=== PATIENT | female | born 1940 | race Caucasian/White ===

== ENCOUNTER 2018-07-31 09:31 | Inpatient (IN) | payer MEDICARE, SELFPAY ==
[2018-07-31] VITALS (20 sets, daily range): BP systolic 74–119; BP diastolic 30–64; PULSE 73–87; RESP 16–23; TEMP 36.4–38.5; O2SAT 94–100; BMI 32.3; BMI 30.4
--- NOTE | 2018-07-31 09:48 | RAD_ITS ---
STUDY: X-RAY CHEST REASON FOR EXAM: Female, 78 years old. Shortness of breath TECHNIQUE: A single frontal view of the chest was obtained. COMPARISON: December 29, 2016 FINDINGS: Lines and tubes: None. Lungs: Under aerated. Minimal increased markings in both lung bases. Pleura: No demonstrated abnormality. Mediastinum/brandon: Unremarkable. Cardiovascular: Moderately enlarged cardiac silhouette. A pacing device is again seen in the left chest. Indistinct central vessels. Atherosclerotic calcifications in the thoracic aorta. Soft tissues: Surgical clips are again seen in the right axilla. Bones: Degenerative changes in spine and shoulders. Upper abdomen: No demonstrated abnormality. RAD/Chest 1 View (Portable) IMPRESSION: Moderate enlargement of the cardiac silhouette with vascular congestion. There is no obvious pleural effusion. Minimal bibasilar atelectasis. Electronically Signed: Whitney Merino MD at 10:55 EST Tel Direct: [phone], Service support ,
--- NOTE | 2018-07-31 09:48 | EKG12_ITS ---
Test Reason : Blood Pressure : / mmHG Vent. Rate : 081 BPM Atrial Rate : 081 BPM P-R Int : 122 ms QRS Dur : 174 ms QT Int : 460 ms P-R-T Axes : -12 255 105 degrees QTc Int : 534 ms Atrial-sensed ventricular-paced rhythm Biventricular pacemaker detected Abnormal ECG Confirmed by AMNA GOODEN, BRAULIO ([id number]), manager editorial RADHA ELLIOTT ([id number] on 08/02/2018 5:06:46 PM Referred By: TAY Confirmed By:BRAULIO WOO MD
--- NOTE | 2018-07-31 09:57 | ED.DCSUM_ITS ---
- ER Visit Summary Date of Service: 07/31/18 Chief Complaint: Cold symptoms and diarrhea History of Present Illness: The patient is a 78 F who is currently undergoing chemotherapy for metastatic breast cancer. Her last treatment was on July 28 in [place]. That evening she developed congestion, cough, diarrhea. Her left leg has been erythematous for some time. She noted increased drainage from that leg over the past 3 or 4 days. Patient does not believe she has had fever, but states she does not have a thermometer. Patient has been on the same chemotherapy regimen for some time and is never had this reaction with her chemo in the past. Physical Examination: Vital signs in triage are unremarkable. Patient sitting upright in bed no acute distress. Head neck examination unremarkable. Heart is regular rate and rhythm. Lung sounds are clear. Abdomen is soft and nontender. Hypoactive bowel sounds are noted. Left lower extremity examination is significant for erythema, warmth, and tenderness of the distal aspect of the lower leg and foot. Findings are consistent with cellulitis. There is an abrasion along the medial lower leg with serosanguineous drainage. Test Results: EKG is paced at [address] change. CBC was a white count of 14.3 with 93% neutrophils. Chemistry studies reveal a sodium of 131, chloride 94. Glucose is 164. BUN is 30 and creatinine is 1.36. LFTs significant for total bili of 1.4 and a direct bili 0.36. Lactate is mildly elevated at 2.3. Portable chest x-ray shows moderate enlargement of the cardiac silhouette with vascular congestion. No obvious pleural effusion. Because we could not get good waveform to monitor the patient's O2 sat and she was complaining of shortness of breath and ABG was performed. On 3 L nasal cannula PO2 is 114 and saturation is 99%. Emergency Department Course and Treatment: Patient is given IV fluids along with IV clindamycin. Blood cultures have been sent. She will require admission for further treatment. Treatment Plan: [] Disposition: Admit Impression: Cellulitis left lower extremity This note was generated with [employer] dictation software. It may contain incorrect words, spelling, and punctuation that were not noted in review of the chart prior to signing ED Disposition - Plan for ED Patient: Chief Complaint: General Illness Referrals: NOT,DEFINED [NON-STAFF] -
[2018-07-31] MEDS: 0.9% Normal Saline 1,000 ML 150 ML IV (09:59)
[2018-07-31 10:20] LABS: Absolute Lymphocyte Count 0.43 X10^3/ul (0.83-4.51); Absolute Neutrophil Count 13.4 X10^3/uL (2.0-7.7); Basophil# 0.01 X10^3/uL; Basophil% 0.1 % (0-1); Hematocrit 39.6 % (37-47); Hemoglobin 13.4 g/dl (12.0-15.0); Lymphocyte # 0.43 X10^3/ul (4.0); Mean Corp Hgb Conc 33.8 g/gl (32-36); Mean Corpuscular Hgb 31.2 pg (27.0-32.0); Mean Corpuscular Volume 92.3 fL (81-99); Mean Platelet Vol. 9.2 fl (6.2-12.0); Monocyte# 0.46 X10^3/uL; Monocyte% 3.2 % (0-10); Neutrophil # 13.38 X10^3/uL (2.7-7.7); Neutrophil % 93.4 % (47-70); Platelet Count 163 K/mm3 (150-450); RBC Distribution Width CV 13.7 % (11.6-14.6); RBC Distribution Width SD 45.9 fl (35.1-43.9); Red Blood Count 4.29 M/mm3 (4.2-5.4); White Blood Count 14.3 K/mm3 (4.4-11.0)
[2018-07-31 10:21] LABS: Differential Indicated SCAN CRITERIA MET; POSITIVE COUNT NO; POSITIVE DIFFERENTIAL YES; POSITIVE MORPHOLOGY YES
[2018-07-31 10:30] LABS: AST(SGOT) 31 U/L (15-37); Alanine Aminotransfer ALT/SGPT 33 U/L (13-56); Albumin, Serum 3.4 g/dL (3.2-5.0); Alkaline Phosphatase 61 U/L (45-117); Anion Gap 10 (5-15); BUN 30 mg/dL (7-18); BUN/Creat Ratio 22.1 RATIO (10-20); Bilirubin, Direct 0.36 mg/dL (0.00-0.30); Chloride 94 mmol/L (98-107); Creatinine, Serum 1.36 mg/dL (0.55-1.02); EST Glomerular Filtration Rate 40 mL/min (>60); Est Glom Filt Rate - Afr Amer 48 mL/min (>60); Globulin 3.8 g/dL (2.2-4.2); Glucose 164 mg/dL (74-106); Potassium 3.9 mmol/L (3.5-5.1); Protein, Total 7.2 g/dL (6.4-8.2); Sodium Level 131 mmol/L (136-145)
[2018-07-31 10:37] LABS: Differential Comment SCANNED
[2018-07-31 10:41] LABS: Allen Test POS; Base Excess 2 mmol/L (-2 to +2); Bicarbonate 25.4 mmol/L (22-26); Blood Gas Specimen Type ART; O2 Delivery Device Nasal Can; PO2 114 mmHG (75-100); SITE L Radial; SO2 99 % (95-99); Time Given 1025; Total Carbon Dioxide 26 mmol/L; pCO2 34.5 mmHg (35-45); pH 7.47 (7.35-7.45)
[2018-07-31 11:04] LABS: Lactic Acid 2.3 mmol/L (0.4-2.0)
--- NOTE | 2018-07-31 11:04 | ED.RN ---
ELEVATED LACTIC RESULT RECEIVED, DR CROSS NOTIFIED.
--- NOTE | 2018-07-31 11:54 | HP.PCM_ITS ---
History of Present Illness Date of Admission: 07/31/18 Chief Complaint: painful leg swelling, lethargy The patient is a 78 year old F with a past medical history which includes metastatic breast cancer undergoing chemotherapy, heart failure with unknown EF and hypertension. She was admitted through the ED with a complaint of left lower leg swelling and redness which had worsened over the last few days with associated lethargy. Patient states that lower extremities have been swollen for some time now though she cannot see exactly how long. She had her last chemotherapy session up in [place] at [facility] last . She subsequently noted that she was feeling weaker and more tired and noted that her left lower extremity was getting more swollen, red and painful. She had associated discharge from her leg. Symptoms did not improve and so she decided to come into the ED today. She denied any associated fever but admitted to chills. She denies any chest pain, palpitations, dizziness, abdominal pain, diarrhea or vomiting. She did admit to rhinorrhea which she states is chronic. The ED, vitals were significant for temperature of 101.3 Fahrenheit with respiratory rate of 20 and blood pressure of 109/42. She was saturating at 100% on 2 L of oxygen. CBC showed white cell count of 14.3. Lactic acid was 2.3 and chemistry showed creatinine of 1.36 and sodium of 131. Chest x-ray showed moderate enlargement of the cardiac silhouette with vascular congestion and no obvious pleural effusion. She has been admitted to be managed for severe sepsis due to cellulitis of the left lower extremity. [] Past Medical History Past Medical History (Chronic Problems): Chronic Problems Chronic CHF (Chronic) Acute pancreatitis (Chronic) Allergies Sulfa (Sulfonamide Antibiotics) Allergy (Verified 07/31/18 09:36) FEVER AND PUT ME IN THE BED Home Medications: Ambulatory Orders Medication Instructions Recorded Albuterol IH (ProAir) [Proair Hfa 1 - 2 puff INHALATION Q4H PRN PRN 10/19/14 (SP)Vent Pts] Ascorbic Acid [Vitamin C] 500 mg PO DAILY@0800 10/19/14 Atorvastatin Calcium [Lipitor] 10 mg PO DAILY 10/19/14 Calcitriol [Rocaltrol] 0.25 mcg PO DAILY 10/19/14 Calcium Citrate/Vitamin D3 [Hm 1 each PO DAILY 10/19/14 Calcium Citrate +Vit D3 Tab] Carvedilol [Coreg] 3.125 mg PO BID 10/19/14 Ergocalciferol [Vitamin D] 50,000 unit PO QWEEK 10/19/14 Furosemide [Lasix] 1.5 tab PO DAILY 10/19/14 Gabapentin [Neurontin] 300 mg PO BID PRN PRN 10/19/14 Levothyroxine [Synthroid] 25 mcg PO DAILY 10/19/14 [place]-3S/Dha/Epa/Fish Oil/D3 [Fish 1 each PO DAILY 10/19/14 Bbh-Ohlyp-4-Vit D Softgel] Potassium Chloride [Klor-Con 10] 10 meq PO DAILY 10/19/14 Spironolactone [Aldactone] 25 mg PO BID 10/19/14 Oxycodone HCl/Acetaminophen 1 tablet PO Q4H PRN PRN #12 tablet 06/14/15 [Percocet 5/325] Alendronate Sodium [Fosamax] 70 mg PO Q7D@0700 04/29/17 Aspirin [Aspirin, Baby] 81 mg PO DAILY@0800 04/29/17 Ciclopirox 1 applicatio TOPICAL QHS 04/29/17 Hydrocodone Bitart/Apap 5-325 1 tablet PO Q6H PRN PRN 04/29/17 [[place] 5MG-325MG] Multivitamins,Therapeutic 1 tablet PO DAILY 04/29/17 [Multivitamin] Ubidecarenone [Coenzyme Q-10] 200 mg PO DAILY 04/29/17 Lisinopril 2.5 mg PO DAILY 07/31/18 Surgical History: hysterectomy, mastectomy Lives: With Family Smoking Status: Former smoker Alcohol: None - *Family History Maternal History Items: Heart Disease, Hypertension Review of Systems Constitutional: Reports: Anorexia, Chills, Malaise, Weakness, Fatigue. Denies: Fever Eyes: Denies: Blurred vision HEENT: Reports: - - Rhinorrhea. Denies: Head Aches, Sinus Congestion, Sinus Drainage Cardiovascular: Reports: Edema. Denies: Chest Pain, Palpitations Respiratory: Denies: Cough, Shortness of Breath, Shortness of breath at rest, Shortness of breath upon exertion, Sputum production, Wheezing Gastrointestinal: Denies: Abdominal Pain, Nausea, Vomiting Genitourinary: Denies: Dysuria Musculoskeletal: Reports: Back Pain, Leg Pain - and swelling, Neck Pain. Denies: Joint Pain, Joint Tenderness Skin: Denies: Rash, Wounds Neurological: Denies: Numbness, Tingling, Focal weakness Psychiatric: Denies: Anxiety, Depression, Homicidal Ideations, Suicidal Ideations Hematologic/ Lymphatic: Denies: Easy Bruising, Easy Bleeding VTE Information - Inpt Only VTE Present on Admission: No - Duplex pending VTE Pharm Prophylaxis ordered?: Yes VTE Suspected: Suspected DVT - Duplex of LLE pending - Physical Exam General: Alert, Oriented x3, Cooperative, Lethargic HEENT: Atraumatic, PERRLA, EOMI, Normocephalic Oral: Dry Mucosa Neck: Supple, No JVD, Negative Carotid Bruits Lungs: - - mildly decreased breath sounds bibasally. No wheezing or crackles. Cardiovascular: Regular rate, Regular Rhythm, Normal S1, Normal S2, No murmurs Abdomen: Bowel Sounds Present, Soft, Non Tender, Non-Distended, No Hepato- splenomegaly Extremities: - - bilateral LE 2+ pitting pedal edema. LLE is erythematous, with differential warmth, tender to touch, superficial ulceration on posterior lower LLE, oozing serous fluid. LLE is very tender to touch Skin: - - as under extremities Musculoskeletal: Tenderness - as under extremities examination Lymphatic: No Cervical, Supraclavicular, or Inguinal Adenopathy Neurological: Cranial nerves II-XII grossly intact, Neuro grossly intact Psych/Mental Status: Normal Affect, Appropriate, Alert and oriented to time, place, person, mood and affect Vital Signs Temp Pulse Resp BP Pulse Ox 97.6 F L 87 17 112/61 96 07/31/18 09:32 07/31/18 11:38 07/31/18 11:38 07/31/18 11:38 07/31/18 11:38 Oxygen Flow Rate (L/min) 2 Oxygen Delivery Method Nasal Cannula Weight: 200 lb Body Mass Index (BMI) 32.3 Laboratory Tests Past 24 Hrs 07/31/18 07/31/18 07/31/18 10:05 10:05 10:05 WBC 14.3 H RBC 4.29 Hgb 13.4 Hct 39.6 MCV 92.3 MCH 31.2 MCHC 33.8 RDW 13.7 RDW Differential 45.9 H Plt Count 163 MPV 9.2 Immature Gran % (Auto) 0.300 Neut % (Auto) 93.4 H Lymph % (Auto) 3.0 L [place] % (Auto) 3.2 Eos % (Auto) 0.0 Baso % (Auto) 0.1 Absolute Neuts (auto) 13.4 H Absolute Lymphs (auto) 0.43 L Total Counted Not Reportable Differential Comment SCANNED Specimen Type Sample Site pH Bicarbonate Actual POC Total CO2 Base Excess O2 Saturation ABG pCO2 ABG pO2 Adeel Test O2 Delivery Device Liter Flow Blood Gas Notified Whom Blood Gas Notified Time Sodium 131 L Potassium 3.9 Chloride 94 L Carbon Dioxide 27.0 Anion Gap 10 BUN 30 H Creatinine 1.36 H Estim Creat Clear Calc 31.40 Est GFR (MDRD) Af Amer 48 L Est GFR (MDRD) Non-Af 40 L BUN/Creatinine Ratio 22.1 H Glucose 164 H Lactic Acid 2.3 H Calcium 9.0 Total Bilirubin 1.40 H Direct Bilirubin 0.36 H AST 31 ALT 33 Alkaline Phosphatase 61 Total Protein 7.2 Albumin 3.4 Globulin 3.8 07/31/18 10:35 WBC RBC Hgb Hct MCV MCH MCHC RDW RDW Differential Plt Count MPV Immature Gran % (Auto) Neut % (Auto) Lymph % (Auto) [place] % (Auto) Eos % (Auto) Baso % (Auto) Absolute Neuts (auto) Absolute Lymphs (auto) Total Counted Differential Comment Specimen Type ART Sample Site L Radial pH 7.47 H Bicarbonate Actual 25.4 POC Total CO2 26 Base Excess 2 O2 Saturation 99 ABG pCO2 34.5 L ABG pO2 114 H Adeel Test POS O2 Delivery Device Nasal Can Liter Flow 3.0 Blood Gas Notified Whom ED Blood Gas Notified Time 1025 Sodium Potassium Chloride Carbon Dioxide Anion Gap BUN Creatinine Estim Creat Clear Calc Est GFR (MDRD) Af Amer Est GFR (MDRD) Non-Af BUN/Creatinine Ratio Glucose Lactic Acid Calcium Total Bilirubin Direct Bilirubin AST ALT Alkaline Phosphatase Total Protein Albumin Globulin Diagnostic Data Chest X-Ray 07/31/18 09:48 IMPRESSION: Moderate enlargement of the cardiac silhouette with vascular congestion. There is no obvious pleural effusion. Minimal bibasilar atelectasis. Electronically Signed: Whitney Merino MD at 10:55 EST Tel Direct: [phone], Service support , Assessment/Plan 78-year-old female presenting with a complaint of left lower extremity pain and swelling as well as generalized malaise and lethargy. 1. severe sepsis due to LLE cellulitis * Spiked a fever to 108.3 Fahrenheit on admission. Has white cell count of 14.3. Lactic acid was 2.3. * SIRS criteria 2/4 with focus of infection and elevated lactic acid fits criteria for severe sepsis * admit to MEd Surg with telemetry * keep LLE elevated * started on IV clindamycin in ED; will continue * [place] for pain * will get duplex of LEs to rule out DVT * will trend lactic acid * BNP is mildly elevated at 301.8; will therefore hydrate very gently until lactic acid resolves, then dc iVF * 2. Acute on chronic heart failure, EF is unknown * patient has a history of heart failure, no 2D echo in records * on PO lasix; will hold and diurese with IV lasix 40mg bid. * CXR showed: Moderate enlargement of the cardiac silhouette with vascular congestion and minimal bibasilar atelectasis. * BNP mildly elevated at 301 * per son, has ICD in place, so she likely has reduced EF * also on spironolactone and lisinopril * input output chart * on carvedilol, lisinopril and spironolactone * 3. Metastatic breast ca * Mastectomy about 7 years ago but cancer has spread to the bones. She complains of neck pain and back pain. * Undergoing chemotherapy at [facility]. Last chemotherapy session was last . * Follow up with oncologist upon discharge. * Give pain medication- on [place] and gabapentin * 4. Hyponatremia: * Sodium is 131. May be hypovolemic hypotonic hyponatremia due to dehydration. Fluid overload is also a consideration in light of mildly elevated BNP of 301 * Will check serum osmolality. 5. Hypothyroidism: On Synthroid 6. CKD 3: Cr is 1.36, baseline ~ 1.5 from 2016. will monitor DVT prophylaxis: Heparin Code Status: Full code * Patient counseled extensively about different types of CODE STATUS including full code, DNR CCA and DNR CCA. Patient elects to be full code. Total ugzy-sd-dery time 17 minutes. Code Visit Inpatient E&M: 56050 Init Hosp L3 Procedures: 48743 Advncd Care Plan 30 Min
--- NOTE | 2018-07-31 12:50 | ED.RN ---
attempted several times to obtain med list. [facility] did not have updated list. ask family member to bring med list in or pill bottles in, he refused. family member states he tried to get into my chart to get list, unable. asked pt to call in med list when he got home, and he agreed. upon attempting to take pt to room, family was on phone obtaining list. family left list in er and went to the floor. list was incomplete. attempted to but in list, but unable to confirm all meds. family upset that we were not able to obtain list from [facility].
[2018-07-31 13:51] LABS: BNP,B-Type NATRIURETIC PEPTIDE 301.8 pg/mL (0-100)
[2018-07-31] MEDS: HYDROcodone Bitartrate/Apap 5/325 Tablet PO (13:55)
[2018-07-31 14:10] LABS: Reflex Lactate? Y
[2018-07-31 15:26] LABS: Lactic Acid 2.4 mmol/L (0.4-2.0)
[2018-07-31] MEDS: 0.9% Normal Saline 1,000 ML 100 ML IV ×2 (15:45→23:40)
[2018-07-31 16:19] LABS: Mucous, Urine 0 SEEN /hpf (<or=2+); Red Blood Cells-Urine 0 SEEN /hpf (0-5); Squamous Epithelial Cells - UA 0 SEEN /hpf (5-10)
[2018-07-31 16:20] LABS: Color, Urine Yellow (Yellow); Glucose, Dipstick Normal (Normal); Ketone-Dipstick Negative (Negative); Leukocyte Esterase-Dipstick 100 /ul (Negative); Nitrite-Dipstick Negative (Negative); Occult Blood-Urine 10 /ul (Negative); Protein-Dipstick Negative (Negative); Specific Gravity, Urine 1.015 (1.002-1.030); Urine Bilirubin Dipstick Negative (Negative); Urine Clarity Clear (Clear); Urine Urobilinogen Normal (Normal)
[2018-07-31 16:26] LABS: Hyaline Cast 0-5 SEEN /lpf (0-5)
[2018-07-31 16:27] LABS: Bacteria 1+ /hpf (None Seen); White Blood Cells 0-5 SEEN /hpf (0-5)
[2018-07-31] MEDS: 0.9% Normal Saline 1,000 ML 999 ML IV (16:33)
--- NOTE | 2018-07-31 17:01 | ECHOD_ITS ---
Reason For Study: ARRHYTHMIA Procedure This was a 2D Doppler, Color Flow transthoracic echocardiogram. Exam performed portable in ICU/CCU. Left Ventricle Normal LV size. The estimated ejection fraction is 40 %. There is mild to moderate global hypokinesis of the left ventricle. Right Ventricle Normal RV size. ICD or pacer leads identified within the right ventricle. Normal systolic function. Atria The left atrium is moderately enlarged. The right atrium is mildly enlarged. Mitral Valve Normal mitral valve. Mild (1+) eccentric mitral valve insufficiency. Tricuspid Valve Normal tricuspid valve. Mild (1+) tricuspid valve insufficiency. Pulmonary artery systolic pressure is 35 mmHg. Aortic Valve Normal aortic valve. Trisinus/trileaflet aortic valve. Pulmonic Valve Normal pulmonic valve. Great Vessels Normal aortic root. The pulmonary artery is normal size. The inferior vena cava is dilated. Pericardium/Pleural No pericardial effusion. MMode/2D Measurements & Calculations LVIDd: 6.0 cm IVSd: 0.66 cm Ao root diam: 3.3 cm LVIDs: 5.3 cm LVPWd: 0.80 cm RVDd: 4.1 cm FS: 13.0 % LAV(MOD-bp): 95.5 ml LA A4 area: 28.2 cm2 LA dimension(2D): 3.8 cm LAV(MOD-bp) Indexed: 45.8 ml/m2 LAV(MOD-sp2): 93.5 ml LAV(MOD-sp4): 95.1 ml RA A4 area: 24.4 cm2 Time Measurements MV dec time: 0.23 sec Doppler Measurements & Calculations MV E max emiliano: 131.4 cm/sec Lat Peak E' Emiliano: 6.0 cm/sec Med Peak E' Emiliano: 3.7 cm/sec MV A max emiliano: 108.0 cm/sec E/E' lat: 21.9 E/E' med: 35.1 MV E/A: 1.2 MV V2 max: 116.4 cm/sec Ao V2 max: 201.7 cm/sec LV V1 max: 146.9 cm/sec MV max P.4 mmHg Ao max P.3 mmHg LV V1 max P.6 mmHg MV V2 mean: 80.3 cm/sec Ao V2 mean: 137.9 cm/sec LV V1 mean P.7 mmHg MV mean P.8 mmHg Ao mean P.6 mmHg LV V1 mean: 101.7 cm/sec MV V2 VTI: 35.6 cm Ao V2 VTI: 39.9 cm LV V1 VTI: 28.4 cm PA V2 max: 125.7 cm/sec TR max emiliano: 267.4 cm/sec MV P1/2t-pr_phl: 97.0 msec TR max P.9 mmHg Interpretation Summary Normal LV size. The estimated ejection fraction is 40 %. There is mild to moderate global hypokinesis of the left ventricle. The left atrium is moderately enlarged. The right atrium is mildly enlarged. The global longitudinal strain = -11.8% (abnormal). Ordering Physician: Kortney Bella Referring Physician: ALEJO DURAN Performed By: Marixa Amador, JAMES, RVT
--- NOTE | 2018-07-31 18:50 | NURSING ---
NOTIFIED THAT WHEN PT'S SON ESTEFANI WAS NOTIFIED OF ORDERS FOR TRANSFER HE IS CONCERNED THAT IF PT NEEDS ICU THEN HE WANTS HER SENT TO [facility]. TEXT SENT TO HER ABOUT THIS AND INCLUDED PHONE NUMBER. RESPONSE I'M OUT OF THE HOSPITAL. IF HE WANTS HER TRANSFERRED THE NIGHT HOSPITALIST WILL HAVE TO TAKE CARE OF THAT. LET ME CONFIRM WHO WILL BE COMING. IT'S DR. RADNALL. I WILL TALK TO HIM AND GET BACK TO YOU PRIMARY RN INFORMED.
--- NOTE | 2018-07-31 18:50 | PCM.RX.CS ---
Consult Pharmacy has been consulted to manage selected antiobiotic: Vancomycin Type of Consult: New start Suspected Infection: Sepsis, Skin/Soft tissue Labs: Sodium 131 mmol/L (136-145) L 07/31/18 10:05 Potassium 3.9 mmol/L (3.5-5.1) 07/31/18 10:05 Chloride 94 mmol/L (98-107) L 07/31/18 10:05 Carbon Dioxide 27.0 mmol/L (21.0-32.0) 07/31/18 10:05 Anion Gap 10 (5-15) 07/31/18 10:05 BUN 30 mg/dL (7-18) H 07/31/18 10:05 Creatinine 1.36 mg/dL (0.55-1.02) H 07/31/18 10:05 Est GFR (MDRD) Af Amer 48 mL/min (>60) L 07/31/18 10:05 Est GFR (MDRD) Non-Af 40 mL/min (>60) L 07/31/18 10:05 BUN/Creatinine Ratio 22.1 RATIO (10-20) H 07/31/18 10:05 Glucose 164 mg/dL (74-106) H 07/31/18 10:05 Microbiology: Microbiology 07/31/18 10:05 Blood Culture (Wb) - Anticubital Left Blood Culture - Preliminary Weight used for dosin.3 kg Estimated Creatinine Clearance: 31 ML/MIN Goal Trough: 10-15 mcg/mL Pharmacy Plan for Drug Dosing: Give initial loading dose of 2000mg IV x1, then continue with 1000mg IV q24h. Obtain a vancomycin trough before the 3rd dose. Pharmacy Service will continue to monitor and adjust dosing as required. Follow-Up Labs: Trough Vancomycin Labs to be done on [date and time ordered]: 08/02/18 at 18:30
--- NOTE | 2018-07-31 18:58 | NURSING ---
Report Scott SUAZO, including that wound culture. Spoke with Jonah the son that mom is transferred to ICU, she will be observed more closely in ICU.
--- NOTE | 2018-07-31 19:05 | NURSING ---
PT TRANSFERRED TO ICU ON CARDIAC MONITORING AND C.SPO2. TO BEDSIDE FOR EVAL.
[2018-07-31] MEDS: Ipratropium/Albuterol Sulfate 3 ML AMPUL.NEB INHALATION (19:26)
--- NOTE | 2018-07-31 19:28 | PCM.PN.BLA ---
Progress Note Severe Sepsis Follow up Note: Patient was transferred to the ICU because of Severe Sepsis secondary left leg cellulitis. Nurse reported that Patient had received 3000ml IVF within the last 10 hours. Importantly patient has a hx of heart failure, unknown EF at this time. She is on home Lasix. Lasix is being held. LCTA s1,S2 present; pulse 2/4 Left leg erythematous and very tender with small excoriation Patient is on IV Zosyn and Vancomycin. She initially received Vancomycin. Blood Cultures are pending Lactic acid is 2.3 and it is being trended. Continue NSS at 100ml/hr for 1 Liter. If SBP < 90 will start pressors. Family want patient to be transferred to [facility] [place]. Talked to Son, Mr. Rhonda Khan. Patient has deferred medical decision to Son. Son wants patient to be transferred to [facility] [place]
[2018-07-31 19:29] LABS: Lactic Acid 1.5 mmol/L (0.4-2.0)
--- NOTE | 2018-07-31 19:40 | PCM.DC.SUM ---
Discharge Date and Diagnosis - Problem List Patient Problems: Active and Suspected Problems Severe sepsis (Acute) Date of Admission: 07/31/18 Date of Discharge: 08/01/18 - Secondary Discharge Diagnosis Chronic Problems Chronic CHF (Chronic) Acute pancreatitis (Chronic) Hospital Course and Treatment Imaging Results: 07/31/18 17:01 Echo Complete [ECHO] Routine Summary of Care Provided: Per hpi: The patient is a 78 year old F with a past medical history which includes metastatic breast cancer undergoing chemotherapy, heart failure with unknown EF and hypertension. She was admitted through the ED with a complaint of left lower leg swelling and redness which had worsened over the last few days with associated lethargy. Patient states that lower extremities have been swollen for some time now though she cannot see exactly how long. She had her last chemotherapy session up in [place] at [facility] last . She subsequently noted that she was feeling weaker and more tired and noted that her left lower extremity was getting more swollen, red and painful. She had associated discharge from her leg. Symptoms did not improve and so she decided to come into the ED today. She denied any associated fever but admitted to chills. She denies any chest pain, palpitations, dizziness, abdominal pain, diarrhea or vomiting. She did admit to rhinorrhea which she states is chronic. The ED, vitals were significant for temperature of 101.3 Fahrenheit with respiratory rate of 20 and blood pressure of 109/42. She was saturating at 100% on 2 L of oxygen. CBC showed white cell count of 14.3. Lactic acid was 2.3 and chemistry showed creatinine of 1.36 and sodium of 131. Chest x-ray showed moderate enlargement of the cardiac silhouette with vascular congestion and no obvious pleural effusion. She has been admitted to be managed for severe sepsis due to cellulitis of the left lower extremity. Discharge Summary: Nurse reported that Patient had received 3000ml IVF within the last 10 hours. Her SBP after IVF administration as above was <80. She was at the Medical Surgical unit but she had to be transferred to the ICU because of hemodynamic instability. Patient agreed to ICU her blood pressure was 117/62 (MAP 80) Importantly patient has a hx of heart failure, unknown EF at this time. She is on home Lasix. Lasix is being held. Patient was on 3 L nasal cannula and is oxygen saturation was 100%. LCTA s1,S2 present; pulse 2/4 Left leg erythematous and very tender with small excoriation Patient is on IV Zosyn and Vancomycin. She initially received Vancomycin. Blood Cultures are pending Lactic acid is 2.3 and it is being trended. Continue NSS at 100ml/hr for 1 Liter. Family want patient to be transferred to [facility]. Talked to Son, Mr. Rhonda Khan. Patient has deferred medical decision to Son. Son wants patient to be transferred to [facility]. called [facility]. 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 If SBP < 90 will start pressors. Patient Problems: Active and Suspected Problems Severe sepsis (Acute) - Physical Exam General: Alert, Oriented x3, Cooperative HEENT: Atraumatic, PERRLA, EOMI, Normocephalic Neck: Supple, No JVD, Negative Carotid Bruits Lungs: Clear to auscultation, Normal air movement Cardiovascular: Regular rate, No murmurs Abdomen: Bowel Sounds Present, Soft, Non Tender Extremities: Capillary Refill Less than 3 Seconds, Tenderness - left leg Skin: - - Left leg with redness and swelling; and with small excoriation. Musculoskeletal: No Tenderness to Palpation of Joints or Extremities Neurological: Neuro grossly intact Psych/Mental Status: Normal Affect, Appropriate Vital Signs Temp Pulse Resp BP Pulse Ox 98.5 F 75 18 78/37 L 97 07/31/18 18:25 07/31/18 18:25 07/31/18 18:25 07/31/18 18:25 07/31/18 18:25 Oxygen Flow Rate (L/min) 3 Oxygen Delivery Method Nasal Cannula Weight: 93.3 kg Body Mass Index (BMI) 30.4 Intake and Output for Last 24 Hours 07/29/18 07/30/18 07/31/18 23:59 23:59 23:59 Intake Total 1690 / 1690 Output Total 250 / 250 Balance 1440 / 1440 Microbiology Past 72 Hours 07/31/18 10:05 Blood Culture - Preliminary Blood Culture (Wb) - Anticubital Left Laboratory Tests Past 24 Hrs 07/31/18 07/31/18 07/31/18 10:05 10:05 10:05 WBC 14.3 H RBC 4.29 Hgb 13.4 Hct 39.6 MCV 92.3 MCH 31.2 MCHC 33.8 RDW 13.7 RDW Differential 45.9 H Plt Count 163 MPV 9.2 Immature Gran % (Auto) 0.300 Neut % (Auto) 93.4 H Lymph % (Auto) 3.0 L [place] % (Auto) 3.2 Eos % (Auto) 0.0 Baso % (Auto) 0.1 Absolute Neuts (auto) 13.4 H Absolute Lymphs (auto) 0.43 L Total Counted Not Reportable Differential Comment SCANNED Specimen Type Sample Site pH Bicarbonate Actual POC Total CO2 Base Excess O2 Saturation ABG pCO2 ABG pO2 Adeel Test O2 Delivery Device Liter Flow Blood Gas Notified Whom Blood Gas Notified Time Sodium 131 L Potassium 3.9 Chloride 94 L Carbon Dioxide 27.0 Anion Gap 10 BUN 30 H Creatinine 1.36 H Estim Creat Clear Calc 31.40 Est GFR (MDRD) Af Amer 48 L Est GFR (MDRD) Non-Af 40 L BUN/Creatinine Ratio 22.1 H Glucose 164 H Serum Osmolality Lactic Acid 2.3 H Calcium 9.0 Total Bilirubin 1.40 H Direct Bilirubin 0.36 H AST 31 ALT 33 Alkaline Phosphatase 61 B-Natriuretic Peptide Total Protein 7.2 Albumin 3.4 Globulin 3.8 Urine Color Urine Clarity Urine pH Ur Specific [place] Urine Protein Urine Glucose (UA) Urine Ketones Urine Occult Blood Urine Nitrite Urine Bilirubin Urine Urobilinogen Ur Leukocyte Esterase Urine RBC Urine WBC Ur Squamous Epith Cells Urine Bacteria Hyaline Casts Urine Mucus 07/31/18 07/31/18 07/31/18 10:05 10:35 14:30 WBC RBC Hgb Hct MCV MCH MCHC RDW RDW Differential Plt Count MPV Immature Gran % (Auto) Neut % (Auto) Lymph % (Auto) [place] % (Auto) Eos % (Auto) Baso % (Auto) Absolute Neuts (auto) Absolute Lymphs (auto) Total Counted Differential Comment Specimen Type ART Sample Site L Radial pH 7.47 H Bicarbonate Actual 25.4 POC Total CO2 26 Base Excess 2 O2 Saturation 99 ABG pCO2 34.5 L ABG pO2 114 H Adeel Test POS O2 Delivery Device Nasal Can Liter Flow 3.0 Blood Gas Notified Whom ED Blood Gas Notified Time 1025 Sodium Potassium Chloride Carbon Dioxide Anion Gap BUN Creatinine Estim Creat Clear Calc Est GFR (MDRD) Af Amer Est GFR (MDRD) Non-Af BUN/Creatinine Ratio Glucose Serum Osmolality Lactic Acid 2.4 H Calcium Total Bilirubin Direct Bilirubin AST ALT Alkaline Phosphatase B-Natriuretic Peptide 301.8 H Total Protein Albumin Globulin Urine Color Urine Clarity Urine pH Ur Specific [place] Urine Protein Urine Glucose (UA) Urine Ketones Urine Occult Blood Urine Nitrite Urine Bilirubin Urine Urobilinogen Ur Leukocyte Esterase Urine RBC Urine WBC Ur Squamous Epith Cells Urine Bacteria Hyaline Casts Urine Mucus 07/31/18 07/31/18 07/31/18 16:15 18:45 18:50 WBC RBC Hgb Hct MCV MCH MCHC RDW RDW Differential Plt Count MPV Immature Gran % (Auto) Neut % (Auto) Lymph % (Auto) [place] % (Auto) Eos % (Auto) Baso % (Auto) Absolute Neuts (auto) Absolute Lymphs (auto) Total Counted Differential Comment Specimen Type Sample Site pH Bicarbonate Actual POC Total CO2 Base Excess O2 Saturation ABG pCO2 ABG pO2 Adeel Test O2 Delivery Device Liter Flow Blood Gas Notified Whom Blood Gas Notified Time Sodium Potassium Chloride Carbon Dioxide Anion Gap BUN Creatinine Estim Creat Clear Calc Est GFR (MDRD) Af Amer Est GFR (MDRD) Non-Af BUN/Creatinine Ratio Glucose Serum Osmolality Pending Lactic Acid 1.5 Calcium Total Bilirubin Direct Bilirubin AST ALT Alkaline Phosphatase B-Natriuretic Peptide Total Protein Albumin Globulin Urine Color Yellow Urine Clarity Clear Urine pH 5.0 Ur Specific [place] 1.015 Urine Protein Negative Urine Glucose (UA) Normal Urine Ketones Negative Urine Occult Blood 10 H Urine Nitrite Negative Urine Bilirubin Negative Urine Urobilinogen Normal Ur Leukocyte Esterase 100 H Urine RBC 0 SEEN Urine WBC 0-5 SEEN Ur Squamous Epith Cells 0 SEEN Urine Bacteria 1+ Hyaline Casts 0-5 SEEN Urine Mucus 0 SEEN Discharge Diet: No Restrictions Home Medications: Medications to take at Discharge Albuterol IH (ProAir) [Proair Hfa (SP)Vent Pts] 1 - 2 puff INHALATION Q4H PRN PRN 10/19/14 Ascorbic Acid [Vitamin C] 500 mg PO DAILY@0800 10/19/14 Atorvastatin Calcium [Lipitor] 10 mg PO DAILY 10/19/14 Calcitriol [Rocaltrol] 0.25 mcg PO DAILY 10/19/14 Calcium Citrate/Vitamin D3 [Hm Calcium Citrate +Vit D3 Tab] 1 each PO DAILY 10/19/14 Carvedilol [Coreg] 3.125 mg PO BID 10/19/14 Ergocalciferol [Vitamin D] 50,000 unit PO QWEEK 10/19/14 Furosemide [Lasix] 1.5 tab PO DAILY 10/19/14 Gabapentin [Neurontin] 300 mg PO BID PRN PRN 10/19/14 Levothyroxine [Synthroid] 25 mcg PO DAILY 10/19/14 [place]-3S/Dha/Epa/Fish Oil/D3 [Fish Okq-[place]un[place]-7-Vit D Softgel] 1 each PO DAILY 10/19/14 Potassium Chloride [Klor-Con 10] 10 meq PO DAILY 10/19/14 Spironolactone [Aldactone] 25 mg PO BID 10/19/14 Oxycodone HCl/Acetaminophen [Percocet 5/325] 1 tablet PO Q4H PRN PRN #12 tablet 06/14/15 Alendronate Sodium [Fosamax] 70 mg PO Q7D@0700 04/29/17 Aspirin [Aspirin, Baby] 81 mg PO DAILY@0800 04/29/17 Ciclopirox 1 applicatio TOPICAL QHS 04/29/17 Hydrocodone Bitart/Apap 5-325 [[place] 5MG-325MG] 1 tablet PO Q6H PRN PRN 04/29/17 Multivitamins,Therapeutic [Multivitamin] 1 tablet PO DAILY 04/29/17 Ubidecarenone [Coenzyme Q-10] 200 mg PO DAILY 04/29/17 Lisinopril 2.5 mg PO DAILY 07/31/18 Primary Care Physician: NOT,DEFINED [NON-STAFF] - Medical Necessity - Tobacco Use Smoking Status: Former smoker Meaningful Use Info Meaningful Use Diagnoses (Choose all that apply): None applicable Code Visit Inpatient E&M: 84713 Disch Hosp
[2018-07-31 19:59] LABS: Osmolality, Serum 282 mOsm/KG (280-301)
[2018-07-31] MEDS: Piperacil/Tazobactam 3.375 GM/50 ML ML IV (22:45)
[2018-07-31] MEDS: Atorvastatin Calcium 10 MG Tablet PO (22:51)
[2018-07-31] MEDS: Acetaminophen 325 MG Tablet 650 MG PO (22:51)
[2018-08-01] VITALS (19 sets, daily range): BP systolic 92–122; BP diastolic 43–65; PULSE 62–79; RESP 16–21; TEMP 36.4–37; O2SAT 94–100
[2018-08-01] MEDS: Ipratropium/Albuterol Sulfate 3 ML AMPUL.NEB INHALATION (00:08)
[2018-08-01] MEDS: Levothyroxine 25 MCG TABLET PO (05:25)
[2018-08-01] MEDS: Piperacil/Tazobactam 3.375 GM/50 ML ML IV (05:28)
--- NOTE | 2018-08-01 06:35 | PCM.PN.BLA ---
Progress Note Severe Sepsis Follow up: Patient is being followed up for severe sepsis secondary to left leg cellulitis. Vitals: BP 98/54; RR 16-18; O2 Sat 98% on 2L; Temperature 97.9 Alert x 3 LCTA S1, S2 present. Bowels sound present. Abdomen no tender EXT: Bilateral varicose veins of feet. DP pulse 2/4 on right leg; 1/4 left leg. Lower left leg erythema and tenderness. Tenderness improved from previous. Erythema improved from previous. Blood cultures are pending. Continue Broad spectrum antibiotics: Vancomycin and Zosyn. Continue [place] for pain. Awaiting BLE DVT rule out with doppler. Abnormal Urinalysis: Noted to have occult blood and elevated leukocyte esterase. Urine bacteria 1+; no nitrite. No squamous present. No urinary symptoms. Urine cultures are pending. In any case Zosyn is broad spectrum for cystitis. Discussed with patient that [facility] has been called for transfer but she is welcomed to let us know if she decides to stay.
[2018-08-01 06:36] LABS: Anion Gap 10 (5-15); BUN 33 mg/dL (7-18); BUN/Creat Ratio 31.1 RATIO (10-20); Calcium,Total 7.4 mg/dL (8.5-10.1); Chloride 103 mmol/L (98-107); Creatinine, Serum 1.06 mg/dL (0.55-1.02); EST Glomerular Filtration Rate 53 mL/min (>60); Est Glom Filt Rate - Afr Amer 64 mL/min (>60); Estimated Creatinine Clearance 44.97 ml/min; Glucose 106 mg/dL (74-106); Potassium 3.6 mmol/L (3.5-5.1); Sodium Level 137 mmol/L (136-145)
--- NOTE | 2018-08-01 06:58 | CON.PCM_ITS ---
Reason for Consult Date of Consultation: 08/01/18 Reason for Consultation: Possible septic shock History of Present Illness: The patient is a 78-year-old female, with a history as outlined below, who initially presented to the emergency department on July 31 with complaints of nasal congestion, cough and left lower extremity pain and redness. The patient reportedly has a history of metastatic breast cancer and is undergoing treatment with chemotherapy. The patient receives all of her primary medical care through the [facility]. The patient currently denies the presence of abdominal pain, nausea or vomiting. She does report a mild degree of shortness of breath but denies the presence of a current cough. She states that she utilizes oxygen occasionally in her home environment as needed. The patient denies the presence of hematuria, dysuria or urinary frequency. On presentation to the emergency department, the patient was initially noted to be afebrile, hemodynamically stable and maintaining appropriate oxygen saturations on room air. Laboratory evaluation revealed elevated white blood cell count of 14,000. Chemistry profile revealed evidence of acute kidney injury with a creatinine of 1.36. Lactate was elevated to 2.3. BNP was mildly elevated to 301. The patient was given supplemental IV fluids and antibiotics. She was initially admitted to the medical surgical floor for ongoing management. On the evening of July 31, the patient did require transfer to the medical intensive care unit due to hypotension. The patient received additional supplemental IV fluid hydration and stabilized from a hemodynamic perspective. She never required vasopressor support. It does appear that the patient's family has requested transfer to the [facility] for further management, given that she receives all of her routine medical care there. At the current time, there is no bed available, but she is still awaiting transfer. Past Medical History Past Medical History (Chronic Problems): Chronic Problems Chronic CHF (Chronic) Acute pancreatitis (Chronic) Allergies Sulfa (Sulfonamide Antibiotics) Allergy (Verified 07/31/18 09:36) FEVER AND PUT ME IN THE BED Home Medications: Ambulatory Orders Medication Instructions Recorded Albuterol IH (ProAir) [Proair Hfa 1 - 2 puff INHALATION Q4H PRN PRN 10/19/14 (SP)Vent Pts] Ascorbic Acid [Vitamin C] 500 mg PO DAILY@0800 10/19/14 Atorvastatin Calcium [Lipitor] 10 mg PO DAILY 10/19/14 Calcitriol [Rocaltrol] 0.25 mcg PO DAILY 10/19/14 Calcium Citrate/Vitamin D3 [Hm 1 each PO DAILY 10/19/14 Calcium Citrate +Vit D3 Tab] Carvedilol [Coreg] 3.125 mg PO BID 10/19/14 Ergocalciferol [Vitamin D] 50,000 unit PO QWEEK 10/19/14 Furosemide [Lasix] 1.5 tab PO DAILY 10/19/14 Gabapentin [Neurontin] 300 mg PO BID PRN PRN 10/19/14 Levothyroxine [Synthroid] 25 mcg PO DAILY 10/19/14 [place]-3S/Dha/Epa/Fish Oil/D3 [Fish 1 each PO DAILY 10/19/14 [place]-7-Vit D Softgel] Potassium Chloride [Klor-Con 10] 10 meq PO DAILY 10/19/14 Spironolactone [Aldactone] 25 mg PO BID 10/19/14 Oxycodone HCl/Acetaminophen 1 tablet PO Q4H PRN PRN #12 tablet 06/14/15 [Percocet 5/325] Alendronate Sodium [Fosamax] 70 mg PO Q7D@0700 04/29/17 Aspirin [Aspirin, Baby] 81 mg PO DAILY@0800 04/29/17 Ciclopirox 1 applicatio TOPICAL QHS 04/29/17 Hydrocodone Bitart/Apap 5-325 1 tablet PO Q6H PRN PRN 04/29/17 [[place] 5MG-325MG] Multivitamins,Therapeutic 1 tablet PO DAILY 04/29/17 [Multivitamin] Ubidecarenone [Coenzyme Q-10] 200 mg PO DAILY 04/29/17 Lisinopril 2.5 mg PO DAILY 07/31/18 Surgical History: hysterectomy, mastectomy Lives: With Family Smoking Status: Former smoker Alcohol: None - *Family History Maternal History Items: Heart Disease, Hypertension Review of Systems Constitutional: Reports: Weakness, Fatigue Eyes: Denies: Blurred vision, Double vision HEENT: Denies: Head Aches, Sinus Congestion, Sinus Drainage Cardiovascular: Denies: Chest Pain, Palpitations Respiratory: Reports: Cough, Shortness of Breath. Denies: Sputum production Gastrointestinal: Denies: Abdominal Pain, Nausea, Vomiting Genitourinary: Denies: Dysuria, Frequency Musculoskeletal: Denies: Joint Pain, Joint Tenderness Skin: Reports: Rash Neurological: Denies: Numbness, Tingling, Focal weakness Psychiatric: Denies: Anxiety, Depression, Homicidal Ideations, Suicidal Ideations Hematologic/ Lymphatic: Denies: Easy Bruising, Easy Bleeding Patient Problems: Active and Suspected Problems Severe sepsis (Acute) Objective: The patient's most recent lab work, culture data and imaging studies have all been personally reviewed. Blood cultures dated July 31 were positive for gram-positive cocci in chains. - Physical Exam General: Alert, Cooperative, No apparent distress, - - Sitting upright in bed with nasal cannula in place. HEENT: Atraumatic, PERRLA, Normocephalic Oral: No Gingival or Mucosal Lesions/ Ulcerations Neck: Supple, No Nodes, Trachea Midline Lungs: - - Diminished air movement in the posterior lung bases. Otherwise clear anteriorly. Cardiovascular: Regular rate, Regular Rhythm, Normal S1, Normal S2, No murmurs Abdomen: Bowel Sounds Present, Soft, Non Tender Extremities: No clubbing, No cyanosis, - - Bilateral lower externally pitting edema. Skin: - - Distal left lower extremity cellulitis. No open wound or drainage noted. Musculoskeletal: No Muscle Wasting Lymphatic: No Cervical, Supraclavicular, or Inguinal Adenopathy Neurological: Cranial nerves II-XII grossly intact, Neuro grossly intact Psych/Mental Status: Normal Affect, Appropriate Vital Signs Temp Pulse Resp BP Pulse Ox 36.6 C 68 19 H 104/61 100 08/01/18 04:00 08/01/18 06:00 08/01/18 06:00 08/01/18 06:00 08/01/18 06:00 Oxygen Flow Rate (L/min) 2 Oxygen Delivery Method Nasal Cannula Weight: 211 lb 6.773 oz Body Mass Index (BMI) 30.4 Intake and Output for Last 24 Hours 07/30/18 07/31/18 08/01/18 23:59 23:59 23:59 Intake Total 1690 / 1690 3931 / 3931 Output Total 250 / 250 600 / 600 Balance 1440 / 1440 3331 / 3331 Microbiology Past 72 Hours 07/31/18 18:50 Blood Culture - Preliminary Blood Culture (Wb) #2 - Left Wrist 07/31/18 18:45 Blood Culture - Preliminary Blood Culture (Wb) #2 - Arm Left 07/31/18 10:07 Blood Culture - Preliminary Blood Culture (Wb) - Left Hand 07/31/18 10:05 Blood Culture - Preliminary Blood Culture (Wb) - Anticubital Left Laboratory Tests Past 24 Hrs 07/31/18 07/31/18 07/31/18 10:05 10:05 10:05 WBC 14.3 H RBC 4.29 Hgb 13.4 Hct 39.6 MCV 92.3 MCH 31.2 MCHC 33.8 RDW 13.7 RDW Differential 45.9 H Plt Count 163 MPV 9.2 Immature Gran % (Auto) 0.300 Neut % (Auto) 93.4 H Lymph % (Auto) 3.0 L [place] % (Auto) 3.2 Eos % (Auto) 0.0 Baso % (Auto) 0.1 Absolute Neuts (auto) 13.4 H Absolute Lymphs (auto) 0.43 L Total Counted Not Reportable Differential Comment SCANNED Specimen Type Sample Site pH Bicarbonate Actual POC Total CO2 Base Excess O2 Saturation ABG pCO2 ABG pO2 Adeel Test O2 Delivery Device Liter Flow Blood Gas Notified Whom Blood Gas Notified Time Sodium 131 L Potassium 3.9 Chloride 94 L Carbon Dioxide 27.0 Anion Gap 10 BUN 30 H Creatinine 1.36 H Estim Creat Clear Calc 31.40 Est GFR (MDRD) Af Amer 48 L Est GFR (MDRD) Non-Af 40 L BUN/Creatinine Ratio 22.1 H Glucose 164 H Serum Osmolality Lactic Acid 2.3 H Calcium 9.0 Total Bilirubin 1.40 H Direct Bilirubin 0.36 H AST 31 ALT 33 Alkaline Phosphatase 61 B-Natriuretic Peptide Total Protein 7.2 Albumin 3.4 Globulin 3.8 Urine Color Urine Clarity Urine pH Ur Specific [place] Urine Protein Urine Glucose (UA) Urine Ketones Urine Occult Blood Urine Nitrite Urine Bilirubin Urine Urobilinogen Ur Leukocyte Esterase Urine RBC Urine WBC Ur Squamous Epith Cells Urine Bacteria Hyaline Casts Urine Mucus 07/31/18 07/31/18 07/31/18 10:05 10:35 14:30 WBC RBC Hgb Hct MCV MCH MCHC RDW RDW Differential Plt Count MPV Immature Gran % (Auto) Neut % (Auto) Lymph % (Auto) [place] % (Auto) Eos % (Auto) Baso % (Auto) Absolute Neuts (auto) Absolute Lymphs (auto) Total Counted Differential Comment Specimen Type ART Sample Site L Radial pH 7.47 H Bicarbonate Actual 25.4 POC Total CO2 26 Base Excess 2 O2 Saturation 99 ABG pCO2 34.5 L ABG pO2 114 H Adeel Test POS O2 Delivery Device Nasal Can Liter Flow 3.0 Blood Gas Notified Whom ED MD Blood Gas Notified Time 1025 Sodium Potassium Chloride Carbon Dioxide Anion Gap BUN Creatinine Estim Creat Clear Calc Est GFR (MDRD) Af Amer Est GFR (MDRD) Non-Af BUN/Creatinine Ratio Glucose Serum Osmolality Lactic Acid 2.4 H Calcium Total Bilirubin Direct Bilirubin AST ALT Alkaline Phosphatase B-Natriuretic Peptide 301.8 H Total Protein Albumin Globulin Urine Color Urine Clarity Urine pH Ur Specific [place] Urine Protein Urine Glucose (UA) Urine Ketones Urine Occult Blood Urine Nitrite Urine Bilirubin Urine Urobilinogen Ur Leukocyte Esterase Urine RBC Urine WBC Ur Squamous Epith Cells Urine Bacteria Hyaline Casts Urine Mucus 07/31/18 07/31/18 07/31/18 16:15 18:45 18:50 WBC RBC Hgb Hct MCV MCH MCHC RDW RDW Differential Plt Count MPV Immature Gran % (Auto) Neut % (Auto) Lymph % (Auto) [place] % (Auto) Eos % (Auto) Baso % (Auto) Absolute Neuts (auto) Absolute Lymphs (auto) Total Counted Differential Comment Specimen Type Sample Site pH Bicarbonate Actual POC Total CO2 Base Excess O2 Saturation ABG pCO2 ABG pO2 Adeel Test O2 Delivery Device Liter Flow Blood Gas Notified Whom Blood Gas Notified Time Sodium Potassium Chloride Carbon Dioxide Anion Gap BUN Creatinine Estim Creat Clear Calc Est GFR (MDRD) Af Amer Est GFR (MDRD) Non-Af BUN/Creatinine Ratio Glucose Serum Osmolality 282 Lactic Acid 1.5 Calcium Total Bilirubin Direct Bilirubin AST ALT Alkaline Phosphatase B-Natriuretic Peptide Total Protein Albumin Globulin Urine Color Yellow Urine Clarity Clear Urine pH 5.0 Ur Specific [place] 1.015 Urine Protein Negative Urine Glucose (UA) Normal Urine Ketones Negative Urine Occult Blood 10 H Urine Nitrite Negative Urine Bilirubin Negative Urine Urobilinogen Normal Ur Leukocyte Esterase 100 H Urine RBC 0 SEEN Urine WBC 0-5 SEEN Ur Squamous Epith Cells 0 SEEN Urine Bacteria 1+ Hyaline Casts 0-5 SEEN Urine Mucus 0 SEEN 08/01/18 08/01/18 04:25 04:25 WBC Pending RBC Pending Hgb Pending Hct Pending MCV Pending MCH Pending MCHC Pending RDW Pending RDW Differential Pending Plt Count Pending MPV Immature Gran % (Auto) Neut % (Auto) Pending Lymph % (Auto) [place] % (Auto) Eos % (Auto) Baso % (Auto) Absolute Neuts (auto) Pending Absolute Lymphs (auto) Total Counted Pending Differential Comment Specimen Type Sample Site pH Bicarbonate Actual POC Total CO2 Base Excess O2 Saturation ABG pCO2 ABG pO2 Adeel Test O2 Delivery Device Liter Flow Blood Gas Notified Whom Blood Gas Notified Time Sodium 137 Potassium 3.6 Chloride 103 Carbon Dioxide 24.0 Anion Gap 10 BUN 33 H Creatinine 1.06 H Estim Creat Clear Calc 44.97 Est GFR (MDRD) Af Amer 64 Est GFR (MDRD) Non-Af 53 L BUN/Creatinine Ratio 31.1 H Glucose 106 Serum Osmolality Lactic Acid Calcium 7.4 L Total Bilirubin Direct Bilirubin AST ALT Alkaline Phosphatase B-Natriuretic Peptide Total Protein Albumin Globulin Urine Color Urine Clarity Urine pH Ur Specific [place] Urine Protein Urine Glucose (UA) Urine Ketones Urine Occult Blood Urine Nitrite Urine Bilirubin Urine Urobilinogen Ur Leukocyte Esterase Urine RBC Urine WBC Ur Squamous Epith Cells Urine Bacteria Hyaline Casts Urine Mucus Clinical Impression(s) from Imaging Studies Chest X-Ray 07/31/18 09:48 IMPRESSION: Moderate enlargement of the cardiac silhouette with vascular congestion. There is no obvious pleural effusion. Minimal bibasilar atelectasis. Electronically Signed: Whitney Merino MD at 10:55 EST Tel Direct: [phone], Service support , Assessment/Plan Active and Suspected Problems Severe sepsis (Acute) RECOMMENDATIONS: 1. Continue broad-spectrum antibiotics, pending finalized culture results. 2. Hold antihypertensives for now. 3. Okay from my perspective to discontinue vancomycin. 4. Continue Lovenox 5. Okay for transfer out of the intensive care unit IMPRESSIONS: 1. Severe sepsis secondary to lower extremity cellulitis and Streptococcus bacteremia The patient has responded appropriately to IV volume resuscitation. She is now afebrile and hemodynamically stable. The patient never required initiation of vasopressor support. Continue current supportive measures. 2. Acute kidney injury Likely prerenal in etiology and related to #1. Anticipate improvement with volume expansion. Continue to monitor urine output. No indication for renal replacement therapy at this time. 3. Questionable CHF Echocardiogram is currently pending. Recommend holding diuretics and antihypertensives at this time. These medications can be restarted once hemodynamic stability has been ensured. 4. History of metastatic breast cancer/hypothyroidism/hyperlipidemia/advanced age Complicates care, management, recovery and prognosis. Okay to continue baseline home medications from my perspective. Physical therapy to evaluate patient. This note was generated with [employer] software. It may contain incorrect words, spelling, and punctuation that were not noted in checking the note before signing. Code Visit Inpatient E&M: 48211 Init Hosp L3
[2018-08-01 07:41] LABS: Absolute Lymphocyte Count 0.51 X10^3/ul (0.83-4.51); Absolute Neutrophil Count 6.7 X10^3/uL (2.0-7.7); Eosinophil# 0.02 X10^3/uL; Eosinophils% 0.3 % (0-5); Hematocrit 31.2 % (37-47); Hemoglobin 10.3 g/dl (12.0-15.0); Lymphocyte # 0.51 X10^3/ul (4.0); Lymphocyte % 6.5 % (19-41); Mean Corpuscular Hgb 30.7 pg (27.0-32.0); Mean Corpuscular Volume 93.1 fL (81-99); Mean Platelet Vol. 9.4 fl (6.2-12.0); Monocyte# 0.52 X10^3/uL; Monocyte% 6.7 % (0-10); Neutrophil # 6.74 X10^3/uL (2.7-7.7); Neutrophil % 86.4 % (47-70); Platelet Count 114 K/mm3 (150-450); RBC Distribution Width CV 13.9 % (11.6-14.6); RBC Distribution Width SD 47.3 fl (35.1-43.9); Red Blood Count 3.35 M/mm3 (4.2-5.4); White Blood Count 7.8 K/mm3 (4.4-11.0)
[2018-08-01 07:50] LABS: Differential Indicated SCAN CRITERIA MET; POSITIVE COUNT NO; POSITIVE DIFFERENTIAL YES; POSITIVE MORPHOLOGY NO
--- NOTE | 2018-08-01 08:59 | NURSING ---
report called transferred to room 316 per bed with belongings son present
--- NOTE | 2018-08-01 09:22 | CASEMGMT ---
GABRIELE CM Note: Pt has transferred to MS3/tele. Call to [facility] transfer line to notify that per Dr. Martell, pt can go to MS tele instead of ICU. Per [facility] transfer rep, Bell, pt would need to be on MS unit @ [facility] 24 hours prior [facility] assigning a MS tele bed. Per Bell, if bed becomes available today, they will transfer her to [facility] to an ICU bed. They requested we call back tomorrow if transfer has not occurred and let them know pt has been on MS tele x 24 hours and can now transfer to MS bed instead of ICU bed. GABRIELE Oneill CM updated. Flavio ALCANTARN RN ACM
[2018-08-01] MEDS: Calcitriol 0.25 MCG Capsule PO (09:51)
[2018-08-01] MEDS: Enoxaparin 40 MG/0.4 ML Syringe SC (09:51)
[2018-08-01] MEDS: Aspirin 81 MG TAB.CHEW PO (09:51)
[2018-08-01] MEDS: HYDROcodone Bitartrate/Apap 5/325 Tablet PO ×2 (09:52→16:32)
--- NOTE | 2018-08-01 10:44 | PCM.PN.HOSP ---
Patient Problems: Active and Suspected Problems Severe sepsis (Acute) Subjective: Seen and examined. Talk to the son near the bedside and clinical course and management plan was discussed. Patient is immunocompromised with history of metastatic breast cancer status post bilateral mastectomy. Patient has left lower extremity cellulitis and was admitted in ICU for severe sepsis. Vitals/I&O's: Vital Signs Temp Pulse Resp BP Pulse Ox 97.6 F L 76 18 111/52 L 94 08/01/18 09:45 08/01/18 09:45 08/01/18 09:45 08/01/18 09:45 08/01/18 09:45 Oxygen Flow Rate (L/min) 2 Oxygen Delivery Method Room Air Weight: 211 lb 6.773 oz Body Mass Index (BMI) 30.4 Intake and Output for Last 24 Hours 07/30/18 07/31/18 08/01/18 23:59 23:59 23:59 Intake Total 1690 / 1690 3931 / 3931 Output Total 250 / 250 600 / 600 Balance 1440 / 1440 3331 / 3331 General: Alert, Oriented x3, Cooperative HEENT: Atraumatic, PERRLA, EOMI, Normocephalic Neck: Supple, No JVD, Negative Carotid Bruits Lungs: No wheeze, No rales, Diminished - In bilateral lung bases, Rhonchi Cardiovascular: Regular rate, Regular Rhythm, Normal S1, Normal S2, No murmurs Abdomen: Bowel Sounds Present, Soft, Non Tender, Non-Distended Extremities: No edema, Capillary Refill Less than 3 Seconds Skin: Rash Present - Cellulitis in left lower extremity from ankle up to the groin level. Tenderness with muscle induration Musculoskeletal: No Tenderness to Palpation of Joints or Extremities, Arthritic Changes, Muscle Wasting Neurological: Cranial nerves II-XII grossly intact Psych/Mental Status: Normal Affect, Appropriate Microbiology Past 72 Hours 07/31/18 10:07 Blood Culture (Wb) - Left Hand Bacteria Detection (PCR) - Final 07/31/18 10:07 Blood Culture (Wb) - Left Hand Blood Culture - Preliminary 07/31/18 18:50 Blood Culture (Wb) #2 - Left Wrist Blood Culture - Preliminary 07/31/18 18:45 Blood Culture (Wb) #2 - Arm Left Blood Culture - Preliminary 07/31/18 10:05 Blood Culture (Wb) - Anticubital Left Blood Culture - Preliminary Laboratory Results 07/31/18 10:05: Lactic Acid 2.3 H 07/31/18 10:05: B-Natriuretic Peptide 301.8 H 07/31/18 14:30: Lactic Acid 2.4 H 07/31/18 16:15: Urine Color Yellow, Urine Clarity Clear, Urine pH 5.0, Ur Specific [place] 1.015, Urine Protein Negative, Urine Glucose (UA) Normal, Urine Ketones Negative, Urine Occult Blood 10 H, Urine Nitrite Negative, Urine Bilirubin Negative, Urine Urobilinogen Normal, Ur Leukocyte Esterase 100 H, Urine RBC 0 SEEN, Urine WBC 0-5 SEEN, Ur Squamous Epith Cells 0 SEEN, Urine Bacteria 1+, Hyaline Casts 0-5 SEEN, Urine Mucus 0 SEEN 07/31/18 18:45: Serum Osmolality 282 07/31/18 18:50: Lactic Acid 1.5 08/01/18 04:25: Sodium 137, Potassium 3.6, Chloride 103, Carbon Dioxide 24.0, Anion Gap 10, BUN 33 H, Creatinine 1.06 H, Estim Creat Clear Calc 44.97, Est GFR (MDRD) Af Amer 64, Est GFR (MDRD) Non-Af 53 L, BUN/Creatinine Ratio 31.1 H, Glucose 106, Calcium 7.4 L 08/01/18 04:25: WBC 7.8, RBC 3.35 L, Hgb 10.3 L, Hct 31.2 L, MCV 93.1, MCH 30.7, MCHC 33.0, RDW 13.9, RDW Differential 47.3 H, Plt Count 114 L, MPV 9.4, Immature Gran % (Auto) 0.100, Neut % (Auto) 86.4 H, Lymph % (Auto) 6.5 L, Crane % (Auto) 6.7, Eos % (Auto) 0.3, Baso % (Auto) 0.0, Absolute Neuts (auto) 6.7, Absolute Lymphs (auto) 0.51 L, Total Counted Not Reportable, Differential Comment COMMENT Current Medications Acetaminophen (Tylenol) 650 mg PO Q6H PRN PRN PRN Reason: PAIN Last Admin: 07/31/18 22:51 Dose: 650 mg Hydrocodone Bitart/Acetaminophen (Welcome 5mg-325mg) 1 tablet PO Q6H PRN PRN PRN Reason: PAIN Last Admin: 08/01/18 09:52 Dose: 1 tablet Albuterol Sulfate (Ventolin Aerosols) 2.5 mg INHALATION Q4H PRN PRN PRN Reason: DYSPNEA Aspirin (Aspirin, Baby) 81 mg PO DAILY@0800 [facility] Last Admin: 08/01/18 09:51 Dose: 81 mg Atorvastatin Calcium (Lipitor) 10 mg PO DAILY@2200 [facility] Last Admin: 07/31/18 22:51 Dose: 10 mg Calcitriol (Rocaltrol) 0.25 mcg PO DAILY [facility] Last Admin: 08/01/18 09:51 Dose: 0.25 mcg Clotrimazole (Lotrimin) 1 applicatio TOPICAL QHS [facility] Last Admin: 08/01/18 02:46 Dose: 1 applicatio Enoxaparin Sodium (Lovenox) 40 mg SC DAILY@1000 [facility] Last Admin: 08/01/18 09:51 Dose: 40 mg Ergocalciferol (Vitamin D) 50,000 unit PO QWEEK [facility] Sodium Chloride () 250 mls @ 15 mls/hr IV .[id number] PRN PRN Reason: SALINE FLUSH Ceftriaxone Sodium 2 gm/ (Sodium Chloride) 50 mls @ 100 mls/hr IV Q24 [facility] Levothyroxine Sodium (Synthroid) 25 mcg PO DAILY@0600 [facility] Last Admin: 08/01/18 05:25 Dose: 25 mcg Magnesium Hydroxide (Milk Of Magnesia) 30 ml PO DAILY PRN PRN PRN Reason: Constipation Nystatin (Mycostatin Powder) 1 applic TOPICAL BID [facility]; Protocol Last Admin: 07/31/18 22:52 Dose: Not Given Potassium Chloride (K-Dur) 10 meq PO DAILYCM [facility] Last Admin: 08/01/18 09:51 Dose: 10 meq Sodium Chloride () 5 - 15 ml IV UD PRN PRN Reason: SALINE FLUSH Medical Necessity - Tobacco Use Smoking Status: Former smoker Assessment/Plan All Active Problems Severe sepsis (Acute) This is a 78-year-old female who was admitted in ICU initially for left lower extremity pain and redness consistent with cellulitis along with cough and nasal congestion consistent with severe sepsis secondary to left lower extremity cellulitis injected per request bacteremia. Patient has history of metastatic breast cancer status post bilateral mastectomy and is immunocompromised. Lactic acid was 2.4 1. Severe sepsis secondary to left lower extremity cellulitis and Streptococcus bacteremia; not strep pneumoniae and UTI: Patient deemed hemodynamically stable and seen by our senior animator. Patient is transferred to regular floor on telemetry. Patient initially started on IV Zosyn which is narrowed down to ceftriaxone based on urine culture report of gram-negative rods more than 100,000. Is been consulted for further opinion regarding strep group G bacteremia. I guess it is coming from cellulitis from his skin. Discussed with the pharmacist and ceftriaxone most likely cover strep group G. Not enough clinical evidence/literature whether it is colonization or pathologic or evidence of clinical benefit of antibiotic. 2. Acute kidney injury, most likely from dehydration: Creatinine improved to 1.06. Lactic acid elevated 2.3, 2.4 3. 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 Mild to moderate global hypokinesis. Mild TR, RVSP 35 Hg. Mild MR. Antihypertensive medications are on hold because of low blood pressure, currently recovering. 4. Metastatic breast cancer status post bilateral mastectomy: Last chemotherapy was past . She gets her cancer care in [facility]. 5. Hyponatremia, Hypotonic hypovolemic: Hyponatremia is corrected Current. Sodium is 137 from 131. Serum osmolality 282. Other comorbidities include hypothyroidism on Synthroid: DVT prophylaxis: On enoxaparin Discussed with the son near the bedside and updated about the diagnosis and management. Patient gets all cancer management including therefore son wanted transferred to [facility] and nighttime hospitalist Dr. Wei Loza transfer line and patient is accepted waiting for bed but in the meantime patient's son agree with management and care here. Active Medications Acetaminophen (Tylenol) 650 mg PO Q6H PRN PRN PRN Reason: PAIN Last Admin: 07/31/18 22:51 Dose: 650 mg Hydrocodone Bitart/Acetaminophen (Welcome 5mg-325mg) 1 tablet PO Q6H PRN PRN PRN Reason: PAIN Last Admin: 08/01/18 09:52 Dose: 1 tablet Albuterol Sulfate (Ventolin Aerosols) 2.5 mg INHALATION Q4H PRN PRN PRN Reason: DYSPNEA Aspirin (Aspirin, Baby) 81 mg PO DAILY@0800 [facility] Last Admin: 08/01/18 09:51 Dose: 81 mg Atorvastatin Calcium (Lipitor) 10 mg PO DAILY@2200 [facility] Last Admin: 07/31/18 22:51 Dose: 10 mg Calcitriol (Rocaltrol) 0.25 mcg PO DAILY [facility] Last Admin: 08/01/18 09:51 Dose: 0.25 mcg Clotrimazole (Lotrimin) 1 applicatio TOPICAL QHS [facility] Last Admin: 08/01/18 02:46 Dose: 1 applicatio Enoxaparin Sodium (Lovenox) 40 mg SC DAILY@1000 [facility] Last Admin: 08/01/18 09:51 Dose: 40 mg Ergocalciferol (Vitamin D) 50,000 unit PO QWEEK [facility] Sodium Chloride () 250 mls @ 15 mls/hr IV .[id number] PRN PRN Reason: SALINE FLUSH Ceftriaxone Sodium 2 gm/ (Sodium Chloride) 50 mls @ 100 mls/hr IV Q24 [facility] Last Admin: 08/01/18 10:48 Dose: 100 mls/hr Levothyroxine Sodium (Synthroid) 25 mcg PO DAILY@0600 [facility] Last Admin: 08/01/18 05:25 Dose: 25 mcg Magnesium Hydroxide (Milk Of Magnesia) 30 ml PO DAILY PRN PRN PRN Reason: Constipation Nystatin (Mycostatin Powder) 1 applic TOPICAL BID [facility]; Protocol Last Admin: 08/01/18 11:29 Dose: 1 applicatio Potassium Chloride (K-Dur) 10 meq PO DAILYCM [facility] Last Admin: 08/01/18 09:51 Dose: 10 meq Sodium Chloride () 5 - 15 ml IV UD PRN PRN Reason: SALINE FLUSH Code Visit Inpatient E&M: 86214 [facility] Hosp L3
[2018-08-01] MEDS: Nystatin Powder 15gm Bottle 1 APPLIC TOPICAL ×2 (11:29→21:38)
[2018-08-01 13:19] LABS: M R Staph aureus DNA By PCR Negative (Negative); Probe Check PASS; Specimen Processing Control PASS
--- NOTE | 2018-08-01 18:00 | NURSING ---
pt refused venous US today because pt did not want to get back into bed. Staff attempted to educate pt on importance of study. Will attempt US again in the morning.
--- NOTE | 2018-08-01 20:37 | NURSING ---
Son called n for update on patient. Son very hard to understand on phone, slurring words.
[2018-08-01] MEDS: Atorvastatin Calcium 10 MG Tablet PO (21:35)
[2018-08-02] VITALS (10 sets, daily range): BP systolic 105–125; BP diastolic 50–77; PULSE 70–79; RESP 16–18; TEMP 36.6–37.3; O2SAT 95–99
[2018-08-02] MEDS: Levothyroxine 25 MCG TABLET PO (06:27)
[2018-08-02 06:53] LABS: Anion Gap 9 (5-15); BUN 22 mg/dL (7-18); BUN/Creat Ratio 30.9 RATIO (10-20); Calcium,Total 8.1 mg/dL (8.5-10.1); Chloride 106 mmol/L (98-107); Creatinine, Serum 0.71 mg/dL (0.55-1.02); EST Glomerular Filtration Rate 84 mL/min (>60); Est Glom Filt Rate - Afr Amer 102 mL/min (>60); Estimated Creatinine Clearance 47.67 ml/min; Glucose 101 mg/dL (74-106); Potassium 4.2 mmol/L (3.5-5.1); Sodium Level 138 mmol/L (136-145)
--- NOTE | 2018-08-02 06:56 | PN_ITS ---
Patient Problems: Active and Suspected Problems Severe sepsis (Acute) Subjective: The patient was seen and examined at the bedside this morning. Events from the last 24 hours have been reviewed. The patient is currently afebrile, hemodynamically stable and maintaining appropriate oxygen saturations on room air. No overnight issues were identified. Objective: The patient's most recent lab work, culture data and imaging studies have all been personally reviewed. Blood culture dated July 31 was positive for Streptococcus group G. Urine Gram stain revealed the presence of a gram- negative abdi. Surface echocardiogram dated August 01 revealed mild to moderate global hypokinesis of the LV with an ejection fraction of 40%. Pulmonary artery systolic pressure was estimated to be 35 mmHg. - Physical Exam General: Alert, Cooperative, No apparent distress HEENT: Atraumatic, PERRLA, Normocephalic Oral: No Gingival or Mucosal Lesions/ Ulcerations Neck: Supple, No Nodes, Trachea Midline Lungs: Normal air movement, No rhonchi, No wheeze, No rales, Diminished Cardiovascular: Regular rate, Regular Rhythm, Normal S1, Normal S2, No murmurs Abdomen: Bowel Sounds Present, Soft, Non Tender Extremities: No clubbing, No cyanosis, Edema Skin: - - Improving lower extremity cellulitis. Musculoskeletal: No Muscle Wasting Lymphatic: No Cervical, Supraclavicular, or Inguinal Adenopathy Neurological: Neuro grossly intact Psych/Mental Status: Normal Affect, Appropriate Vital Signs Temp Pulse Resp BP Pulse Ox 37.3 C H 74 18 112/50 L 95 08/02/18 03:43 08/02/18 03:43 08/02/18 03:43 08/02/18 03:43 08/02/18 03:43 Oxygen Flow Rate (L/min) 2 Oxygen Delivery Method Room Air Weight: 211 lb 6.773 oz Body Mass Index (BMI) 30.4 Intake and Output for Last 24 Hours 07/31/18 08/01/18 08/02/18 23:59 23:59 23:59 Intake Total 1690 / 1690 5448 / 5448 Output Total 250 / 250 1900 / 1900 600 / 600 Balance 1440 / 1440 3548 / 3548 -600 / -600 Microbiology Past 72 Hours 07/31/18 16:15 Streptococcus pneumoniae Antigen (M - Final Urine Catheter - Catheter 07/31/18 10:07 Bacteria Detection (PCR) - Final Blood Culture (Wb) - Left Hand Blood Culture - Preliminary Streptococcus group G 07/31/18 16:15 Urine Culture - Preliminary Urine, Catheterized Gram negative abdi 07/31/18 18:50 Blood Culture - Preliminary Blood Culture (Wb) #2 - Left Wrist 07/31/18 18:45 Blood Culture - Preliminary Blood Culture (Wb) #2 - Arm Left 07/31/18 10:05 Blood Culture - Preliminary Blood Culture (Wb) - Anticubital Left Laboratory Tests Past 24 Hrs 08/01/18 08/01/18 08/02/18 04:25 10:55 05:46 WBC 7.8 Pending RBC 3.35 L Pending Hgb 10.3 L Pending Hct 31.2 L Pending MCV 93.1 Pending MCH 30.7 Pending MCHC 33.0 Pending RDW 13.9 Pending RDW Differential 47.3 H Pending Plt Count 114 L Pending MPV 9.4 Immature Gran % (Auto) 0.100 Neut % (Auto) 86.4 H Pending Lymph % (Auto) 6.5 L [place] % (Auto) 6.7 Eos % (Auto) 0.3 Baso % (Auto) 0.0 Absolute Neuts (auto) 6.7 Pending Absolute Lymphs (auto) 0.51 L Total Counted Not Reportable Pending Differential Comment COMMENT Sodium Potassium Chloride Carbon Dioxide Anion Gap BUN Creatinine Estim Creat Clear Calc Est GFR (MDRD) Af Amer Est GFR (MDRD) Non-Af BUN/Creatinine Ratio Glucose Calcium MRSA (PCR) Negative 08/02/18 05:46 WBC RBC Hgb Hct MCV MCH MCHC RDW RDW Differential Plt Count MPV Immature Gran % (Auto) Neut % (Auto) Lymph % (Auto) [place] % (Auto) Eos % (Auto) Baso % (Auto) Absolute Neuts (auto) Absolute Lymphs (auto) Total Counted Differential Comment Sodium 138 Potassium 4.2 Chloride 106 Carbon Dioxide 23.0 Anion Gap 9 BUN 22 H Creatinine 0.71 Estim Creat Clear Calc 47.67 Est GFR (MDRD) Af Amer 102 Est GFR (MDRD) Non-Af 84 BUN/Creatinine Ratio 30.9 H Glucose 101 Calcium 8.1 L MRSA (PCR) Clinical Impression(s) from Imaging Studies Chest X-Ray 07/31/18 09:48 IMPRESSION: Moderate enlargement of the cardiac silhouette with vascular congestion. There is no obvious pleural effusion. Minimal bibasilar atelectasis. Electronically Signed: Whitney Merino MD at 10:55 EST Tel Direct: [phone], Service support , Medical Necessity - Tobacco Use Smoking Status: Former smoker Assessment/Plan All Active Problems Severe sepsis (Acute) RECOMMENDATIONS: 1. Continue antibiotics as ordered. 2. Encourage incentive spirometer use and mobilize patient as tolerated. 3. Physical therapy to evaluate patient IMPRESSIONS: 1. Severe sepsis secondary to lower extremity cellulitis, Streptococcus bacteremia and Klebsiella bacteriuria The patient has responded appropriately to IV volume resuscitation. She remains afebrile and hemodynamically stable. The patient never required initiation of vasopressor support. Continue current supportive measures with antibiotics as noted above. 2. Acute kidney injury Improved. Likely prerenal in etiology and related to #1. Creatinine has improved accordingly. No indication for renal replacement therapy at this time. 3. Chronic systolic CHF Okay from my perspective to resume outpatient cardiac medication regimen. 4. History of metastatic breast cancer/hypothyroidism/hyperlipidemia/advanced age Complicates care, management, recovery and prognosis. Okay to continue baseline home medications from my perspective. Physical therapy evaluation pending. This note was generated with [employer] dictation software. It may contain incorrect words, spelling, and punctuation that were not noted in checking the note before signing. DISPOSITION: Given the lack of ongoing ICU/pulmonary needs, will sign off. Please call with any additional questions. Code Visit Inpatient E&M: 74398 Subs Hosp L2
[2018-08-02 07:05] LABS: Absolute Lymphocyte Count 0.59 X10^3/ul (0.83-4.51); Absolute Neutrophil Count 5.6 X10^3/uL (2.0-7.7); Basophil# 0.01 X10^3/uL; Basophil% 0.1 % (0-1); Differential Indicated SCAN CRITERIA MET; Eosinophil# 0.11 X10^3/uL; Eosinophils% 1.6 % (0-5); Hematocrit 32.1 % (37-47); Hemoglobin 10.6 g/dl (12.0-15.0); Lymphocyte # 0.59 X10^3/ul (4.0); Lymphocyte % 8.7 % (19-41); Mean Corpuscular Volume 93.9 fL (81-99); Mean Platelet Vol. 9.9 fl (6.2-12.0); Monocyte# 0.49 X10^3/uL; Monocyte% 7.2 % (0-10); Neutrophil # 5.57 X10^3/uL (2.7-7.7); Neutrophil % 82.1 % (47-70); POSITIVE COUNT NO; POSITIVE DIFFERENTIAL YES; POSITIVE MORPHOLOGY NO; Platelet Count 138 K/mm3 (150-450); RBC Distribution Width CV 13.5 % (11.6-14.6); RBC Distribution Width SD 44.8 fl (35.1-43.9); Red Blood Count 3.42 M/mm3 (4.2-5.4); White Blood Count 6.8 K/mm3 (4.4-11.0)
--- NOTE | 2018-08-02 07:34 | PN_ITS ---
Patient Problems: Active and Suspected Problems Severe sepsis (Acute) Subjective: Patient improvement in pain and swelling of the left leg. Verbal report of venous Doppler shows posterior left tibial vein DVT. Discussed with ID. Agree with current IV antibiotics and clinically observation Vitals/I&O's: Vital Signs Temp Pulse Resp BP Pulse Ox 99.2 F H 74 18 112/50 L 95 08/02/18 03:43 08/02/18 03:43 08/02/18 03:43 08/02/18 03:43 08/02/18 03:43 Oxygen Flow Rate (L/min) 2 Oxygen Delivery Method Room Air Weight: 211 lb 6.773 oz Body Mass Index (BMI) 30.4 Intake and Output for Last 24 Hours 07/31/18 08/01/18 08/02/18 23:59 23:59 23:59 Intake Total 1690 / 1690 5448 / 5448 Output Total 250 / 250 1900 / 1900 600 / 600 Balance 1440 / 1440 3548 / 3548 -600 / -600 General: Alert, Oriented x3, Cooperative HEENT: Atraumatic, PERRLA, EOMI, Normocephalic Neck: Supple, No JVD, Negative Carotid Bruits Lungs: Clear to auscultation, Normal air movement, No rhonchi, No wheeze, No rales, Diminished Cardiovascular: Regular rate, Normal S1, Normal S2, No murmurs, - - AICD present 12 beats of PVCs, NSVT Abdomen: Bowel Sounds Present, Soft, Non Tender, Non-Distended Extremities: No edema, Capillary Refill Less than 3 Seconds Skin: Rash Present - Erythematous rash present over left lower extremity with swelling and induration, gradually improving Musculoskeletal: No Tenderness to Palpation of Joints or Extremities, Arthritic Changes Neurological: Cranial nerves II-XII grossly intact Psych/Mental Status: Normal Affect, Appropriate Microbiology Past 72 Hours 07/31/18 18:50 Blood Culture (Wb) #2 - Left Wrist Blood Culture - Preliminary 07/31/18 18:45 Blood Culture (Wb) #2 - Arm Left Blood Culture - Preliminary 07/31/18 10:05 Blood Culture (Wb) - Anticubital Left Blood Culture - Final Gram positive organism 07/31/18 10:07 Blood Culture (Wb) - Left Hand Bacteria Detection (PCR) - Final 07/31/18 10:07 Blood Culture (Wb) - Left Hand Blood Culture - Preliminary Streptococcus group G 07/31/18 16:15 Urine Catheter - Catheter Streptococcus pneumoniae Antigen (M - Final 07/31/18 16:15 Urine, Catheterized Urine Culture - Preliminary Gram negative abdi Laboratory Results 08/01/18 04:25: WBC 7.8, RBC 3.35 L, Hgb 10.3 L, Hct 31.2 L, MCV 93.1, MCH 30.7, MCHC 33.0, RDW 13.9, RDW Differential 47.3 H, Plt Count 114 L, MPV 9.4, Immature Gran % (Auto) 0.100, Neut % (Auto) 86.4 H, Lymph % (Auto) 6.5 L, Kay % (Auto) 6.7, Eos % (Auto) 0.3, Baso % (Auto) 0.0, Absolute Neuts (auto) 6.7, Absolute Lymphs (auto) 0.51 L, Total Counted Not Reportable, Differential Comment COMMENT 08/01/18 10:55: MRSA (PCR) Negative 08/02/18 05:46: WBC 6.8, RBC 3.42 L, Hgb 10.6 L, Hct 32.1 L, MCV 93.9, MCH 31.0, MCHC 33.0, RDW 13.5, RDW Differential 44.8 H, Plt Count 138 L, MPV 9.9, Immature Gran % (Auto) 0.300, Neut % (Auto) 82.1 H, Lymph % (Auto) 8.7 L, Kay % (Auto) 7.2, Eos % (Auto) 1.6, Baso % (Auto) 0.1, Absolute Neuts (auto) 5.6, Absolute Lymphs (auto) 0.59 L, Total Counted Not Reportable 08/02/18 05:46: Sodium 138, Potassium 4.2, Chloride 106, Carbon Dioxide 23.0, Anion Gap 9, BUN 22 H, Creatinine 0.71, Estim Creat Clear Calc 47.67, Est GFR (MDRD) Af Amer 102, Est GFR (MDRD) Non-Af 84, BUN/Creatinine Ratio 30.9 H, Glucose 101, Calcium 8.1 L Current Medications Acetaminophen (Tylenol) 650 mg PO Q6H PRN PRN PRN Reason: PAIN Last Admin: 07/31/18 22:51 Dose: 650 mg Hydrocodone Bitart/Acetaminophen (Lewellen 5mg-325mg) 1 tablet PO Q6H PRN PRN PRN Reason: PAIN Last Admin: 08/01/18 16:32 Dose: 1 tablet Albuterol Sulfate (Ventolin Aerosols) 2.5 mg INHALATION Q4H PRN PRN PRN Reason: DYSPNEA Aspirin (Aspirin, Baby) 81 mg PO DAILY@0800 [facility] Last Admin: 08/01/18 09:51 Dose: 81 mg Atorvastatin Calcium (Lipitor) 10 mg PO DAILY@2200 [facility] Last Admin: 08/01/18 21:35 Dose: 10 mg Calcitriol (Rocaltrol) 0.25 mcg PO DAILY [facility] Last Admin: 08/01/18 09:51 Dose: 0.25 mcg Clotrimazole (Lotrimin) 1 applicatio TOPICAL QHS [facility] Last Admin: 08/01/18 21:38 Dose: 1 applicatio Enoxaparin Sodium (Lovenox) 40 mg SC DAILY@1000 [facility] Last Admin: 08/01/18 09:51 Dose: 40 mg Ergocalciferol (Vitamin D) 50,000 unit PO QWEEK [facility] Sodium Chloride () 250 mls @ 15 mls/hr IV .[id number] PRN PRN Reason: SALINE FLUSH Ceftriaxone Sodium 2 gm/ (Sodium Chloride) 50 mls @ 100 mls/hr IV Q24 [facility] Last Admin: 08/01/18 10:48 Dose: 100 mls/hr Levothyroxine Sodium (Synthroid) 25 mcg PO DAILY@0600 [facility] Last Admin: 08/02/18 06:27 Dose: 25 mcg Magnesium Hydroxide (Milk Of Magnesia) 30 ml PO DAILY PRN PRN PRN Reason: Constipation Nystatin (Mycostatin Powder) 1 applic TOPICAL BID [facility]; Protocol Last Admin: 08/01/18 21:38 Dose: 1 applicatio Potassium Chloride (K-Dur) 10 meq PO DAILYCM [facility] Last Admin: 08/01/18 09:51 Dose: 10 meq Sodium Chloride () 5 - 15 ml IV UD PRN PRN Reason: SALINE FLUSH Medical Necessity - Tobacco Use Smoking Status: Former smoker Assessment/Plan All Active Problems Severe sepsis (Acute) This is a 78-year-old female who was admitted in ICU initially for left lower extremity pain and redness consistent with cellulitis along with cough and nasal congestion consistent with severe sepsis secondary to left lower extremity cellulitis injected per request bacteremia. Patient has history of metastatic breast cancer status post bilateral mastectomy and is immunocompromised, last chemo was last week. Lactic acid was 2.4 1. Severe sepsis secondary to left lower extremity cellulitis and Streptococcus bacteremia; not strep pneumoniae and UTI: Patient is hemodynamically stable and seen by our auto hauler. Patient was transferred to regular floor on telemetry. Patient initially started on IV Zosyn which is narrowed down to ceftriaxone based on urine culture report of Klebsiella pneumoniae more than 100,000, sensitive to ceftriaxone. Discussed with ID Dr. Donnelly and agree with ceftriaxone and Bactrim. Clinically observe and consider CT imaging if cellulitis or symptoms worsens. There is concern for ICD lead infection but there is no redness or tenderness around the ICD pocket but will defer the need of KEIRA on ID recommendation. 2. Acute kidney injury, most likely from dehydration: Creatinine improved to 1.06. Lactic acid elevated 2.3, 2.4 3. 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 Mild to moderate global hypokinesis. Mild TR, RVSP 35 Hg. Mild MR. Antihypertensive medications are on hold because of low blood pressure, currently recovering. 4. Metastatic breast cancer status post bilateral mastectomy: Last chemotherapy was past . She gets her cancer care in [facility]. 5. Hyponatremia, Hypotonic hypovolemic: Hyponatremia is corrected Current. Sodium is 137 from 131. Serum osmolality 282. NSVT of 12 beats: Patient calcium was 7.4 and 8.1 today. Corrected calcium is 8.5. 1 dose of calcium controlled. K4.2. Sodium 138. BMP, magnesium and phosphate ordered. Other comorbidities include hypothyroidism on Synthroid: DVT prophylaxis: On enoxaparin Discussed with the son near the bedside and updated about the diagnosis and management. Patient gets all cancer management including therefore son wanted transferred to [facility] and nighttime hospitalist Dr. Wei Loza transfer line and patient is accepted waiting for bed but in the meantime patient's son agree with management and care here. Microbiology Past 72 Hours 07/31/18 16:15 Urine, Catheterized Urine Culture - Final Klebsiella pneumoniae sp pneum 07/31/18 18:50 Blood Culture (Wb) #2 - Left Wrist Blood Culture - Preliminary 07/31/18 18:45 Blood Culture (Wb) #2 - Arm Left Blood Culture - Preliminary 07/31/18 10:05 Blood Culture (Wb) - Anticubital Left Blood Culture - Final Gram positive organism 07/31/18 10:07 Blood Culture (Wb) - Left Hand Bacteria Detection (PCR) - Final 07/31/18 10:07 Blood Culture (Wb) - Left Hand Blood Culture - Preliminary Streptococcus group G 07/31/18 16:15 Urine Catheter - Catheter Streptococcus pneumoniae Antigen (M - Final Laboratory Results 08/01/18 10:55: MRSA (PCR) Negative 08/02/18 05:46: WBC 6.8, RBC 3.42 L, Hgb 10.6 L, Hct 32.1 L, MCV 93.9, MCH 31.0, MCHC 33.0, RDW 13.5, RDW Differential 44.8 H, Plt Count 138 L, MPV 9.9, Immature Gran % (Auto) 0.300, Neut % (Auto) 82.1 H, Lymph % (Auto) 8.7 L, Kay % (Auto) 7.2, Eos % (Auto) 1.6, Baso % (Auto) 0.1, Absolute Neuts (auto) 5.6, Absolute Lymphs (auto) 0.59 L, Total Counted Not Reportable 08/02/18 05:46: Sodium 138, Potassium 4.2, Chloride 106, Carbon Dioxide 23.0, Anion Gap 9, BUN 22 H, Creatinine 0.71, Estim Creat Clear Calc 47.67, Est GFR (MDRD) Af Amer 102, Est GFR (MDRD) Non-Af 84, BUN/Creatinine Ratio 30.9 H, Glucose 101, Calcium 8.1 L Active Medications Acetaminophen (Tylenol) 650 mg PO Q6H PRN PRN PRN Reason: PAIN Last Admin: 07/31/18 22:51 Dose: 650 mg Hydrocodone Bitart/Acetaminophen (Lewellen 5mg-325mg) 1 tablet PO Q6H PRN PRN PRN Reason: PAIN Last Admin: 08/02/18 10:07 Dose: 1 tablet Albuterol Sulfate (Ventolin Aerosols) 2.5 mg INHALATION Q4H PRN PRN PRN Reason: DYSPNEA Aspirin (Aspirin, Baby) 81 mg PO DAILY@0800 [facility] Last Admin: 08/02/18 10:08 Dose: 81 mg Atorvastatin Calcium (Lipitor) 10 mg PO DAILY@2200 [facility] Last Admin: 08/01/18 21:35 Dose: 10 mg Calcitriol (Rocaltrol) 0.25 mcg PO DAILY [facility] Last Admin: 08/02/18 10:09 Dose: 0.25 mcg Clotrimazole (Lotrimin) 1 applicatio TOPICAL QHS [facility] Last Admin: 08/01/18 21:38 Dose: 1 applicatio Enoxaparin Sodium (Lovenox) 40 mg SC DAILY@1000 [facility] Last Admin: 08/02/18 11:03 Dose: 40 mg Ergocalciferol (Vitamin D) 50,000 unit PO QWEEK [facility] Sodium Chloride () 250 mls @ 15 mls/hr IV .[id number] PRN PRN Reason: SALINE FLUSH Ceftriaxone Sodium 2 gm/ (Sodium Chloride) 50 mls @ 100 mls/hr IV Q24 [facility] Last Admin: 08/02/18 10:17 Dose: 100 mls/hr Calcium Gluconate 1 gm/ (Dextrose) 60 mls @ 60 mls/hr IV X1 ONE Stop: 08/02/18 13:36 Levothyroxine Sodium (Synthroid) 25 mcg PO DAILY@0600 [facility] Last Admin: 08/02/18 06:27 Dose: 25 mcg Magnesium Hydroxide (Milk Of Magnesia) 30 ml PO DAILY PRN PRN PRN Reason: Constipation Nystatin (Mycostatin Powder) 1 applic TOPICAL BID [facility]; Protocol Last Admin: 08/01/18 21:38 Dose: 1 applicatio Potassium Chloride (K-Dur) 10 meq PO DAILYCM [facility] Last Admin: 08/02/18 10:08 Dose: 10 meq Sodium Chloride () 5 - 15 ml IV UD PRN PRN Reason: SALINE FLUSH Last Admin: 08/02/18 10:09 Dose: 10 ml Code Visit Inpatient E&M: [id number] [facility] Hosp L3
[2018-08-02] MEDS: HYDROcodone Bitartrate/Apap 5/325 Tablet PO (10:07)
[2018-08-02] MEDS: Aspirin 81 MG TAB.CHEW PO (10:08)
[2018-08-02] MEDS: Calcitriol 0.25 MCG Capsule PO (10:09)
[2018-08-02] MEDS: 0.9% NaCl Peripheral Flush Adult/Peds IV ×2 (10:09→14:16)
--- NOTE | 2018-08-02 10:16 | CASEMGMT ---
RN CM Assessment. Presentation: LLL redness and swelling, IRCKY, sepsis. Intro role of CM to patient and her son. Pt is irritable, agreed to participate in president & ceo, but short with answers. PT/OT evaluations ordered, but were deferred due to transfer to Tertiary Care. This has now been cancelled. RN CM called to PT-they will see pt this am and complete evaluations. PCP: Dr. Mcfadden Pharmacy: [facility] LNOK: SonRhonda Living arrangements: one story. pt states she is independent, I don't need or want any help. States she does self care, makes own meals. Denies requiring any assist with these prior to admission. Will need to review PT/OT evaluations to confirm current activity level Transportation: son drives DME: [facility] [place] Plan: anticipate home on discharge pending PT/OT evaluations. Pt is not agreeable to Home Health. Per nurse, left leg is wrapped. Pt/son will need teaching on any dressing changes and script for supplies. Flavio ALCANTARN RN ACM
--- NOTE | 2018-08-02 10:28 | CT_ITS ---
STUDY: CT LEFT LOWER LEG WITHOUT CONTRAST REASON FOR EXAM: Female, 78 years old. Left lower leg redness and swelling x 1 month. History of breast cancer. RADIATION DOSAGE (If Supplied By Facility): CTDIvol = ( ) mGy, DLP = ( ) mGycm TECHNIQUE: Transaxial CT imaging of the knee was performed. Coronal and sagittal images were reformatted. Individualized dose optimization techniques were used for this CT. COMPARISON: None. FINDINGS: Mild periarticular degenerative spurring as well as mild subarticular sclerosis of the medial femoral condyle. Mild anterior periarticular spurring of the medial tibial plateau. There is moderate to moderately severe narrowing of the articular joint space of the medial knee compartment. Mild anterior and posterior periarticular spurring of the lateral femoral condyle. Normal lateral tibial plateau. There is preservation of the articular joint space of the lateral knee compartment. Normal proximal tibiofibular articulation. There is periarticular spurring at the base and apex of the patella as well as cortical spurring at the patellar insertion of the quadriceps tendon. Moderate narrowing of the patellofemoral joint space, most prominent laterally. Normal tibiotalar articulation and talar dome. There is an enthesophyte involving the posterior superior calcaneus at the site of insertion of the Achilles tendon. There is a plantar calcaneal spur. Normal talus, navicular and cuboid tarsal bones. Normal subtalar, talonavicular and calcaneocuboid articulations. Normal navicular-cuneiform, cuneiform tarsal bones and intercuneiform articulations. Normal tarsometatarsal articulations and visualized metatarsi. There is no joint effusion. No periosteal, cortical or cancellous marrow abnormality. There is no demonstrated fracture. The quadriceps tendon is grossly normal. The patellar tendon is grossly normal. Normal Hoffa's fat pad. There is mild superficial soft tissue swelling in the lateral aspect of the calf, as well as superficial soft tissue swelling and cutaneous thickening in the mid to distal third of the lower leg as well as the ankle. Normal anterior, lateral, and posterior calf compartments, with normal muscles, crural fascia and intermuscular septa. CT/Extremity Lower without Contra IMPRESSION: 1. Degenerative changes at the knee as well as Achilles and plantar spurring of the calcaneus. No acute osseous abnormality. 2. Superficial soft tissue swelling in the lower leg and ankle, as noted, which may reflect edema or mild cellulitis. Electronically Signed: Brian Francisco MD at 15:41 EST , Service support ,
--- NOTE | 2018-08-02 10:32 | PCM.PN.HOSP ---
Patient Problems: Active and Suspected Problems Severe sepsis (Acute) Subjective: Patient improvement in pain and swelling of the left leg. Verbal report of venous Doppler shows posterior left tibial vein DVT. Discussed with ID. Agree with current IV antibiotics and clinically observation Vitals/I&O's: Vital Signs Temp Pulse Resp BP Pulse Ox 99.2 F H 74 18 112/50 L 95 08/02/18 03:43 08/02/18 03:43 08/02/18 03:43 08/02/18 03:43 08/02/18 03:43 Oxygen Flow Rate (L/min) 2 Oxygen Delivery Method Room Air Weight: 211 lb 6.773 oz Body Mass Index (BMI) 30.4 Intake and Output for Last 24 Hours 07/31/18 08/01/18 08/02/18 23:59 23:59 23:59 Intake Total 1690 / 1690 5448 / 5448 Output Total 250 / 250 1900 / 1900 600 / 600 Balance 1440 / 1440 3548 / 3548 -600 / -600 General: Alert, Oriented x3, Cooperative HEENT: Atraumatic, PERRLA, EOMI, Normocephalic Neck: Supple, No JVD, Negative Carotid Bruits Lungs: Clear to auscultation, Normal air movement, No rhonchi, No wheeze, No rales, Diminished Cardiovascular: Regular rate, Normal S1, Normal S2, No murmurs, - - AICD present 12 beats of PVCs, NSVT Abdomen: Bowel Sounds Present, Soft, Non Tender, Non-Distended Extremities: No edema, Capillary Refill Less than 3 Seconds Skin: Rash Present - Erythematous rash present over left lower extremity with swelling and induration, gradually improving Musculoskeletal: No Tenderness to Palpation of Joints or Extremities, Arthritic Changes Neurological: Cranial nerves II-XII grossly intact Psych/Mental Status: Normal Affect, Appropriate Microbiology Past 72 Hours 07/31/18 18:50 Blood Culture (Wb) #2 - Left Wrist Blood Culture - Preliminary 07/31/18 18:45 Blood Culture (Wb) #2 - Arm Left Blood Culture - Preliminary 07/31/18 10:05 Blood Culture (Wb) - Anticubital Left Blood Culture - Final Gram positive organism 07/31/18 10:07 Blood Culture (Wb) - Left Hand Bacteria Detection (PCR) - Final 07/31/18 10:07 Blood Culture (Wb) - Left Hand Blood Culture - Preliminary Streptococcus group G 07/31/18 16:15 Urine Catheter - Catheter Streptococcus pneumoniae Antigen (M - Final 07/31/18 16:15 Urine, Catheterized Urine Culture - Preliminary Gram negative abdi Laboratory Results 08/01/18 04:25: WBC 7.8, RBC 3.35 L, Hgb 10.3 L, Hct 31.2 L, MCV 93.1, MCH 30.7, MCHC 33.0, RDW 13.9, RDW Differential 47.3 H, Plt Count 114 L, MPV 9.4, Immature Gran % (Auto) 0.100, Neut % (Auto) 86.4 H, Lymph % (Auto) 6.5 L, [place] % (Auto) 6.7, Eos % (Auto) 0.3, Baso % (Auto) 0.0, Absolute Neuts (auto) 6.7, Absolute Lymphs (auto) 0.51 L, Total Counted Not Reportable, Differential Comment COMMENT 08/01/18 10:55: MRSA (PCR) Negative 08/02/18 05:46: WBC 6.8, RBC 3.42 L, Hgb 10.6 L, Hct 32.1 L, MCV 93.9, MCH 31.0, MCHC 33.0, RDW 13.5, RDW Differential 44.8 H, Plt Count 138 L, MPV 9.9, Immature Gran % (Auto) 0.300, Neut % (Auto) 82.1 H, Lymph % (Auto) 8.7 L, [place] % (Auto) 7.2, Eos % (Auto) 1.6, Baso % (Auto) 0.1, Absolute Neuts (auto) 5.6, Absolute Lymphs (auto) 0.59 L, Total Counted Not Reportable 08/02/18 05:46: Sodium 138, Potassium 4.2, Chloride 106, Carbon Dioxide 23.0, Anion Gap 9, BUN 22 H, Creatinine 0.71, Estim Creat Clear Calc 47.67, Est GFR (MDRD) Af Amer 102, Est GFR (MDRD) Non-Af 84, BUN/Creatinine Ratio 30.9 H, Glucose 101, Calcium 8.1 L Current Medications Acetaminophen (Tylenol) 650 mg PO Q6H PRN PRN PRN Reason: PAIN Last Admin: 07/31/18 22:51 Dose: 650 mg Hydrocodone Bitart/Acetaminophen ([place] 5mg-325mg) 1 tablet PO Q6H PRN PRN PRN Reason: PAIN Last Admin: 08/01/18 16:32 Dose: 1 tablet Albuterol Sulfate (Ventolin Aerosols) 2.5 mg INHALATION Q4H PRN PRN PRN Reason: DYSPNEA Aspirin (Aspirin, Baby) 81 mg PO DAILY@0800 [facility] Last Admin: 08/01/18 09:51 Dose: 81 mg Atorvastatin Calcium (Lipitor) 10 mg PO DAILY@2200 [facility] Last Admin: 08/01/18 21:35 Dose: 10 mg Calcitriol (Rocaltrol) 0.25 mcg PO DAILY [facility] Last Admin: 08/01/18 09:51 Dose: 0.25 mcg Clotrimazole (Lotrimin) 1 applicatio TOPICAL QHS [facility] Last Admin: 08/01/18 21:38 Dose: 1 applicatio Enoxaparin Sodium (Lovenox) 40 mg SC DAILY@1000 [facility] Last Admin: 08/01/18 09:51 Dose: 40 mg Ergocalciferol (Vitamin D) 50,000 unit PO QWEEK [facility] Sodium Chloride () 250 mls @ 15 mls/hr IV .[id number] PRN PRN Reason: SALINE FLUSH Ceftriaxone Sodium 2 gm/ (Sodium Chloride) 50 mls @ 100 mls/hr IV Q24 [facility] Last Admin: 08/01/18 10:48 Dose: 100 mls/hr Levothyroxine Sodium (Synthroid) 25 mcg PO DAILY@0600 [facility] Last Admin: 08/02/18 06:27 Dose: 25 mcg Magnesium Hydroxide (Milk Of Magnesia) 30 ml PO DAILY PRN PRN PRN Reason: Constipation Nystatin (Mycostatin Powder) 1 applic TOPICAL BID [facility]; Protocol Last Admin: 08/01/18 21:38 Dose: 1 applicatio Potassium Chloride (K-Dur) 10 meq PO DAILYCM [facility] Last Admin: 08/01/18 09:51 Dose: 10 meq Sodium Chloride () 5 - 15 ml IV UD PRN PRN Reason: SALINE FLUSH Medical Necessity - Tobacco Use Smoking Status: Former smoker Assessment/Plan All Active Problems Severe sepsis (Acute) This is a 78-year-old female who was admitted in ICU initially for left lower extremity pain and redness consistent with cellulitis along with cough and nasal congestion consistent with severe sepsis secondary to left lower extremity cellulitis injected per request bacteremia. Patient has history of metastatic breast cancer status post bilateral mastectomy and is immunocompromised, last chemo was last week. Lactic acid was 2.4 1. Severe sepsis secondary to left lower extremity cellulitis and Streptococcus bacteremia; not strep pneumoniae and UTI: Patient is hemodynamically stable and seen by our soaker hides. Patient was transferred to regular floor on telemetry. Patient initially started on IV Zosyn which is narrowed down to ceftriaxone based on urine culture report of Klebsiella pneumoniae more than 100,000, sensitive to ceftriaxone. Discussed with ID Dr. Donnelly and agree with ceftriaxone and Bactrim. Clinically observe and consider CT imaging if cellulitis or symptoms worsens. There is concern for ICD lead infection but there is no redness or tenderness around the ICD pocket but will defer the need of KEIRA on ID recommendation. 2. Acute kidney injury, most likely from dehydration: Creatinine improved to 1.06. Lactic acid elevated 2.3, 2.4 3. 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 Mild to moderate global hypokinesis. Mild TR, RVSP 35 Hg. Mild MR. Antihypertensive medications are on hold because of low blood pressure, currently recovering. 4. Metastatic breast cancer status post bilateral mastectomy: Last chemotherapy was past . She gets her cancer care in [facility]. 5. Hyponatremia, Hypotonic hypovolemic: Hyponatremia is corrected Current. Sodium is 137 from 131. Serum osmolality 282. NSVT of 12 beats: Patient calcium was 7.4 and 8.1 today. Corrected calcium is 8.5. 1 dose of calcium controlled. K4.2. Sodium 138. BMP, magnesium and phosphate ordered. Other comorbidities include hypothyroidism on Synthroid: DVT prophylaxis: On enoxaparin Discussed with the son near the bedside and updated about the diagnosis and management. Patient gets all cancer management including therefore son wanted transferred to [facility] and nighttime hospitalist Dr. Wei Loza transfer line and patient is accepted waiting for bed but in the meantime patient's son agree with management and care here. Microbiology Past 72 Hours 07/31/18 16:15 Urine, Catheterized Urine Culture - Final Klebsiella pneumoniae sp pneum 07/31/18 18:50 Blood Culture (Wb) #2 - Left Wrist Blood Culture - Preliminary 07/31/18 18:45 Blood Culture (Wb) #2 - Arm Left Blood Culture - Preliminary 07/31/18 10:05 Blood Culture (Wb) - Anticubital Left Blood Culture - Final Gram positive organism 07/31/18 10:07 Blood Culture (Wb) - Left Hand Bacteria Detection (PCR) - Final 07/31/18 10:07 Blood Culture (Wb) - Left Hand Blood Culture - Preliminary Streptococcus group G 07/31/18 16:15 Urine Catheter - Catheter Streptococcus pneumoniae Antigen (M - Final Laboratory Results 08/01/18 10:55: MRSA (PCR) Negative 08/02/18 05:46: WBC 6.8, RBC 3.42 L, Hgb 10.6 L, Hct 32.1 L, MCV 93.9, MCH 31.0, MCHC 33.0, RDW 13.5, RDW Differential 44.8 H, Plt Count 138 L, MPV 9.9, Immature Gran % (Auto) 0.300, Neut % (Auto) 82.1 H, Lymph % (Auto) 8.7 L, [place] % (Auto) 7.2, Eos % (Auto) 1.6, Baso % (Auto) 0.1, Absolute Neuts (auto) 5.6, Absolute Lymphs (auto) 0.59 L, Total Counted Not Reportable 08/02/18 05:46: Sodium 138, Potassium 4.2, Chloride 106, Carbon Dioxide 23.0, Anion Gap 9, BUN 22 H, Creatinine 0.71, Estim Creat Clear Calc 47.67, Est GFR (MDRD) Af Amer 102, Est GFR (MDRD) Non-Af 84, BUN/Creatinine Ratio 30.9 H, Glucose 101, Calcium 8.1 L Active Medications Acetaminophen (Tylenol) 650 mg PO Q6H PRN PRN PRN Reason: PAIN Last Admin: 07/31/18 22:51 Dose: 650 mg Hydrocodone Bitart/Acetaminophen ([place] 5mg-325mg) 1 tablet PO Q6H PRN PRN PRN Reason: PAIN Last Admin: 08/02/18 10:07 Dose: 1 tablet Albuterol Sulfate (Ventolin Aerosols) 2.5 mg INHALATION Q4H PRN PRN PRN Reason: DYSPNEA Aspirin (Aspirin, Baby) 81 mg PO DAILY@0800 [facility] Last Admin: 08/02/18 10:08 Dose: 81 mg Atorvastatin Calcium (Lipitor) 10 mg PO DAILY@2200 [facility] Last Admin: 08/01/18 21:35 Dose: 10 mg Calcitriol (Rocaltrol) 0.25 mcg PO DAILY [facility] Last Admin: 08/02/18 10:09 Dose: 0.25 mcg Clotrimazole (Lotrimin) 1 applicatio TOPICAL QHS [facility] Last Admin: 08/01/18 21:38 Dose: 1 applicatio Enoxaparin Sodium (Lovenox) 40 mg SC DAILY@1000 [facility] Last Admin: 08/02/18 11:03 Dose: 40 mg Ergocalciferol (Vitamin D) 50,000 unit PO QWEEK [facility] Sodium Chloride () 250 mls @ 15 mls/hr IV .[id number] PRN PRN Reason: SALINE FLUSH Ceftriaxone Sodium 2 gm/ (Sodium Chloride) 50 mls @ 100 mls/hr IV Q24 [facility] Last Admin: 08/02/18 10:17 Dose: 100 mls/hr Calcium Gluconate 1 gm/ (Dextrose) 60 mls @ 60 mls/hr IV X1 ONE Stop: 08/02/18 13:36 Levothyroxine Sodium (Synthroid) 25 mcg PO DAILY@0600 [facility] Last Admin: 08/02/18 06:27 Dose: 25 mcg Magnesium Hydroxide (Milk Of Magnesia) 30 ml PO DAILY PRN PRN PRN Reason: Constipation Nystatin (Mycostatin Powder) 1 applic TOPICAL BID [facility]; Protocol Last Admin: 08/01/18 21:38 Dose: 1 applicatio Potassium Chloride (K-Dur) 10 meq PO DAILYCM [facility] Last Admin: 08/02/18 10:08 Dose: 10 meq Sodium Chloride () 5 - 15 ml IV UD PRN PRN Reason: SALINE FLUSH Last Admin: 08/02/18 10:09 Dose: 10 ml Code Visit Inpatient E&M: [id number] [facility] Hosp L3
--- NOTE | 2018-08-02 10:35 | CON.PCM_ITS ---
Problem List (1) Severe sepsis Status: Acute Reason for Consult: bacteremia Consulted by: Dr. Kennedy History of Present Illness: The patient is a 78 year old F with breast cancer, on chemo, chronic BLE edema who presented 07/31 with acute onset of fever, chills, weakness. Has some intermittent leg serous drainage, but leg turned red, moderately painful, more swelling, warm, and white pus draining. No inciting trauma, no pet scratches/licking wounds. Last chemo was through peripheral iv last week. Came to ED, fever to 101.3, lactate 2.4. Denies any dysuria. Admitted on ceftriaxone, feeling better, leg still sore. Pain is a dull ache. Full ROS performed and neg except as noted above. Additional history provided by son at bedside. - Medical History Past Medical History (Chronic Problems): Chronic Problems Chronic CHF (Chronic) Acute pancreatitis (Chronic) Allergies/Adverse Reactions: Allergies Sulfa (Sulfonamide Antibiotics) Allergy (Verified 07/31/18 09:36) FEVER AND PUT ME IN THE BED Home Medications: Ambulatory Orders Medication Instructions Recorded Albuterol IH (ProAir) [Proair Hfa 1 - 2 puff INHALATION Q4H PRN PRN 10/19/14 (SP)Vent Pts] Ascorbic Acid [Vitamin C] 500 mg PO DAILY@0800 10/19/14 Atorvastatin Calcium [Lipitor] 10 mg PO DAILY 10/19/14 Calcitriol [Rocaltrol] 0.25 mcg PO DAILY 10/19/14 Calcium Citrate/Vitamin D3 [Hm 1 each PO DAILY 10/19/14 Calcium Citrate +Vit D3 Tab] Carvedilol [Coreg] 3.125 mg PO BID 10/19/14 Ergocalciferol [Vitamin D] 50,000 unit PO QWEEK 10/19/14 Furosemide [Lasix] 1.5 tab PO DAILY 10/19/14 Gabapentin [Neurontin] 300 mg PO BID PRN PRN 10/19/14 Levothyroxine [Synthroid] 25 mcg PO DAILY 10/19/14 [place]-3S/Dha/Epa/Fish Oil/D3 [Fish 1 each PO DAILY 10/19/14 [id number]-8-Vit D Softgel] Potassium Chloride [Klor-Con 10] 10 meq PO DAILY 10/19/14 Spironolactone [Aldactone] 25 mg PO BID 10/19/14 Oxycodone HCl/Acetaminophen 1 tablet PO Q4H PRN PRN #12 tablet 06/14/15 [Percocet 5/325] Alendronate Sodium [Fosamax] 70 mg PO Q7D@0700 04/29/17 Aspirin [Aspirin, Baby] 81 mg PO DAILY@0800 04/29/17 Ciclopirox 1 applicatio TOPICAL QHS 04/29/17 Hydrocodone Bitart/Apap 5-325 1 tablet PO Q6H PRN PRN 04/29/17 [[place] 5MG-325MG] Multivitamins,Therapeutic 1 tablet PO DAILY 04/29/17 [Multivitamin] Ubidecarenone [Coenzyme Q-10] 200 mg PO DAILY 04/29/17 Lisinopril 2.5 mg PO DAILY 07/31/18 - Social History SMOKING STATUS:: Former smoker Vital Signs Temp Pulse Resp BP Pulse Ox 99.2 F H 74 18 112/50 L 96 08/02/18 03:43 08/02/18 03:43 08/02/18 03:43 08/02/18 03:43 08/02/18 07:08 Oxygen Flow Rate (L/min) 2 Oxygen Delivery Method Room Air Weight: 95.9 kg Body Mass Index (BMI) 30.4 Microbiology Past 72 Hours 07/31/18 16:15 Urine Culture - Final Urine, Catheterized Klebsiella pneumoniae sp pneum 07/31/18 18:50 Blood Culture - Preliminary Blood Culture (Wb) #2 - Left Wrist 07/31/18 18:45 Blood Culture - Preliminary Blood Culture (Wb) #2 - Arm Left 07/31/18 10:05 Blood Culture - Final Blood Culture (Wb) - Anticubital Left Gram positive organism 07/31/18 10:07 Bacteria Detection (PCR) - Final Blood Culture (Wb) - Left Hand Blood Culture - Preliminary Streptococcus group G 07/31/18 16:15 Streptococcus pneumoniae Antigen (M - Final Urine Catheter - Catheter Laboratory Tests Past 24 Hrs 08/01/18 08/02/18 08/02/18 10:55 05:46 05:46 WBC 6.8 RBC 3.42 L Hgb 10.6 L Hct 32.1 L MCV 93.9 MCH 31.0 MCHC 33.0 RDW 13.5 RDW Differential 44.8 H Plt Count 138 L MPV 9.9 Immature Gran % (Auto) 0.300 Neut % (Auto) 82.1 H Lymph % (Auto) 8.7 L [place] % (Auto) 7.2 Eos % (Auto) 1.6 Baso % (Auto) 0.1 Absolute Neuts (auto) 5.6 Absolute Lymphs (auto) 0.59 L Total Counted Not Reportable Sodium 138 Potassium 4.2 Chloride 106 Carbon Dioxide 23.0 Anion Gap 9 BUN 22 H Creatinine 0.71 Estim Creat Clear Calc 47.67 Est GFR (MDRD) Af Amer 102 Est GFR (MDRD) Non-Af 84 BUN/Creatinine Ratio 30.9 H Glucose 101 Calcium 8.1 L MRSA (PCR) Negative - Other Studies Radiology: [] reviewed Other Studies: [] Route of nutrition/ use of supplements: [] Nutritional Intake: [] IV Site: [] Joseph Catheter: [] - Physical Exam General: Alert, Oriented x3, Cooperative, No apparent distress HEENT: Atraumatic, PERRLA, EOMI Neck: Supple, No Nodes Lungs: Clear to auscultation, Normal air movement Cardiovascular: Regular rate, Regular Rhythm, No murmurs, - - L chest icd site no redness/swelling/pain Abdomen: Soft, Non Tender, Non-Distended Extremities: Edema Skin: - - L whit[place]/ankle redness, warmth, and mild tenderness Musculoskeletal: No Tenderness to Palpation of Joints or Extremities Neurological: Cranial nerves II-XII grossly intact - Assessment/Plan Antibiotics: [] Assessment/Plan: [] Active and Suspected Problems Severe sepsis (Acute) Severe sepsis due to group G strep bacteremia from LLE cellulitis with purulent drainage prior to admission - lactic acidosis, RICKY, fever, and leukocytosis on admission are improved. Leg slightly better. TTE done. Will order CT non contrast of LLE to look for deeper abscess. Doppler pending. Given ICD and ris k of endocarditis with GGS, will also order KEIRA. Continue ceftriaxone. klebsiella bacteruria - normal UA, no urinary symptoms. Likely not true infection. Covered by above abx. Breast cancer with recent chemo - no permanent lines in place Will follow, thank you, d/w Dr. Kennedy. If KEIRA is neg, likely will be able to go home on po abx.
[2018-08-02] MEDS: Enoxaparin 40 MG/0.4 ML Syringe SC (11:03)
[2018-08-02 13:19] LABS: Magnesium 2.1 mg/dL (1.6-2.6); Phosphorus 1.6 mg/dL (2.5-4.9)
[2018-08-02] MEDS: Nystatin Powder 15gm Bottle 1 APPLIC TOPICAL ×2 (14:18→20:30)
[2018-08-02] MEDS: Atorvastatin Calcium 10 MG Tablet PO (20:29)
[2018-08-03] VITALS (10 sets, daily range): BP systolic 114–139; BP diastolic 49–68; PULSE 66–81; RESP 16–18; TEMP 36.6–37.5; O2SAT 94–100
[2018-08-03] MEDS: HYDROcodone Bitartrate/Apap 5/325 Tablet PO ×3 (01:24→20:15)
[2018-08-03] MEDS: 0.9% NaCl Peripheral Flush Adult/Peds IV ×2 (01:26→12:11)
[2018-08-03] MEDS: Acetaminophen 325 MG Tablet 650 MG PO ×2 (03:31→05:54)
--- NOTE | 2018-08-03 03:32 | NURSING ---
Patient yelling at top of lungs d/t pain. BEE FARMER first to room and BEE FARMER explained she could not yell, I was not witness to this conversation. However, upon entering patient yelled at me until she realized I was not the BEE FARMER. She yelled That tall one is not allowed near me, never again! With deescalation patient calmer and open to conversation. During this time I assessed foot causing pain. I had a conversation with patient about maintaining an inside voice, this caused her to become irate and yelling and screaming again at the top of lungs. I again explained that she has rooms on each side of her sleeping, and then again showed her how to use the call light. She returned the call light demonstration but said If I am in pain, I am going to yell until you do something about it! When giving the tylenol the patient attempted to set it on table for later I explained that she had to take it at this time, or else I would have to return later. This caused her anger to escalate again, she took one pill and then threw the other pill at RN. Following this deescalation tactics were used and patient now calm in bed. Prior to leaving I again explained the use and function of the call light.
[2018-08-03 06:46] LABS: Anion Gap 7 (5-15); BUN 17 mg/dL (7-18); BUN/Creat Ratio 24.7 RATIO (10-20); Calcium,Total 8.6 mg/dL (8.5-10.1); Chloride 106 mmol/L (98-107); Creatinine, Serum 0.69 mg/dL (0.55-1.02); EST Glomerular Filtration Rate 88 mL/min (>60); Est Glom Filt Rate - Afr Amer 106 mL/min (>60); Estimated Creatinine Clearance 47.67 ml/min; Glucose 104 mg/dL (74-106); Potassium 4.5 mmol/L (3.5-5.1); Sodium Level 138 mmol/L (136-145)
--- NOTE | 2018-08-03 11:17 | NURSING ---
in to see pt and her family at primary RN's request. pt upset that she has been NPO all morning waiting on a test that they were just told has been cancelled. pt's son at bedside on the phone. pt's son upset stating that pt was suppose to be transferred to [facility] and that he understands she declined to be transferred yesterday bc she was feeling better but states he talked with [facility] and that they stated they told him they have had a bed since the . This nurse informed son I can not speak to this that usually we have authorization or acceptance to a facility before we have a bed and if she had given up the bed by changing her mind or if she was moved units that could affect the bed availablity however again this nurse was not here and can not speak to the specifics of this situation. offered to call the patient advocate for them. pt's son also states that pt would like to be transferred. states that the patient had her cardiac issues care for by the [facility] and would like her to go there. informed of pt's upset and that they would like to talk to them. Kiera patient advocate also informed of above and she will be up to see pt at approximately 1330, pt's son aware.
[2018-08-03] MEDS: Calcitriol 0.25 MCG Capsule PO (12:12)
[2018-08-03] MEDS: Nystatin Powder 15gm Bottle 1 APPLIC TOPICAL ×2 (12:12→22:13)
[2018-08-03] MEDS: Aspirin 81 MG TAB.CHEW PO (12:12)
[2018-08-03] MEDS: Na Biphos/Potassium Phosphate PACKET 1 PACKET PO ×3 (12:12→21:14)
[2018-08-03] MEDS: Enoxaparin 40 MG/0.4 ML Syringe SC (12:13)
--- NOTE | 2018-08-03 14:36 | PCM.PN.ID ---
Subjective: Feeling ok, leg less sore and red, no fever, no n/v/d. - Physical Exam General: Alert, Cooperative, No apparent distress Lungs: Clear to auscultation, Normal air movement Cardiovascular: Regular rate, Regular Rhythm Abdomen: Soft, Non Tender, Non-Distended Skin: Rash Present - leg much less red today Vital Signs Temp Pulse Resp BP Pulse Ox 97.9 F 81 16 139/68 H 96 08/03/18 11:53 08/03/18 11:53 08/03/18 11:53 08/03/18 11:53 08/03/18 11:53 Oxygen Flow Rate (L/min) 2 Oxygen Delivery Method Room Air Weight: 94.6 kg Body Mass Index (BMI) 30.4 Intake and Output for Last 24 Hours 08/01/18 08/02/18 08/03/18 23:59 23:59 23:59 Intake Total 5448 / 5448 320 / 320 Output Total 1900 / 1900 1100 / 1100 2300 / 2300 Balance 3548 / 3548 -1100 / -1100 -1979 / Microbiology Past 72 Hours 07/31/18 18:50 Blood Culture - Preliminary Blood Culture (Wb) #2 - Left Wrist Streptococcus group G 07/31/18 18:45 Blood Culture - Preliminary Blood Culture (Wb) #2 - Arm Left Streptococcus group G 07/31/18 16:15 Urine Culture - Final Urine, Catheterized Klebsiella pneumoniae sp pneum 07/31/18 10:05 Blood Culture - Final Blood Culture (Wb) - Anticubital Left Gram positive organism 07/31/18 10:07 Bacteria Detection (PCR) - Final Blood Culture (Wb) - Left Hand Blood Culture - Preliminary Streptococcus group G 07/31/18 16:15 Streptococcus pneumoniae Antigen (M - Final Urine Catheter - Catheter Laboratory Tests Past 24 Hrs 08/03/18 06:00 Sodium 138 Potassium 4.5 Chloride 106 Carbon Dioxide 25.0 Anion Gap 7 BUN 17 Creatinine 0.69 Estim Creat Clear Calc 47.67 Est GFR (MDRD) Af Amer 106 Est GFR (MDRD) Non-Af 88 BUN/Creatinine Ratio 24.7 H Glucose 104 Calcium 8.6 Medical Necessity - Tobacco Use Smoking Status: Former smoker Route of nutrition/ use of supplements: [] Nutritional Intake: [] IV Site: [] Joseph Catheter: [] - Assessment/Plan Antibiotics: [] Assessment/Plan: [] Active and Suspected Problems Severe sepsis (Acute) Severe sepsis due to group G strep bacteremia from LLE cellulitis with purulent drainage prior to admission - lactic acidosis, RICKY, fever, and leukocytosis on admission are improved. Leg much better today. TTE done; unable to do KEIRA to eval ICD due to neck pain and limited ROM due to her cancer. Continue ceftriaxone, check repeat bcx. If she continues to show good improvement, plan will for home with po abx and monitor for possible recurrent infection. klebsiella bacteruria - normal UA, no urinary symptoms. Likely not true infection. Covered by above abx. Breast cancer with recent chemo - no permanent lines in place Will follow, d/w Dr. Kennedy.
--- NOTE | 2018-08-03 15:34 | PN_ITS ---
Subjective: Patient was concerned about the KEIRA. Discussed with Dr. Donnelly, patient's son and patient herself. Cellulitis is getting better. No fever. Patient son is concerned that there was bed open on 07/31/2018 but floor did not get any call for transfer from [facility]. For now patient is satisfied with his staying here as cellulitis is getting better and there is no need or indication for KEIRA Vitals/I&O's: Vital Signs Temp Pulse Resp BP Pulse Ox 97.9 F 81 16 139/68 H 96 08/03/18 11:53 08/03/18 11:53 08/03/18 11:53 08/03/18 11:53 08/03/18 11:53 Oxygen Flow Rate (L/min) 2 Oxygen Delivery Method Room Air Weight: 208 lb 8.917 oz Body Mass Index (BMI) 30.4 Intake and Output for Last 24 Hours 08/01/18 08/02/18 08/03/18 23:59 23:59 23:59 Intake Total 5448 / 5448 320 / 320 Output Total 1900 / 1900 1100 / 1100 2300 / 2300 Balance 3548 / 3548 -1100 / -1100 -1979 / General: Alert, Oriented x3, Cooperative HEENT: Atraumatic, PERRLA, EOMI, Normocephalic Neck: Supple, No JVD, Negative Carotid Bruits Lungs: Clear to auscultation, Normal air movement, No rhonchi, No wheeze, No rales Cardiovascular: Regular rate, Regular Rhythm, Normal S1, Normal S2, No murmurs Abdomen: Bowel Sounds Present, Soft, Non Tender, Non-Distended Extremities: No edema, Capillary Refill Less than 3 Seconds Skin: Rash Present - Rash is much improved. Musculoskeletal: Arthritic Changes, Tenderness - Mild tenderness over left leg around cellulitis region. Getting improved Neurological: Cranial nerves II-XII grossly intact Psych/Mental Status: Normal Affect, Appropriate Microbiology Past 72 Hours 07/31/18 18:50 Blood Culture (Wb) #2 - Left Wrist Blood Culture - Preliminary Streptococcus group G 07/31/18 18:45 Blood Culture (Wb) #2 - Arm Left Blood Culture - Preliminary Streptococcus group G 07/31/18 16:15 Urine, Catheterized Urine Culture - Final Klebsiella pneumoniae sp pneum 07/31/18 10:05 Blood Culture (Wb) - Anticubital Left Blood Culture - Final Gram positive organism 07/31/18 10:07 Blood Culture (Wb) - Left Hand Bacteria Detection (PCR) - Final 07/31/18 10:07 Blood Culture (Wb) - Left Hand Blood Culture - Preliminary Streptococcus group G 07/31/18 16:15 Urine Catheter - Catheter Streptococcus pneumoniae Antigen (M - Final Laboratory Results 08/03/18 06:00: Sodium 138, Potassium 4.5, Chloride 106, Carbon Dioxide 25.0, Anion Gap 7, BUN 17, Creatinine 0.69, Estim Creat Clear Calc 47.67, Est GFR (MDRD) Af Amer 106, Est GFR (MDRD) Non-Af 88, BUN/Creatinine Ratio 24.7 H, Glucose 104, Calcium 8.6 Current Medications Acetaminophen (Tylenol) 650 mg PO Q6H PRN PRN PRN Reason: PAIN Last Admin: 08/03/18 05:54 Dose: 325 mg Hydrocodone Bitart/Acetaminophen (Issue 5mg-325mg) 2 tablet PO Q6H PRN PRN PRN Reason: SEVERE PAIN (6-10/10) Last Admin: 08/03/18 12:26 Dose: 2 tablet Albuterol Sulfate (Ventolin Aerosols) 2.5 mg INHALATION Q4H PRN PRN PRN Reason: DYSPNEA Aspirin (Aspirin, Baby) 81 mg PO DAILY@0800 [facility] Last Admin: 08/03/18 12:12 Dose: 81 mg Atorvastatin Calcium (Lipitor) 10 mg PO DAILY@2200 [facility] Last Admin: 08/02/18 20:29 Dose: 10 mg Calcitriol (Rocaltrol) 0.25 mcg PO DAILY [facility] Last Admin: 08/03/18 12:12 Dose: 0.25 mcg Clotrimazole (Lotrimin) 1 applicatio TOPICAL QHS [facility] Last Admin: 08/02/18 20:29 Dose: 1 applicatio Enoxaparin Sodium (Lovenox) 40 mg SC DAILY@1000 [facility] Last Admin: 08/03/18 12:13 Dose: 40 mg Ergocalciferol (Vitamin D) 50,000 unit PO QWEEK [facility] Sodium Chloride () 250 mls @ 15 mls/hr IV .[id number] PRN PRN Reason: SALINE FLUSH Ceftriaxone Sodium 2 gm/ (Sodium Chloride) 50 mls @ 100 mls/hr IV Q24 ANNA MARIE Last Admin: 08/03/18 12:11 Dose: 100 mls/hr Ketorolac Tromethamine (Toradol) 15 mg IV Q8H PRN PRN Reason: severe pain Stop: 08/08/18 12:04 Levothyroxine Sodium (Synthroid) 25 mcg PO DAILY@0600 [facility] Last Admin: 08/03/18 01:35 Dose: Not Given Magnesium Hydroxide (Milk Of Magnesia) 30 ml PO DAILY PRN PRN PRN Reason: Constipation Nystatin (Mycostatin Powder) 1 applic TOPICAL BID [facility]; Protocol Last Admin: 08/03/18 12:12 Dose: 1 applicatio Potassium Phos/Sodium Phos (Neutra-Phos Packet) 1 packet PO TID ANNA MARIE Stop: 08/05/18 08:36 Last Admin: 08/03/18 12:12 Dose: 1 packet Sodium Chloride () 5 - 15 ml IV UD PRN PRN Reason: SALINE FLUSH Last Admin: 08/03/18 12:11 Dose: 10 ml Medical Necessity - Tobacco Use Smoking Status: Former smoker Assessment/Plan All Active Problems Severe sepsis (Acute) This is a 78-year-old female who was admitted in ICU initially for left lower extremity pain and redness consistent with cellulitis along with cough and nasal congestion consistent with severe sepsis secondary to left lower extremity cellulitis injected per request bacteremia. Patient has history of metastatic breast cancer status post bilateral mastectomy and is immunocompromised, last chemo was last week. Lactic acid was 2.4 1. Severe sepsis secondary to left lower extremity cellulitis and Streptococcus bacteremia; not strep pneumoniae and UTI: Patient is hemodynamically stable and seen by our insurance verification specialist. Patient was transferred to regular floor on telemetry. Patient initially started on IV Zosyn which is narrowed down to ceftriaxone based on urine culture report of Klebsiella pneumoniae more than 100,000, sensitive to ceftriaxone. Discussed with ID Dr. Donnelly and agree with ceftriaxone and Bactrim. CT lower extremity does not show abscess but cellulitis. No indication for ICD. Patient has follow-up for ICD interrogation [facility] on 08/11/2018. 2. Acute kidney injury, most likely from dehydration: Creatinine improved to 1.06. Lactic acid elevated 2.3, 2.4 3. 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 Mild to moderate global hypokinesis. Mild TR, RVSP 35 Hg. Mild MR. Antihypertensive medications are on hold because of low blood pressure, currently recovering. 4. Metastatic breast cancer status post bilateral mastectomy: Last chemotherapy was past . She gets her cancer care in [facility]. 5. Hyponatremia, Hypotonic hypovolemic: Hyponatremia is corrected Current. Sodium is 137 from 131. Serum osmolality 282. NSVT of 12 beats: Patient had calcium was 7.4 and 8.1 on 08/02. Corrected calcium is 8.5. 1 dose of calcium controlled. K4.2. Sodium 138. Other comorbidities include hypothyroidism on Synthroid: DVT prophylaxis: On enoxaparin Discussed with the patient's son and patient herself in detail regarding the transfer of [facility]. They want to stay here as this will assist in getting better. No need for KEIRA. Microbiology Past 72 Hours 07/31/18 18:50 Blood Culture (Wb) #2 - Left Wrist Blood Culture - Preliminary Streptococcus group G 07/31/18 18:45 Blood Culture (Wb) #2 - Arm Left Blood Culture - Preliminary Streptococcus group G 07/31/18 16:15 Urine, Catheterized Urine Culture - Final Klebsiella pneumoniae sp pneum 07/31/18 10:05 Blood Culture (Wb) - Anticubital Left Blood Culture - Final Gram positive organism 07/31/18 10:07 Blood Culture (Wb) - Left Hand Bacteria Detection (PCR) - Final 07/31/18 10:07 Blood Culture (Wb) - Left Hand Blood Culture - Preliminary Streptococcus group G 07/31/18 16:15 Urine Catheter - Catheter Streptococcus pneumoniae Antigen (M - Final Laboratory Results 08/03/18 06:00: Sodium 138, Potassium 4.5, Chloride 106, Carbon Dioxide 25.0, Anion Gap 7, BUN 17, Creatinine 0.69, Estim Creat Clear Calc 47.67, Est GFR (MDRD) Af Amer 106, Est GFR (MDRD) Non-Af 88, BUN/Creatinine Ratio 24.7 H, Glucose 104, Calcium 8.6 Active Medications Acetaminophen (Tylenol) 650 mg PO Q6H PRN PRN PRN Reason: PAIN Last Admin: 08/03/18 05:54 Dose: 325 mg Hydrocodone Bitart/Acetaminophen (Issue 5mg-325mg) 2 tablet PO Q6H PRN PRN PRN Reason: SEVERE PAIN (6-10/10) Last Admin: 08/03/18 12:26 Dose: 2 tablet Albuterol Sulfate (Ventolin Aerosols) 2.5 mg INHALATION Q4H PRN PRN PRN Reason: DYSPNEA Aspirin (Aspirin, Baby) 81 mg PO DAILY@0800 [facility] Last Admin: 08/03/18 12:12 Dose: 81 mg Atorvastatin Calcium (Lipitor) 10 mg PO DAILY@2200 [facility] Last Admin: 08/02/18 20:29 Dose: 10 mg Calcitriol (Rocaltrol) 0.25 mcg PO DAILY [facility] Last Admin: 08/03/18 12:12 Dose: 0.25 mcg Clotrimazole (Lotrimin) 1 applicatio TOPICAL QHS [facility] Last Admin: 08/02/18 20:29 Dose: 1 applicatio Enoxaparin Sodium (Lovenox) 40 mg SC DAILY@1000 [facility] Last Admin: 08/03/18 12:13 Dose: 40 mg Ergocalciferol (Vitamin D) 50,000 unit PO QWEEK [facility] Sodium Chloride () 250 mls @ 15 mls/hr IV .[id number] PRN PRN Reason: SALINE FLUSH Ceftriaxone Sodium 2 gm/ (Sodium Chloride) 50 mls @ 100 mls/hr IV Q24 [facility] Last Admin: 08/03/18 12:11 Dose: 100 mls/hr Ketorolac Tromethamine (Toradol) 15 mg IV Q8H PRN PRN Reason: severe pain Stop: 08/08/18 12:04 Levothyroxine Sodium (Synthroid) 25 mcg PO DAILY@0600 [facility] Last Admin: 08/03/18 01:35 Dose: Not Given Magnesium Hydroxide (Milk Of Magnesia) 30 ml PO DAILY PRN PRN PRN Reason: Constipation Nystatin (Mycostatin Powder) 1 applic TOPICAL BID [facility]; Protocol Last Admin: 08/03/18 12:12 Dose: 1 applicatio Potassium Phos/Sodium Phos (Neutra-Phos Packet) 1 packet PO TID [facility] Stop: 08/05/18 08:36 Last Admin: 08/03/18 16:40 Dose: 1 packet Sodium Chloride () 5 - 15 ml IV UD PRN PRN Reason: SALINE FLUSH Last Admin: 08/03/18 12:11 Dose: 10 ml Code Visit Inpatient E&M: 41991 Subs Hosp L3
[2018-08-03] MEDS: Atorvastatin Calcium 10 MG Tablet PO (21:14)
[2018-08-04] VITALS (9 sets, daily range): BP systolic 102–119; BP diastolic 52–90; PULSE 69–92; RESP 16; TEMP 36.4–36.9; O2SAT 95–100
[2018-08-04] MEDS: HYDROcodone Bitartrate/Apap 5/325 Tablet PO ×3 (04:12→18:06)
[2018-08-04] MEDS: Na Biphos/Potassium Phosphate PACKET 1 PACKET PO ×3 (05:44→21:20)
[2018-08-04] MEDS: Levothyroxine 25 MCG TABLET PO (05:44)
[2018-08-04 06:25] LABS: Anion Gap 10 (5-15); BUN 16 mg/dL (7-18); BUN/Creat Ratio 21.4 RATIO (10-20); Calcium,Total 9.1 mg/dL (8.5-10.1); Chloride 103 mmol/L (98-107); Creatinine, Serum 0.75 mg/dL (0.55-1.02); EST Glomerular Filtration Rate 79 mL/min (>60); Est Glom Filt Rate - Afr Amer 96 mL/min (>60); Estimated Creatinine Clearance 47.67 ml/min; Glucose 150 mg/dL (74-106); Potassium 4.6 mmol/L (3.5-5.1); Sodium Level 138 mmol/L (136-145)
[2018-08-04] MEDS: Aspirin 81 MG TAB.CHEW PO (08:40)
[2018-08-04] MEDS: Nystatin Powder 15gm Bottle 1 APPLIC TOPICAL ×2 (08:40→21:19)
[2018-08-04] MEDS: Enoxaparin 40 MG/0.4 ML Syringe SC (08:41)
[2018-08-04] MEDS: Calcitriol 0.25 MCG Capsule PO (08:41)
[2018-08-04] MEDS: 0.9% NaCl Peripheral Flush Adult/Peds IV (08:46)
--- NOTE | 2018-08-04 09:48 | DCINST_ITS ---
You will use the following diet at home:: Cardiac Discharge Activity: May Not Drive Call your doctor if you observe: Fever of 101 or Higher, Inability to urinate, Inability to have a bowel movement, Shortness of breath, Swelling in the ankles, Chest pain, Increased palpitations (irregular heartbeat) Allergies/Adverse Reactions: Allergies Sulfa (Sulfonamide Antibiotics) Allergy (Verified 07/31/18 09:36) FEVER AND PUT ME IN THE BED Medications to take at Discharge Albuterol IH (ProAir) [Proair Hfa (SP)Vent Pts] 1 - 2 puff INHALATION Q4H PRN PRN 10/19/14 Ascorbic Acid [Vitamin C] 500 mg PO DAILY@0800 10/19/14 Atorvastatin Calcium [Lipitor] 10 mg PO DAILY 10/19/14 Calcitriol [Rocaltrol] 0.25 mcg PO DAILY 10/19/14 Calcium Citrate/Vitamin D3 [Hm Calcium Citrate +Vit D3 Tab] 1 each PO DAILY 10/19/14 Carvedilol [Coreg] 3.125 mg PO BID 10/19/14 Ergocalciferol [Vitamin D] 50,000 unit PO QWEEK 10/19/14 Furosemide [Lasix] 1.5 tab PO DAILY 10/19/14 Gabapentin [Neurontin] 300 mg PO BID PRN PRN 10/19/14 Levothyroxine [Synthroid] 25 mcg PO DAILY 10/19/14 [place]-3S/Dha/Epa/Fish Oil/D3 [Fish Quz-Ejswz-2-Vit D Softgel] 1 each PO DAILY 10/19/14 Potassium Chloride [Klor-Con 10] 10 meq PO DAILY 10/19/14 Spironolactone [Aldactone] 25 mg PO BID 10/19/14 Oxycodone HCl/Acetaminophen [Percocet 5/325] 1 tablet PO Q4H PRN PRN #12 tablet 06/14/15 Alendronate Sodium [Fosamax] 70 mg PO Q7D@0704/29/17 Aspirin [Aspirin, Baby] 81 mg PO DAILY@0800 04/29/17 Ciclopirox 1 applicatio TOPICAL QHS 04/29/17 Hydrocodone Bitart/Apap 5-325 [[place] 5MG-325MG] 1 tablet PO Q6H PRN PRN 04/29/17 Multivitamins,Therapeutic [Multivitamin] 1 tablet PO DAILY 04/29/17 Ubidecarenone [Coenzyme Q-10] 200 mg PO DAILY 04/29/17 Lisinopril 2.5 mg PO DAILY 07/31/18 Primary Care Physician: NOT,DEFINED [NON-STAFF] - Test Results: Test results from this visit will be discussed in further detail at your follow- up appointment, if applicable.
--- NOTE | 2018-08-04 11:14 | PCM.PN.ID ---
Subjective: Feeling better, leg less sore, no fever - Physical Exam General: Alert, Cooperative, No apparent distress Lungs: Clear to auscultation, Normal air movement Cardiovascular: Regular rate, Regular Rhythm Abdomen: Soft, Non Tender, Non-Distended Skin: Rash Present - L [place] still red and mild swelling Vital Signs Temp Pulse Resp BP Pulse Ox 98.5 F 73 16 119/52 L 98 08/04/18 10:00 08/04/18 10:00 08/04/18 10:00 08/04/18 10:00 08/04/18 10:00 Oxygen Flow Rate (L/min) 2 Oxygen Delivery Method Room Air Weight: 96.1 kg Body Mass Index (BMI) 30.4 Intake and Output for Last 24 Hours 08/02/18 08/03/18 08/04/18 23:59 23:59 23:59 Intake Total 320 / 320 1007 / 1007 Output Total 1100 / 1100 2300 / 2300 1900 / 1900 Balance -1100 / -1100 -1979 / -1979 -893 / -893 Microbiology Past 72 Hours 07/31/18 18:50 Blood Culture - Preliminary Blood Culture (Wb) #2 - Left Wrist Streptococcus group G 07/31/18 18:45 Blood Culture - Preliminary Blood Culture (Wb) #2 - Arm Left Streptococcus group G 07/31/18 16:15 Urine Culture - Final Urine, Catheterized Klebsiella pneumoniae sp pneum 07/31/18 10:05 Blood Culture - Final Blood Culture (Wb) - Anticubital Left Gram positive organism 07/31/18 10:07 Bacteria Detection (PCR) - Final Blood Culture (Wb) - Left Hand Blood Culture - Preliminary Streptococcus group G 07/31/18 16:15 Streptococcus pneumoniae Antigen (M - Final Urine Catheter - Catheter Laboratory Tests Past 24 Hrs 08/04/18 05:34 Sodium 138 Potassium 4.6 Chloride 103 Carbon Dioxide 25.0 Anion Gap 10 BUN 16 Creatinine 0.75 Estim Creat Clear Calc 47.67 Est GFR (MDRD) Af Amer 96 Est GFR (MDRD) Non-Af 79 BUN/Creatinine Ratio 21.4 H Glucose 150 H Calcium 9.1 Medical Necessity - Tobacco Use Smoking Status: Former smoker Route of nutrition/ use of supplements: [] Nutritional Intake: [] IV Site: [] Joseph Catheter: [] - Assessment/Plan Antibiotics: [] Assessment/Plan: [] Active and Suspected Problems Severe sepsis (Acute) Severe sepsis due to group G strep bacteremia from LLE cellulitis with purulent drainage prior to admission - lactic acidosis, RICKY, fever, and leukocytosis on admission are improved. Leg much better today. TTE done; unable to do KEIRA to eval ICD due to neck pain and limited ROM due to her cancer. Continue ceftriaxone, repeat bcx so far neg. If she continues to show good improvement, plan will for home with po abx and monitor for possible recurrent infection. klebsiella bacteruria - normal UA, no urinary symptoms. Likely not true infection. Covered by above abx. Breast cancer with recent chemo - no permanent lines in place Will follow, d/w Dr. Kennedy.
--- NOTE | 2018-08-04 14:41 | PCM.PN.HOSP ---
Subjective: Patient still has pain in the left leg. Erythema, swelling, induration improving. No fever. Vitals/I&O's: Vital Signs Temp Pulse Resp BP Pulse Ox 98.5 F 92 16 119/52 L 98 08/04/18 10:00 08/04/18 13:26 08/04/18 10:00 08/04/18 10:00 08/04/18 10:00 Oxygen Flow Rate (L/min) 2 Oxygen Delivery Method Room Air Weight: 211 lb 13.828 oz Body Mass Index (BMI) 30.4 Intake and Output for Last 24 Hours 08/02/18 08/03/18 08/04/18 23:59 23:59 23:59 Intake Total 320 / 320 1007 / 1007 Output Total 1100 / 1100 2300 / 2300 1900 / 1900 Balance -1100 / -1100 -1979 / -1979 -893 / -893 General: Alert, Oriented x3, Cooperative HEENT: Atraumatic, PERRLA, EOMI, Normocephalic Oral: Moist Mucosa Neck: Supple, No JVD, Negative Carotid Bruits Lungs: Clear to auscultation, Normal air movement Cardiovascular: Regular rate, Normal S1, Normal S2, No murmurs, - - Short runs of NSVT. Has AICD Abdomen: Bowel Sounds Present, Soft, Non Tender Extremities: No edema, Capillary Refill Less than 3 Seconds Skin: No rashes, No breakdown Musculoskeletal: No Tenderness to Palpation of Joints or Extremities Neurological: Cranial nerves II-XII grossly intact Psych/Mental Status: Normal Affect, Appropriate Microbiology Past 72 Hours 07/31/18 18:50 Blood Culture (Wb) #2 - Left Wrist Blood Culture - Preliminary Streptococcus group G 07/31/18 18:45 Blood Culture (Wb) #2 - Arm Left Blood Culture - Preliminary Streptococcus group G 07/31/18 16:15 Urine, Catheterized Urine Culture - Final Klebsiella pneumoniae sp pneum 07/31/18 10:05 Blood Culture (Wb) - Anticubital Left Blood Culture - Final Gram positive organism 07/31/18 10:07 Blood Culture (Wb) - Left Hand Bacteria Detection (PCR) - Final 07/31/18 10:07 Blood Culture (Wb) - Left Hand Blood Culture - Preliminary Streptococcus group G 07/31/18 16:15 Urine Catheter - Catheter Streptococcus pneumoniae Antigen (M - Final Laboratory Results 08/04/18 05:34: Sodium 138, Potassium 4.6, Chloride 103, Carbon Dioxide 25.0, Anion Gap 10, BUN 16, Creatinine 0.75, Estim Creat Clear Calc 47.67, Est GFR (MDRD) Af Amer 96, Est GFR (MDRD) Non-Af 79, BUN/Creatinine Ratio 21.4 H, Glucose 150 H, Calcium 9.1 Current Medications Acetaminophen (Tylenol) 650 mg PO Q6H PRN PRN PRN Reason: PAIN Last Admin: 08/03/18 05:54 Dose: 325 mg Hydrocodone Bitart/Acetaminophen ([place] 5mg-325mg) 2 tablet PO Q6H PRN PRN PRN Reason: SEVERE PAIN (6-1010) Last Admin: 08/04/18 10:14 Dose: 2 tablet Albuterol Sulfate (Ventolin Aerosols) 2.5 mg INHALATION Q4H PRN PRN PRN Reason: DYSPNEA Aspirin (Aspirin, Baby) 81 mg PO DAILY@0800 [facility] Last Admin: 08/04/18 08:40 Dose: 81 mg Atorvastatin Calcium (Lipitor) 10 mg PO DAILY@2200 [facility] Last Admin: 08/03/18 21:14 Dose: 10 mg Calcitriol (Rocaltrol) 0.25 mcg PO DAILY [facility] Last Admin: 08/04/18 08:41 Dose: 0.25 mcg Clotrimazole (Lotrimin) 1 applicatio TOPICAL QHS [facility] Last Admin: 08/03/18 22:13 Dose: 1 applicatio Enoxaparin Sodium (Lovenox) 40 mg SC DAILY@1000 [facility] Last Admin: 08/04/18 08:41 Dose: 40 mg Ergocalciferol (Vitamin D) 50,000 unit PO QWEEK [facility] Last Admin: 08/04/18 08:40 Dose: 50,000 unit Sodium Chloride () 250 mls @ 15 mls/hr IV .[id number] PRN PRN Reason: SALINE FLUSH Ceftriaxone Sodium 2 gm/ (Sodium Chloride) 50 mls @ 100 mls/hr IV Q24 [facility] Last Admin: 08/04/18 09:05 Dose: 100 mls/hr Ketorolac Tromethamine (Toradol) 15 mg IV Q8H PRN PRN Reason: severe pain Stop: 08/08/18 12:04 Levothyroxine Sodium (Synthroid) 25 mcg PO DAILY@0600 [facility] Last Admin: 08/04/18 05:44 Dose: 25 mcg Magnesium Hydroxide (Milk Of Magnesia) 30 ml PO DAILY PRN PRN PRN Reason: Constipation Nystatin (Mycostatin Powder) 1 applic TOPICAL BID [facility]; Protocol Last Admin: 08/04/18 08:40 Dose: 1 applicatio Potassium Phos/Sodium Phos (Neutra-Phos Packet) 1 packet PO TID [facility] Stop: 08/05/18 08:36 Last Admin: 08/04/18 13:00 Dose: 1 packet Sodium Chloride () 5 - 15 ml IV UD PRN PRN Reason: SALINE FLUSH Last Admin: 08/04/18 08:46 Dose: 10 ml Medical Necessity - Tobacco Use Smoking Status: Former smoker Assessment/Plan All Active Problems Severe sepsis (Acute) This is a 78-year-old female who was admitted in ICU initially for left lower extremity pain and redness consistent with cellulitis along with cough and nasal congestion consistent with severe sepsis secondary to left lower extremity cellulitis injected per request bacteremia. Patient has history of metastatic breast cancer status post bilateral mastectomy and is immunocompromised, last chemo was last week. Lactic acid was 2.4 1. Severe sepsis secondary to left lower extremity cellulitis and Streptococcus bacteremia; not strep pneumoniae and UTI: Patient is hemodynamically stable and seen by our water vessel captain. Patient was transferred to regular floor on telemetry. Patient initially started on IV Zosyn which is narrowed down to ceftriaxone based on urine culture report of Klebsiella pneumoniae more than 100,000, sensitive to ceftriaxone. Discussed with ID Dr. Donnelly and agree with ceftriaxone and Bactrim. CT lower extremity does not show abscess but cellulitis. No indication for ICD. Patient has follow-up for ICD interrogation [facility] on 08/11/2018. will need total of 10 days of antibiotics. 2. Acute kidney injury, most likely from dehydration: Creatinine improved to 1.06. Lactic acid elevated 2.3, 2.4 3. 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 Mild to moderate global hypokinesis. Mild TR, RVSP 35 Hg. Mild MR. Antihypertensive medications are on hold because of low blood pressure, currently recovering. 4. Metastatic breast cancer status post bilateral mastectomy: Last chemotherapy was past . She gets her cancer care in [facility]. 5. Hyponatremia, Hypotonic hypovolemic: Hyponatremia is corrected Current. Sodium is 137 from 131. Serum osmolality 282. NSVT of 12 beats on 08/02 and 7 beats on 08/04: Patient had calcium was 7.4 and 8.1 on 08/02. Corrected calcium is 8.5. 1 dose of calcium gluconate was given. K is 4.6. Calcium 9.1. Repeat magnesium and phosphorus ordered. Patient had mild hypophosphatemia and is on Neutra-Phos 3 times daily Other comorbidities include hypothyroidism on Synthroid: DVT prophylaxis: On enoxaparin Discussed with the patient's son and patient herself in detail regarding the transfer of [facility]. They want to stay here as this will assist in getting better. No need for KEIRA. Plan of care discussed with the patient the presence of nurse and Dr. Donnelly Microbiology Past 72 Hours 07/31/18 18:50 Blood Culture (Wb) #2 - Left Wrist Blood Culture - Preliminary Streptococcus group G 07/31/18 18:45 Blood Culture (Wb) #2 - Arm Left Blood Culture - Preliminary Streptococcus group G 07/31/18 16:15 Urine, Catheterized Urine Culture - Final Klebsiella pneumoniae sp pneum 07/31/18 10:05 Blood Culture (Wb) - Anticubital Left Blood Culture - Final Gram positive organism 07/31/18 10:07 Blood Culture (Wb) - Left Hand Bacteria Detection (PCR) - Final 07/31/18 10:07 Blood Culture (Wb) - Left Hand Blood Culture - Preliminary Streptococcus group G 07/31/18 16:15 Urine Catheter - Catheter Streptococcus pneumoniae Antigen (M - Final Laboratory Results 08/04/18 05:34: Sodium 138, Potassium 4.6, Chloride 103, Carbon Dioxide 25.0, Anion Gap 10, BUN 16, Creatinine 0.75, Estim Creat Clear Calc 47.67, Est GFR (MDRD) Af Amer 96, Est GFR (MDRD) Non-Af 79, BUN/Creatinine Ratio 21.4 H, Glucose 150 H, Calcium 9.1 Active Medications Acetaminophen (Tylenol) 650 mg PO Q6H PRN PRN PRN Reason: PAIN Last Admin: 08/03/18 05:54 Dose: 325 mg Hydrocodone Bitart/Acetaminophen ([place] 5mg-325mg) 2 tablet PO Q6H PRN PRN PRN Reason: SEVERE PAIN (6-10/10) Last Admin: 08/03/18 12:26 Dose: 2 tablet Albuterol Sulfate (Ventolin Aerosols) 2.5 mg INHALATION Q4H PRN PRN PRN Reason: DYSPNEA Aspirin (Aspirin, Baby) 81 mg PO DAILY@0800 [facility] Last Admin: 08/03/18 12:12 Dose: 81 mg Atorvastatin Calcium (Lipitor) 10 mg PO DAILY@2200 [facility] Last Admin: 08/02/18 20:29 Dose: 10 mg Calcitriol (Rocaltrol) 0.25 mcg PO DAILY [facility] Last Admin: 08/03/18 12:12 Dose: 0.25 mcg Clotrimazole (Lotrimin) 1 applicatio TOPICAL QHS [facility] Last Admin: 08/02/18 20:29 Dose: 1 applicatio Enoxaparin Sodium (Lovenox) 40 mg SC DAILY@1000 [facility] Last Admin: 08/03/18 12:13 Dose: 40 mg Ergocalciferol (Vitamin D) 50,000 unit PO QWEEK [facility] Sodium Chloride () 250 mls @ 15 mls/hr IV .[id number] PRN PRN Reason: SALINE FLUSH Ceftriaxone Sodium 2 gm/ (Sodium Chloride) 50 mls @ 100 mls/hr IV Q24 [facility] Last Admin: 08/03/18 12:11 Dose: 100 mls/hr Ketorolac Tromethamine (Toradol) 15 mg IV Q8H PRN PRN Reason: severe pain Stop: 08/08/18 12:04 Levothyroxine Sodium (Synthroid) 25 mcg PO DAILY@0600 [facility] Last Admin: 08/03/18 01:35 Dose: Not Given Magnesium Hydroxide (Milk Of Magnesia) 30 ml PO DAILY PRN PRN PRN Reason: Constipation Nystatin (Mycostatin Powder) 1 applic TOPICAL BID [facility]; Protocol Last Admin: 08/03/18 12:12 Dose: 1 applicatio Potassium Phos/Sodium Phos (Neutra-Phos Packet) 1 packet PO TID [facility] Stop: 08/05/18 08:36 Last Admin: 08/03/18 16:40 Dose: 1 packet Sodium Chloride () 5 - 15 ml IV UD PRN PRN Reason: SALINE FLUSH Last Admin: 08/03/18 12:11 Dose: 10 ml Code Visit Inpatient E&M: 63147 Subs Hosp L3
--- NOTE | 2018-08-04 14:46 | PN_ITS ---
Subjective: Patient still has pain in the left leg. Erythema, swelling, induration improving. No fever. Vitals/I&O's: Vital Signs Temp Pulse Resp BP Pulse Ox 98.5 F 92 16 119/52 L 98 08/04/18 10:00 08/04/18 13:26 08/04/18 10:00 08/04/18 10:00 08/04/18 10:00 Oxygen Flow Rate (L/min) 2 Oxygen Delivery Method Room Air Weight: 211 lb 13.828 oz Body Mass Index (BMI) 30.4 Intake and Output for Last 24 Hours 08/02/18 08/03/18 08/04/18 23:59 23:59 23:59 Intake Total 320 / 320 1007 / 1007 Output Total 1100 / 1100 2300 / 2300 1900 / 1900 Balance -1100 / -1100 -1979 / -1979 -893 / -893 General: Alert, Oriented x3, Cooperative HEENT: Atraumatic, PERRLA, EOMI, Normocephalic Oral: Moist Mucosa Neck: Supple, No JVD, Negative Carotid Bruits Lungs: Clear to auscultation, Normal air movement Cardiovascular: Regular rate, Normal S1, Normal S2, No murmurs, - - Short runs of NSVT. Has AICD Abdomen: Bowel Sounds Present, Soft, Non Tender Extremities: No edema, Capillary Refill Less than 3 Seconds Skin: No rashes, No breakdown Musculoskeletal: No Tenderness to Palpation of Joints or Extremities Neurological: Cranial nerves II-XII grossly intact Psych/Mental Status: Normal Affect, Appropriate Microbiology Past 72 Hours 07/31/18 18:50 Blood Culture (Wb) #2 - Left Wrist Blood Culture - Preliminary Streptococcus group G 07/31/18 18:45 Blood Culture (Wb) #2 - Arm Left Blood Culture - Preliminary Streptococcus group G 07/31/18 16:15 Urine, Catheterized Urine Culture - Final Klebsiella pneumoniae sp pneum 07/31/18 10:05 Blood Culture (Wb) - Anticubital Left Blood Culture - Final Gram positive organism 07/31/18 10:07 Blood Culture (Wb) - Left Hand Bacteria Detection (PCR) - Final 07/31/18 10:07 Blood Culture (Wb) - Left Hand Blood Culture - Preliminary Streptococcus group G 07/31/18 16:15 Urine Catheter - Catheter Streptococcus pneumoniae Antigen (M - Final Laboratory Results 08/04/18 05:34: Sodium 138, Potassium 4.6, Chloride 103, Carbon Dioxide 25.0, Anion Gap 10, BUN 16, Creatinine 0.75, Estim Creat Clear Calc 47.67, Est GFR (MDRD) Af Amer 96, Est GFR (MDRD) Non-Af 79, BUN/Creatinine Ratio 21.4 H, Gluc ose 150 H, Calcium 9.1 Current Medications Acetaminophen (Tylenol) 650 mg PO Q6H PRN PRN PRN Reason: PAIN Last Admin: 08/03/18 05:54 Dose: 325 mg Hydrocodone Bitart/Acetaminophen ([place] 5mg-325mg) 2 tablet PO Q6H PRN PRN PRN Reason: SEVERE PAIN (6-1010) Last Admin: 08/04/18 10:14 Dose: 2 tablet Albuterol Sulfate (Ventolin Aerosols) 2.5 mg INHALATION Q4H PRN PRN PRN Reason: DYSPNEA Aspirin (Aspirin, Baby) 81 mg PO DAILY@0800 [facility] Last Admin: 08/04/18 08:40 Dose: 81 mg Atorvastatin Calcium (Lipitor) 10 mg PO DAILY@2200 [facility] Last Admin: 08/03/18 21:14 Dose: 10 mg Calcitriol (Rocaltrol) 0.25 mcg PO DAILY [facility] Last Admin: 08/04/18 08:41 Dose: 0.25 mcg Clotrimazole (Lotrimin) 1 applicatio TOPICAL QHS [facility] Last Admin: 08/03/18 22:13 Dose: 1 applicatio Enoxaparin Sodium (Lovenox) 40 mg SC DAILY@1000 [facility] Last Admin: 08/04/18 08:41 Dose: 40 mg Ergocalciferol (Vitamin D) 50,000 unit PO QWEEK [facility] Last Admin: 08/04/18 08:40 Dose: 50,000 unit Sodium Chloride () 250 mls @ 15 mls/hr IV .[id number] PRN PRN Reason: SALINE FLUSH Ceftriaxone Sodium 2 gm/ (Sodium Chloride) 50 mls @ 100 mls/hr IV Q24 [facility] Last Admin: 08/04/18 09:05 Dose: 100 mls/hr Ketorolac Tromethamine (Toradol) 15 mg IV Q8H PRN PRN Reason: severe pain Stop: 08/08/18 12:04 Levothyroxine Sodium (Synthroid) 25 mcg PO DAILY@0600 [facility] Last Admin: 08/04/18 05:44 Dose: 25 mcg Magnesium Hydroxide (Milk Of Magnesia) 30 ml PO DAILY PRN PRN PRN Reason: Constipation Nystatin (Mycostatin Powder) 1 applic TOPICAL BID [facility]; Protocol Last Admin: 08/04/18 08:40 Dose: 1 applicatio Potassium Phos/Sodium Phos (Neutra-Phos Packet) 1 packet PO TID [facility]NA [facility] Stop: 08/05/18 08:36 Last Admin: 08/04/18 13:00 Dose: 1 packet Sodium Chloride () 5 - 15 ml IV UD PRN PRN Reason: SALINE FLUSH Last Admin: 08/04/18 08:46 Dose: 10 ml Medical Necessity - Tobacco Use Smoking Status: Former smoker Assessment/Plan All Active Problems Severe sepsis (Acute) This is a 78-year-old female who was admitted in ICU initially for left lower extremity pain and redness consistent with cellulitis along with cough and nasal congestion consistent with severe sepsis secondary to left lower extremity cellulitis injected per request bacteremia. Patient has history of me tastatic breast cancer status post bilateral mastectomy and is immunocompromised, last chemo was last week. Lactic acid was 2.4 1. Severe sepsis secondary to left lower extremity cellulitis and Streptococcus bacteremia; not strep pneumoniae and UTI: Patient is hemodynamically stable and seen by our doughnut batter mixer. Patient was transferred to regular floor on telemetry. Patient initially started on IV Zosyn which is narrowed down to ceftriaxone based on urine culture report of Klebsiella pneumoniae more than 100,000, sensitive to ceftriaxone. Discussed with ID Dr. Donnelly and agree with cef triaxone and Bactrim. CT lower extremity does not show abscess but cellulitis. No indication for ICD. Patient has follow-up for ICD interrogation [facility] on 08/11/2018. will need total of 10 days of antibiotics. 2. Acute kidney injury, most likely from dehydration: Creatinine improved to 1.06. Lactic acid elevated 2.3, 2.4 3. 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 Mild to moderate global hypokinesis. Mild TR, RVSP 35 Hg. Mild MR. Antihypertensive medications are on hold because of low blood pressure, currently recovering. 4. Metastatic breast cancer status post bilateral mastectomy: Last chemotherapy was past . She gets her cancer care in [facility]. 5. Hyponatremia, Hypotonic hypovolemic: Hyponatremia is corrected Current. Sodium is 137 from 131. Serum osmolality 282. NSVT of 12 beats on 08/02 and 7 beats on 08/04: Patient had calcium was 7.4 and 8.1 on 08/02. Corrected calcium is 8.5. 1 dose of calcium gluconate was given. K is 4.6. Calcium 9.1. Repeat magnesium and phosphorus ordered. Patient had mild hypophosphatemia and is on Neutra-Phos 3 times daily Other comorbidities include hypothyroidism on Synthroid: DVT prophylaxis: On enoxaparin Discussed with the patient's son and patient herself in detail regarding the transfer of [facility]. They want to stay here as this will assist in getting better. No need for KEIRA. Plan of care discussed with the patient the presence of nurse and Dr. Donnelly Microbiology Past 72 Hours 07/31/18 18:50 Blood Culture (Wb) #2 - Left Wrist Blood Culture - Preliminary Streptococcus group G 07/31/18 18:45 Blood Culture (Wb) #2 - Arm Left Blood Culture - Preliminary Streptococcus group G 07/31/18 16:15 Urine, Catheterized Urine Culture - Final Klebsiella pneumoniae sp pneum 07/31/18 10:05 Blood Culture (Wb) - Anticubital Left Blood Culture - Final Gram positive organism 07/31/18 10:07 Blood Culture (Wb) - Left Hand Bacteria Detection (PCR) - Final 07/31/18 10:07 Blood Culture (Wb) - Left Hand Blood Culture - Preliminary Streptococcus group G 07/31/18 16:15 Urine Catheter - Catheter Streptococcus pneumoniae Antigen (M - Final Laboratory Results 08/04/18 05:34: Sodium 138, Potassium 4.6, Chloride 103, Carbon Dioxide 25.0, Anion Gap 10, BUN 16, Creatinine 0.75, Estim Creat Clear Calc 47.67, Est GFR (MDRD) Af Amer 96, Est GFR (MDRD) Non-Af 79, BUN/Creatinine Ratio 21.4 H, Glucose 150 H, Calcium 9.1 Active Medications Acetaminophen (Tylenol) 650 mg PO Q6H PRN PRN PRN Reason: PAIN Last Admin: 08/03/18 05:54 Dose: 325 mg Hydrocodone Bitart/Acetaminophen ([place] 5mg-325mg) 2 tablet PO Q6H PRN PRN PRN Reason: SEVERE PAIN (6-10/10) Last Admin: 08/03/18 12:26 Dose: 2 tablet Albuterol Sulfate (Ventolin Aerosols) 2.5 mg INHALATION Q4H PRN PRN PRN Reason: DYSPNEA Aspirin (Aspirin, Baby) 81 mg PO DAILY@0800 [facility] Last Admin: 08/03/18 12:12 Dose: 81 mg Atorvastatin Calcium (Lipitor) 10 mg PO DAILY@2200 [facility] Last Admin: 08/02/18 20:29 Dose: 10 mg Calcitriol (Rocaltrol) 0.25 mcg PO DAILY [facility] Last Admin: 08/03/18 12:12 Dose: 0.25 mcg Clotrimazole (Lotrimin) 1 applicatio TOPICAL QHS [facility] Last Admin: 08/02/18 20:29 Dose: 1 applicatio Enoxaparin Sodium (Lovenox) 40 mg SC DAILY@1000 [facility] Last Admin: 08/03/18 12:13 Dose: 40 mg Ergocalciferol (Vitamin D) 50,000 unit PO QWEEK [facility] Sodium Chloride () 250 mls @ 15 mls/hr IV .[id number] PRN PRN Reason: SALINE FLUSH Ceftriaxone Sodium 2 gm/ (Sodium Chloride) 50 mls @ 100 mls/hr IV Q24 [facility] Last Admin: 08/03/18 12:11 Dose: 100 mls/hr Ketorolac Tromethamine (Toradol) 15 mg IV Q8H PRN PRN Reason: severe pain Stop: 08/08/18 12:04 Levothyroxine Sodium (Synthroid) 25 mcg PO DAILY@0600 [facility] Last Admin: 08/03/18 01:35 Dose: Not Given Magnesium Hydroxide (Milk Of Magnesia) 30 ml PO DAILY PRN PRN PRN Reason: Constipation Nystatin (Mycostatin Powder) 1 applic TOPICAL BID [facility]; Protocol Last Admin: 08/03/18 12:12 Dose: 1 applicatio Potassium Phos/Sodium Phos (Neutra-Phos Packet) 1 packet PO TID [facility] Stop: 08/05/18 08:36 Last Admin: 08/03/18 16:40 Dose: 1 packet Sodium Chloride () 5 - 15 ml IV UD PRN PRN Reason: SALINE FLUSH Last Admin: 08/03/18 12:11 Dose: 10 ml Code Visit Inpatient E&M: [id number] Subs Hosp L3
[2018-08-04 16:32] LABS: Phosphorus 5.2 mg/dL (2.5-4.9)
[2018-08-04] MEDS: Atorvastatin Calcium 10 MG Tablet PO (21:19)
[2018-08-05] MEDS: HYDROcodone Bitartrate/Apap 5/325 Tablet PO ×3 (00:28→13:19)
[2018-08-05 04:00] VITALS: BP 101/66; PULSE 76; RESP 18; TEMP 36.7; O2SAT 99
[2018-08-05] MEDS: Na Biphos/Potassium Phosphate PACKET 1 PACKET PO (05:49)
[2018-08-05] MEDS: Levothyroxine 25 MCG TABLET PO (05:49)
[2018-08-05 08:48] VITALS: BP 114/59; PULSE 70; RESP 20; TEMP 37; O2SAT 97
[2018-08-05] MEDS: Aspirin 81 MG TAB.CHEW PO (08:49)
[2018-08-05] MEDS: Nystatin Powder 15gm Bottle 1 APPLIC TOPICAL (08:50)
[2018-08-05] MEDS: Calcitriol 0.25 MCG Capsule PO (08:54)
--- NOTE | 2018-08-05 10:10 | DCINST_ITS ---
You will use the following diet at home:: Cardiac Discharge Activity: May Not Drive Weight Bearing Status: Weight bearing as tolerated Call your doctor if you observe: Fever of 101 or Higher, Inability to urinate, Inability to have a bowel movement, Shortness of breath, Swelling in the ankles, Chest pain, Increased palpitations (irregular heartbeat) Additional Instructions: Follow-up [facility] algebra tutor on August 10, 2018 for AICD interrogation. Allergies/Adverse Reactions: Allergies Sulfa (Sulfonamide Antibiotics) Allergy (Verified 07/31/18 09:36) FEVER AND PUT ME IN THE BED Medications to take at Discharge Albuterol IH (ProAir) [Proair Hfa] 1 - 2 puff INHALATION Q4H PRN PRN 10/19/14 Ascorbic Acid [Vitamin C] 500 mg PO DAILY@0800 10/19/14 Atorvastatin Calcium [Lipitor] 10 mg PO DAILY 10/19/14 Calcitriol [Rocaltrol] 0.25 mcg PO DAILY 10/19/14 Calcium Citrate/Vitamin D3 [Hm Calcium Citrate-Vit D3 Tab] 1 each PO DAILY 10/19/14 Carvedilol [Coreg (Beta Christopher)] 3.125 mg PO BID 10/19/14 Ergocalciferol [Vitamin D] 50,000 unit PO QWEEK 10/19/14 Furosemide [Lasix] 1.5 tab PO DAILY 10/19/14 Gabapentin [Neurontin] 300 mg PO BID PRN PRN 10/19/14 Levothyroxine [Synthroid] 25 mcg PO DAILY 10/19/14 [place]-3S/Dha/Epa/Fish Oil/D3 [Fish Awr-Fvsmy-4-Vit D Softgel] 1 each PO DAILY 10/19/14 Potassium Chloride [Klor-Con 10] 10 meq PO DAILY 10/19/14 Spironolactone [Aldactone] 25 mg PO BID 10/19/14 Oxycodone HCl/Acetaminophen [Percocet 5-325] 1 tablet PO Q4H PRN PRN #12 tablet 06/14/15 Alendronate Sodium [Fosamax] 70 mg PO Q7D@0700 04/29/17 Aspirin [Aspirin, Baby] 81 mg PO DAILY@0800 04/29/17 Ciclopirox 1 applicatio TOPICAL QHS 04/29/17 Hydrocodone Bitart/Apap 5-325 [Colome 5/325] 1 tablet PO Q6H PRN PRN 04/29/17 Multivitamins,Therapeutic [Multivitamin] 1 tablet PO DAILY 04/29/17 Ubidecarenone [Coenzyme Q-10] 200 mg PO DAILY 04/29/17 Lisinopril 2.5 mg PO DAILY 07/31/18 Cephalexin [Keflex] 500 mg PO TID #21 capsule 08/05/18 The following prescriptions were given: Cephalexin [Keflex] 500 mg PO TID #21 capsule Primary Care Physician: NOT,DEFINED [NON-STAFF] - Please follow up with your Primary Care Physician in: IN 2 WEEKS Test Results: Test results from this visit will be discussed in further detail at your follow- up appointment, if applicable. Please Follow Up With: Jonah Donnelly MD When: IN 1-2 WEEKS for LLE Cellulitis and Bactermia
--- NOTE | 2018-08-05 11:13 | NURSING ---
Iv leaking. This nurse called and spoke with Dr. Kennedy to see if he wants to re-start her IV and give the 1000 dose of Ce[address] or not. Dr. Kennedy said to wait and talk to Infectious Disease when he comes and ask him.
--- NOTE | 2018-08-05 12:05 | CASEMGMT ---
GABRIELE KUMAR in to discuss discharge needs with patient. Patient declines HHC at this time. Patient states that she has oxygen at home and will need a new tank. Patient states that she had oxygen setup at home when she was at [place] but does not know company. GABRIELE KUMAR continued to ask questions regarding oxygen and patient became agitated and declined to speak with CM any further. Patient is currently on room air with SPO2 @ 97%. GABRIELE KUMAR updated floor nurse that patient is requesting oxygen tank at discharge but refused to talk anymore about it. JOSÉ will continue to follow this patient and plan for a safe discharge.
[2018-08-05] MEDS: Enoxaparin 40 MG/0.4 ML Syringe SC (13:03)
--- NOTE | 2018-08-05 13:55 | PCM.PN.ID ---
Subjective: Feeling better, leg improved, no fever - Physical Exam General: Alert, Cooperative, No apparent distress Lungs: Clear to auscultation, Normal air movement Cardiovascular: Regular rate, Regular Rhythm Abdomen: Soft, Non Tender, Non-Distended Extremities: Edema Skin: Rash Present - improving on L lower leg Vital Signs Temp Pulse Resp BP Pulse Ox 98.6 F 70 20 H 114/59 L 97 08/05/18 08:48 08/05/18 08:48 08/05/18 08:48 08/05/18 08:48 08/05/18 08:48 Oxygen Flow Rate (L/min) 2 Oxygen Delivery Method Room Air Weight: 96.1 kg Body Mass Index (BMI) 30.4 Intake and Output for Last 24 Hours 08/03/18 08/04/18 08/05/18 23:59 23:59 23:59 Intake Total 320 / 320 1007 / 1007 728 / 728 Output Total 2300 / 2300 1900 / 1900 1800 / 1800 Balance -1980 / -1980 -893 / -893 -1072 / -1072 Microbiology Past 72 Hours 08/03/18 14:00 Blood Culture - Preliminary Blood Culture (Wb) - Left Hand No growth in 48 hours. 07/31/18 10:07 Bacteria Detection (PCR) - Final Blood Culture (Wb) - Left Hand Blood Culture - Final Streptococcus group G 07/31/18 18:45 Blood Culture - Final Blood Culture (Wb) #2 - Arm Left Streptococcus group G 07/31/18 18:50 Blood Culture - Preliminary Blood Culture (Wb) #2 - Left Wrist Streptococcus group G Laboratory Tests Past 24 Hrs 08/04/18 08/04/18 05:34 05:34 Phosphorus 5.2 H Magnesium 2.0 Medical Necessity - Tobacco Use Smoking Status: Former smoker Route of nutrition/ use of supplements: [] Nutritional Intake: [] IV Site: [] Joseph Catheter: [] - Assessment/Plan Antibiotics: [] Assessment/Plan: [] Active and Suspected Problems Severe sepsis (Acute) Severe sepsis due to group G strep bacteremia from LLE cellulitis with purulent drainage prior to admission - lactic acidosis, RICKY, fever, and leukocytosis on admission are improved. Leg much better today. TTE done; unable to do KEIRA to eval ICD due to neck pain and limited ROM due to her cancer. Continue ceftriaxone, repeat bcx so far neg. If she continues to show good improvement, plan will for home with po keflex 500mg tid for one more week. klebsiella bacteruria - normal UA, no urinary symptoms. Likely not true infection. Covered by above abx. Breast cancer with recent chemo - no permanent lines in place Will follow, d/w Dr. Kennedy.
--- NOTE | 2018-08-05 13:59 | PCM.DC.SUM ---
Discharge Date and Diagnosis Date of Admission: 07/31/18 Date of Discharge: 08/05/18 - Secondary Discharge Diagnosis Chronic Problems Chronic CHF (Chronic) Acute pancreatitis (Chronic) Hospital Course and Treatment Summary of Care Provided: [] This is a 78-year-old female who was admitted in ICU initially for left lower extremity pain and redness consistent with cellulitis along with cough and nasal congestion consistent with severe sepsis secondary to left lower extremity cellulitis injected per request bacteremia. Patient has history of metastatic breast cancer status post bilateral mastectomy and is immunocompromised, last chemo was last week. Lactic acid was 2.4 1. Severe sepsis (fever, leukocytosis, lactic acidosis and acute kidney injury) secondary to left lower extremity cellulitis and Streptococcus bacteremia; not strep pneumoniae and Klebsiella UTI: Patient is hemodynamically stable and seen by our product development actuary. Patient was transferred to regular floor on telemetry. Patient initially started on IV Zosyn which is narrowed down to ceftriaxone based on urine culture report of Klebsiella pneumoniae more than 100,000, sensitive to ceftriaxone. Discussed with ID Dr. Donnelly and agree with ceftriaxone and Bactrim. CT lower extremity does not show abscess but cellulitis. ID recommended for 7 more days of Keflex 500 mg 3 times daily and a prescription given. Klebsiella covered by Keflex. Klebsiella UTI: ID thinks it is capsular bacteria perhaps noted to infection but it is covered by above antibiotic. 2. Acute kidney injury, most likely from dehydration: Creatinine improved to 1.06. Lactic acid elevated 2.3, 2.4 3. 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 Mild to moderate global hypokinesis. Mild TR, RVSP 35 Hg. Mild MR. Antihypertensive medications are on hold because of low blood pressure, currently recovering. 4. Metastatic breast cancer status post bilateral mastectomy: Last chemotherapy was past . She gets her cancer care in [facility]. 5. Hyponatremia, Hypotonic hypovolemic: Hyponatremia is corrected Current. Sodium is 137 from 131. Serum osmolality 282 NSVT of 12 beats on 08/02 and 7 beats on 08/04: Patient had calcium was 7.4 and 8.1 on 08/02. Corrected calcium is 8.5. 1 dose of calcium gluconate was given. K is 4.6. Calcium 9.1. Patient had mild hypophosphatemia and is treated with Neutra-Phos 3 times daily. . Electrolytes abnormality including hypophosphatemia corrected. Other comorbidities include hypothyroidism on Synthroid: DVT prophylaxis: On enoxaparin Plan of care discussed with the patient the presence of nurse and Dr. Donnelly Discharge medication reconciliation done. Discharge follow-up instructions completed. Discharge process discussed with the patient and all questions were answered to patient's satisfaction.. Total time spent, exact 35 minutes on discharge meds reconciliation, examination, review of imaging and blood test and discussion with the patient on follow-up instructions. Subjective: Seen and examined. No fever or chills. Redness is restricted to lower one third of leg near the ankle. Baseline venous edema and lymphedema. - Physical Exam General: Alert, Oriented x3, Cooperative HEENT: Atraumatic, PERRLA, EOMI, Normocephalic Neck: Supple, No JVD, Negative Carotid Bruits, - Lungs: Clear to auscultation, Normal air movement, No rhonchi, No wheeze, No rales Cardiovascular: Regular rate, Regular Rhythm, Normal S1, Normal S2, No murmurs Abdomen: Bowel Sounds Present, Soft, Non Tender Extremities: Capillary Refill Less than 3 Seconds, Edema - Bilateral lower leg lymphedema. Skin: Rash Present - Erythematous rash present on the left lower one third. Mild tenderness present. Musculoskeletal: No Tenderness to Palpation of Joints or Extremities, Tenderness Neurological: Cranial nerves II-XII grossly intact Psych/Mental Status: Normal Affect, Appropriate Vital Signs Temp Pulse Resp BP Pulse Ox 98.6 F 70 20 H 114/59 L 97 08/05/18 08:48 08/05/18 08:48 08/05/18 08:48 08/05/18 08:48 08/05/18 08:48 Oxygen Flow Rate (L/min) 2 Oxygen Delivery Method Room Air Weight: 211 lb 13.828 oz Body Mass Index (BMI) 30.4 Intake and Output for Last 24 Hours 08/03/18 08/04/18 08/05/18 23:59 23:59 23:59 Intake Total 320 / 320 1007 / 1007 728 / 728 Output Total 2300 / 2300 1900 / 1900 1800 / 1800 Balance -1980 / -1980 -893 / -893 -1072 / -1072 Microbiology Past 72 Hours 08/03/18 14:00 Blood Culture - Preliminary Blood Culture (Wb) - Left Hand No growth in 48 hours. 07/31/18 10:07 Bacteria Detection (PCR) - Final Blood Culture (Wb) - Left Hand Blood Culture - Final Streptococcus group G 07/31/18 18:45 Blood Culture - Final Blood Culture (Wb) #2 - Arm Left Streptococcus group G 07/31/18 18:50 Blood Culture - Preliminary Blood Culture (Wb) #2 - Left Wrist Streptococcus group G Laboratory Tests Past 24 Hrs 08/04/18 08/04/18 05:34 05:34 Phosphorus 5.2 H Magnesium 2.0 Discharge Diet: No Restrictions Discharge Activity: May Not Drive Weight Bearing Status: Weight bearing as tolerated Call your doctor if you observe: Fever of 101 or Higher, Inability to urinate, Inability to have a bowel movement, Shortness of breath, Swelling in the ankles, Chest pain, Increased palpitations (irregular heartbeat) Home Medications: Medications to take at Discharge Albuterol IH (ProAir) [Proair Hfa] 1 - 2 puff INHALATION Q4H PRN PRN 10/19/14 Ascorbic Acid [Vitamin C] 500 mg PO DAILY@0800 10/19/14 Atorvastatin Calcium [Lipitor] 10 mg PO DAILY 10/19/14 Calcitriol [Rocaltrol] 0.25 mcg PO DAILY 10/19/14 Calcium Citrate/Vitamin D3 [Hm Calcium Citrate-Vit D3 Tab] 1 each PO DAILY 10/19/14 Carvedilol [Coreg (Beta Christopher)] 3.125 mg PO BID 10/19/14 Ergocalciferol [Vitamin D] 50,000 unit PO QWEEK 10/19/14 Furosemide [Lasix] 1.5 tab PO DAILY 10/19/14 Gabapentin [Neurontin] 300 mg PO BID PRN PRN 10/19/14 Levothyroxine [Synthroid] 25 mcg PO DAILY 10/19/14 [place]-3S/Dha/Epa/Fish Oil/D3 [Fish Mmv-Lgxeu-6-Vit D Softgel] 1 each PO DAILY 10/19/14 Potassium Chloride [Klor-Con 10] 10 meq PO DAILY 10/19/14 Spironolactone [Aldactone] 25 mg PO BID 10/19/14 Oxycodone HCl/Acetaminophen [Percocet 5-325] 1 tablet PO Q4H PRN PRN #12 tablet 06/14/15 Alendronate Sodium [Fosamax] 70 mg PO Q7D@0700 04/29/17 Aspirin [Aspirin, Baby] 81 mg PO DAILY@0800 04/29/17 Ciclopirox 1 applicatio TOPICAL QHS 04/29/17 Hydrocodone Bitart/Apap 5-325 [Ada 5/325] 1 tablet PO Q6H PRN PRN 04/29/17 Multivitamins,Therapeutic [Multivitamin] 1 tablet PO DAILY 04/29/17 Ubidecarenone [Coenzyme Q-10] 200 mg PO DAILY 04/29/17 Lisinopril 2.5 mg PO DAILY 07/31/18 Cephalexin [Keflex] 500 mg PO TID #21 capsule 08/05/18 Following Prescrptions Were Given to Patient: Cephalexin [Keflex] 500 mg PO TID #21 capsule Primary Care Physician: NOT,DEFINED [NON-STAFF] - Please follow up with your Primary Care Physician in: IN 2 WEEKS Please Follow Up With: Jonah Donnelly MD When: IN 1-2 WEEKS for LLE Cellulitis and Bactermia Medical Necessity - Tobacco Use Smoking Status: Former smoker Meaningful Use Info Meaningful Use Diagnoses (Choose all that apply): None applicable Code Visit Inpatient E&M: 75385 Disch Hosp
--- NOTE | 2018-08-05 14:08 | NURSING ---
Dr. Donnelly saw pt and is aware that IV was leaking and taken out this am and if it is okay not to have since going home on oral. That is okay with Dr. Donnelly as long as she takes her Antibotic at home orally today. pt is aware. Dr. Donnelly is okay with having pt go home.
[2018-08-05 15:33] VITALS: BP 133/46; PULSE 83; RESP 18; TEMP 37.1; O2SAT 92
--- NOTE | 2018-08-08 16:20 | CASEMGMT ---
GABRIELE KUMAR DC PHONE CALL DC DATE: 08/05/18 DC DISPOSITION: HOME LACE/[id number]/4 Intro role of CM to patient via phone. Reviewed DC instructions. Pt states physician told her she had a blood clot in my leg, but is not on medication for this on dc. GABRIELE KUMAR reviewed DC Summary, noted no mention of DVT. New prescription only noted for Keflex which pt has been taking. Pt does not have appt yet for PCP. GABRIELE KUMAR offered to fax DC Summary with medication list to PCP and notify nurse of pt's dc and concerns. Pt states she will make her own appt. -On further review of chart, Venous doppler report states Acute deep venous thrombosis R posterior tibial and peroneal veins. Report and DC Summary faxed to Dr. Mcfadden's office. Call to Nurse, updated on above. Nurse states that pt had called in and gave above information re: her concerns. Was instructed to return to ER. -GABRIELE KUMAR attempted to call pt back. Message left letting pt know information was faxed and called to Dr. Mcfadden and call back information was given if pt wanted to speak with GABRIELE KUMAR again. Flavio ALCANTARN RN ACM
== END 2018-08-05 15:20 | disposition home or self-care (01) | DRG 871 ==
LOC: ED 10:45 → MS3 12:14 → ICU 19:06 → MS3 08-01 09:07
PROVIDERS: Internal Medicine Critical Care Medicine; Admitting Provider Student in an Organized Health Care Education/Training Program; Emergency Provider Emergency Medicine; Family Provider Family Medicine; PCP Family Medicine; Visit Provider Internal Medicine
DX: A40.8 Other streptococcal sepsis (principal); I50.43 Acute on chronic combined systolic (congestive) and diastolic (congestive) heart failure; L03.116 Cellulitis of left lower limb; N17.9 Acute kidney failure, unspecified; N39.0 Urinary tract infection, site not specified; E87.1 Hypo-osmolality and hyponatremia; I47.2 Ventricular tachycardia; C79.51 Secondary malignant neoplasm of bone; I82.442 Acute embolism and thrombosis of left tibial vein; R65.20 Severe sepsis without septic shock; Z23 Encounter for immunization; B96.1 Klebsiella pneumoniae [K. pneumoniae] as the cause of diseases classified elsewhere; E86.0 Dehydration; E83.39 Other disorders of phosphorus metabolism; E03.9 Hypothyroidism, unspecified; Z95.810 Presence of automatic (implantable) cardiac defibrillator; Z79.899 Other long term (current) drug therapy; C50.919 Malignant neoplasm of unspecified site of unspecified female breast; Z90.13 Acquired absence of bilateral breasts and nipples
CPT/HCPCS: 36415; 36600; 71045; 73700; 80048; 80076; 81001; 82803; 83605; 83735; 83880; 83930; 84100; 85025; 87040; 87077; 87086; 87088; 87149; 87186; 87449; 87641; 93005; 93306; 93970; 94640; 97162; 97165; 97530; 99285; J7030; J7040; 90686; A4216; J0610; J0696

== ENCOUNTER 2018-08-26 14:22 | Inpatient (IN) | payer MEDICARE, MEDICAID, SELFPAY ==
[2018-07-31 12:40] VITALS: BMI 30.4
[2018-08-26] VITALS (7 sets, daily range): BP systolic 97–124; BP diastolic 41–79; PULSE 71–78; RESP 16–18; TEMP 36.6–37.2; O2SAT 91–98; BMI 31.9; BMI 30.4
--- NOTE | 2018-08-26 15:24 | ED.DCSUM_ITS ---
- ER Visit Summary Date of Service: 08/26/18 Chief Complaint: Left lower extremity cellulitis History of Present Illness: The patient is a 78 F states about 3 weeks ago was diagnosed with a right lower extremity DVT. Also that time was diagnosed with cellulitis in her left lower extremity and it may have been in both lower extremities at that time. Was initially hospitalized here. Treated discharged to home several days after that admission was admitted to [facility] for cellulitis of her lower extremities. States she was hospitalized there for approximately 5-7 days. Is home currently on Eliquis for her DVT and Keflex for her cellulitis. Spoke with her primary care physician's office today who sent her into the ER for evaluation. Physical Examination: Older female no acute distress. Vital signs are stable. Pulse ox 91% on room air no signs of hypoxia. H EENT exam unremarkable. Neck nontender no JVD. Lungs clear to auscultation bilaterally. Heart regular rhythm rate about 80 no murmur. Abdomen soft nontender. Normal bowel sounds no peritoneal signs. Extremities moves all 4. [place] point her left lower leg she has cellulitis down the foot. Warm to the touch. No lymphangitic streaking. Right lower extremity is nontender without edema. Both are neurovascular intact. Neurologically she is awake and alert with no focal motor deficits. She is answering questions and following commands. Son is present in the room. Test Results: CBC had a white count of 7. Baseline hemoglobin 11. No bands. Electrolytes BUN 35 creatinine 1. Gap of 10. Emergency Department Course and Treatment: Stable appearing older female with cellulitis in her left lower leg and reported DVT in her right. Currently being treated with oral antibiotics and anticoagulants. Treatment Plan: I spoke to the hospitalist is down to evaluate the patient. Patient will be started on cefazolin per the hospitalist request for left lower extremity cellulitis. The hospitalist also requested that I obtain bilateral venous noninvasive studies to rule out expansion of the right clot or a new clot in the left leg. This was secondary to the concern of the patient's son. 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 It may contain incorrect words, spelling, and punctuation that were not noted in review of the chart prior to signing ED Disposition - Plan for ED Patient: Referrals: Herve Mcfadden MD [Primary Care Provider] -
[2018-08-26 15:48] LABS: Absolute Lymphocyte Count 1.03 X10^3/ul (0.83-4.51); Basophil# 0.02 X10^3/uL; Basophil% 0.3 % (0-1); Eosinophils% 2.8 % (0-5); Hematocrit 34.9 % (37-47); Hemoglobin 11.3 g/dl (12.0-15.0); Lymphocyte # 1.03 X10^3/ul (4.0); Lymphocyte % 14.5 % (19-41); Mean Corp Hgb Conc 32.4 g/gl (32-36); Mean Corpuscular Hgb 30.5 pg (27.0-32.0); Mean Corpuscular Volume 94.1 fL (81-99); Mean Platelet Vol. 8.8 fl (6.2-12.0); Monocyte# 0.88 X10^3/uL; Monocyte% 12.4 % (0-10); Neutrophil # 4.98 X10^3/uL (2.7-7.7); Neutrophil % 69.9 % (47-70); Platelet Count 240 K/mm3 (150-450); RBC Distribution Width CV 13.4 % (11.6-14.6); Red Blood Count 3.71 M/mm3 (4.2-5.4); White Blood Count 7.1 K/mm3 (4.4-11.0)
[2018-08-26 15:49] LABS: POSITIVE COUNT NO; POSITIVE DIFFERENTIAL NO; POSITIVE MORPHOLOGY NO
[2018-08-26 16:02] LABS: Anion Gap 10 (5-15); BUN 35 mg/dL (7-18); BUN/Creat Ratio 33.7 RATIO (10-20); Calcium,Total 9.1 mg/dL (8.5-10.1); Chloride 95 mmol/L (98-107); Creatinine, Serum 1.04 mg/dL (0.55-1.02); EST Glomerular Filtration Rate 54 mL/min (>60); Est Glom Filt Rate - Afr Amer 66 mL/min (>60); Estimated Creatinine Clearance 44.25 ml/min; Glucose 84 mg/dL (74-106); Potassium 4.4 mmol/L (3.5-5.1); Sodium Level 136 mmol/L (136-145)
--- NOTE | 2018-08-26 16:31 | NURSING ---
CALLED [facility] FOR DISCHARGE PAPERS FROM [facility]. TALKED TO MARISOL, HE TOOK ALL THE INFO AND WILL HAVE IT FAXED TO US
--- NOTE | 2018-08-26 16:56 | NURSING ---
MED SURG OBS LT LEG CELLULITIS, HX OF RT LEG DVT PAIINTSIL
--- NOTE | 2018-08-26 16:59 | HP.PCM_ITS ---
Problem List (1) Left leg cellulitis Status: Acute (2) Right leg DVT Status: Acute Qualifiers: Chronicity: acute (3) Chronic CHF Status: Chronic Qualifiers: Heart failure type: systolic Qualified Code(s): I50.22 - Chronic systolic (congestive) heart failure (4) Osteoporosis Status: Acute Qualifiers: Osteoporosis type: unspecified Presence of current pathological fracture: unspecified Qualified Code(s): M81.0 - Age-related osteoporosis without current pathological fracture History of Present Illness Date of Admission: 08/26/18 Chief Complaint: Left leg cellulitis, s/p failed outpatient treatment The patient is a 78 year old F with past medical history of metastatic breast cancer, ischemic cardiomyopathy, chronic systolic CHF, EF 40%, CAD, s/p pacemaker, osteoporosis, who was recently discharged on 08/05/18 after being admitted with severe sepsis secondary to left lower extremity cellulitis with Streptococcus bacteremia and Klebsiella UTI. Patient was also found to have DVT but she says she was not treated. She reports that she was called to come back to the emergency department. Patient subsequently went to [facility] where she got treatment with apixaban and antibiotics were continued. She reports that she was admitted for 5 days in [facility]. She was discharged and since being discharged, patient has not seen any improvement in her left lower extremity. Left lower extremity still appears red, unchanged, swollen. She denied fever or chills or chest pain or SOB. Admits to having 3 loose stools yesterday and 2 today. Nonbloody Vitals in ED was T 99F, HR 78, BP 124/60, RR 16, SpO2 98% on room air. Labs showed WBC count of 7.1, hemoglobin 11.3, platelet 240, sodium 136, potassium 4.4, chloride 95, bicarbonate 31, BUN 35, creatinine 1.04, up from 0.75 Doppler ultrasound of both legs show no new DVT, stable right mid posterior tibial vein DVT Past Medical History Past Medical History (Chronic Problems): Chronic Problems Chronic CHF (Chronic) Acute pancreatitis (Chronic) Allergies Sulfa (Sulfonamide Antibiotics) Allergy (Verified 08/26/18 14:27) FEVER AND PUT ME IN THE BED Home Medications: Ambulatory Orders Medication Instructions Recorded Albuterol IH (ProAir) [Proair Hfa] 1 - 2 puff INHALATION Q6H PRN PRN 10/19/14 Ascorbic Acid [Vitamin C] 500 mg PO DAILY@0800 10/19/14 [place]-3S/Dha/Epa/Fish Oil/D3 [Fish 1 each PO DAILY 10/19/14 Shq-Tgbxc-3-Vit D Softgel] Alendronate Sodium [Fosamax] 70 mg PO TH 04/29/17 Multivitamins,Therapeutic 1 tablet PO DAILY 04/29/17 [Multivitamin] Acetaminophen [Tylenol] 325 - 650 mg PO Q6H PRN PRN 08/26/18 Apixaban [Eliquis] 5 mg PO BID 08/26/18 Calcitriol [Rocaltrol] 0.25 mcg PO DAILY 08/26/18 Carvedilol 3.125 mg PO BIDCM 08/26/18 Cephalexin [Keflex] 1,000 mg PO TID 08/26/18 Furosemide [Lasix] 80 mg PO DAILY 08/26/18 Surgical History: hysterectomy, mastectomy Psychiatric History: No pertinent psych hx QUALITY CONTROL CHECKER History: No pertinent QUALITY CONTROL CHECKER history Lives: Alone Smoking Status: Former smoker Tobacco Use: Cigarettes Alcohol: None Drugs: None - *Family History Maternal History Items: Heart Disease, Hypertension Paternal History Items: Heart Disease Review of Systems Constitutional: Denies: Anorexia, Chills, Fever, Weakness, Weight Change Eyes: Denies: Blurred vision, Cataracts, Conjunctivae Inflammation, Pain, Redness, Vision Change HEENT: Denies: Head Aches, Hearing Changes, Sinus Congestion, Sinus Drainage, Sore Throat Cardiovascular: Denies: Chest Pain, Claudication, Orthopnea, Palpitations, Paroxysmal Noc. Dyspnea Respiratory: Denies: Cough, Shortness of Breath, Shortness of breath at rest, Shortness of breath upon exertion, Sputum production Gastrointestinal: Reports: Diarrhea - since yesterday. Denies: Abdominal Pain, Constipation, Nausea, Vomiting Genitourinary: Denies: Dysuria, Frequency, Nocturia Musculoskeletal: Denies: Joint Pain, Joint stiffness, Joint swelling, Joint Tenderness Skin: Reports: Skin Changes - cellulitis of left lower leg, not unchanged. Denies: Wounds Neurological: Denies: Difficulty swallowing, Focal weakness, Numbness, Tingling Psychiatric: Denies: Anxiety, Depression, Homicidal Ideations, Suicidal Ideations Hematologic/ Lymphatic: Denies: Easy Bruising, Easy Bleeding VTE Information - Inpt Only VTE Present on Admission: No VTE Pharm Prophylaxis ordered?: Yes Patient Problems: Active and Suspected Problems Left leg cellulitis (Acute) Right leg DVT (Acute) Osteoporosis (Acute) - Physical Exam General: Alert, Oriented x3, Cooperative, No apparent distress HEENT: Atraumatic, PERRLA, EOMI, Normocephalic Oral: Moist Mucosa Neck: Supple, No JVD, Negative Carotid Bruits Lungs: Clear to auscultation, Normal air movement Cardiovascular: Regular rate, Regular Rhythm, Normal S1, Normal S2, No murmurs Abdomen: Bowel Sounds Present, Soft, Non Tender, Non-Distended Extremities: Edema - trace edema of right lower extremity, right leg erythema of ankle and lower leg with diffenetial warmth and pedal edema +2-3 Skin: No rashes, No breakdown Musculoskeletal: No Tenderness to Palpation of Joints or Extremities Neurological: Cranial nerves II-XII grossly intact Psych/Mental Status: Normal Affect, Appropriate Vital Signs Temp Pulse Resp BP Pulse Ox 98.2 F 74 16 116/74 98 08/26/18 16:27 08/26/18 16:27 08/26/18 16:27 08/26/18 16:27 08/26/18 16:27 Oxygen Delivery Method Room Air Weight: 95.254 kg Body Mass Index (BMI) 31.9 Laboratory Tests Past 24 Hrs 08/26/18 08/26/18 15:35 15:35 WBC 7.1 RBC 3.71 L Hgb 11.3 L Hct 34.9 L MCV 94.1 MCH 30.5 MCHC 32.4 RDW 13.4 RDW Differential 44.0 H Plt Count 240 MPV 8.8 Immature Gran % (Auto) 0.100 Neut % (Auto) 69.9 Lymph % (Auto) 14.5 L [place] % (Auto) 12.4 H Eos % (Auto) 2.8 Baso % (Auto) 0.3 Absolute Neuts (auto) 5.0 Absolute Lymphs (auto) 1.03 Total Counted Not Reportable Sodium 136 Potassium 4.4 Chloride 95 L Carbon Dioxide 31.0 Anion Gap 10 BUN 35 H Creatinine 1.04 H Estim Creat Clear Calc 44.25 Est GFR (MDRD) Af Amer 66 Est GFR (MDRD) Non-Af 54 L BUN/Creatinine Ratio 33.7 H Glucose 84 Calcium 9.1 Assessment/Plan All Active Problems Left leg cellulitis (Acute) Right leg DVT (Acute) Osteoporosis (Acute) Severe sepsis (Acute) 78 year old F with past medical history of metastatic breast cancer, ischemic cardiomyopathy, chronic systolic CHF, EF 40%, CAD, s/p pacemaker, osteoporosis, who was recently discharged on 08/05/18 after being admitted with severe sepsis secondary to left lower extremity cellulitis with Streptococcus bacteremia and Klebsiella UTI. 1. Acute cellulitis, status post failed outpatient therapy, not improving, on oral Keflex recent history of severe sepsis secondary to left lower extremity cellulitis with Streptococcus bacteremia and Klebsiella UTI. Stable vitals Repeat Doppler ultrasound shows no DVT in the left lower extremity but stable in the right lower extremity Plan: Admit to [facility], elevate leg, continue on IV cefazolin, pain control continue to monitor vitals 2. Chronic systolic CHF, EF 40% persistent leg edema, likely mild acute exacerbation, will check BNPep, hold home oral Lasix; continue on IV Lasix twice daily, daily weight, CHF protocol, strict I's and O's 3. DVT of the right lower extremity, on apixaban, continue same 4. Recent severe sepsis/streptococcal bacteremia/Klebsiella UTI, no signs of sepsis Recent discharge from [facility] for the same condition, would obtain records from [facility]. 5. Osteoporosis, on alendronate, calcitriol, continue same medications 6. Hypertension/CAD, on carvedilol 7. Debility related to the above underlying conditions, PT and OT to evaluate and treat 8. DVT prophylaxis with apixaban 9. CODE STATUS-full code Code Visit Inpatient E&M: 78031 Init Hosp L3
--- NOTE | 2018-08-26 17:07 | US_ITS ---
STUDY: VENOUS DOPPLER ULTRASOUND - BILATERAL LOWER EXTREMITIES REASON FOR EXAM: Female, 78 years old. Note right deep vein thrombosis, bilateral leg swelling TECHNIQUE: Ultrasound evaluation of the deep vein system to include mena-scale imaging and compression was performed. Mena-scale imaging and Doppler sonographic evaluation, including duplex spectral analysis and qualitative color flow sonography, was performed. Exam is limited due to severe pain (limiting compressibility). COMPARISON: 08/02/2018 FINDINGS: RIGHT LEG Common Femoral Vein: Normal compression, spontaneity and augmentation. Normal color Doppler. Common Femoral Vein/Greater Saphenous Junction: No deep vein thrombosis demonstrated. Deep Femoral Vein: Not well seen Femoral Proximal: Normal compressibility without intraluminal thrombus. Femoral Middle: Normal compression, spontaneity and augmentation. Normal color Doppler. Femoral Distal: Normal compressibility without intraluminal thrombus. Popliteal Vein: Normal compression, spontaneity and augmentation. Normal color Doppler. Posterior Tibial Vein: Intraluminal thrombus in the mid calf with diminished compressibility. Peroneal Vein: Not well visualized. LEFT LEG Common Femoral Vein: Normal compression, spontaneity and augmentation. Normal color Doppler. Common Femoral Vein/Greater Saphenous Junction: Normal compressibility without intraluminal thrombus. Deep Femoral Vein: Not well seen. Femoral Proximal: Normal compressibility without intraluminal thrombus. Femoral Middle: Normal compression, spontaneity and augmentation. Normal color Doppler. Femoral Distal: Normal compressibility without intraluminal thrombus. Popliteal Vein: Normal compression, spontaneity and augmentation. Normal color Doppler. Posterior Tibial Vein: Normal compressibility without intraluminal thrombus. Peroneal Vein: Not well seen. US/Venous Duplex Imag/Rj Extrem IMPRESSION: 1. No new or expanding deep vein thrombosis. 2. Stable right mid posterior tibial vein deep vein thrombosis. 3. Exam limited due to patient tolerance to exam (limited compressibility). Electronically Signed: Reza Gonzales MD at 18:21 EST , Service support ,
[2018-08-26] MEDS: Cefazolin 1 GM/50 ML BAG IV ×2 (17:08→21:24)
--- NOTE | 2018-08-26 18:58 | PCA ---
faxed over medical records for patient to [facility]
[2018-08-26] MEDS: Furosemide 40 MG/4 ML Vial IV (19:25)
[2018-08-26] MEDS: 0.9% NaCl Peripheral Flush Adult/Peds IV ×2 (19:25→21:30)
[2018-08-26] MEDS: APIXABAN 5 MG TABLET PO (21:26)
[2018-08-26] MEDS: oxyCODONE 5 MG Tablet PO (21:26)
[2018-08-26] MEDS: Acetaminophen 500 MG Tablet 1000 MG PO (21:26)
[2018-08-26 23:07] LABS: Bedside Glucose 153 mg/dL (70-110)
[2018-08-27] VITALS (9 sets, daily range): BP systolic 108–118; BP diastolic 47–60; PULSE 62–72; RESP 16–18; TEMP 36.6–36.7; O2SAT 94–98
[2018-08-27] MEDS: oxyCODONE 5 MG Tablet PO ×2 (04:28→12:39)
[2018-08-27] MEDS: Acetaminophen 500 MG Tablet 1000 MG PO ×3 (06:27→21:08)
[2018-08-27] MEDS: Cefazolin 1 GM/50 ML BAG IV ×3 (06:27→21:09)
[2018-08-27 07:28] LABS: Absolute Lymphocyte Count 0.84 X10^3/ul (0.83-4.51); Absolute Neutrophil Count 2.4 X10^3/uL (2.0-7.7); Basophil# 0.02 X10^3/uL; Basophil% 0.5 % (0-1); Eosinophil# 0.24 X10^3/uL; Eosinophils% 5.9 % (0-5); Hematocrit 33.6 % (37-47); Hemoglobin 10.9 g/dl (12.0-15.0); Lymphocyte # 0.84 X10^3/ul (4.0); Lymphocyte % 20.6 % (19-41); Mean Corp Hgb Conc 32.4 g/gl (32-36); Mean Corpuscular Hgb 29.8 pg (27.0-32.0); Mean Corpuscular Volume 91.8 fL (81-99); Mean Platelet Vol. 8.5 fl (6.2-12.0); Monocyte# 0.58 X10^3/uL; Monocyte% 14.2 % (0-10); Neutrophil # 2.39 X10^3/uL (2.7-7.7); Neutrophil % 58.6 % (47-70); Platelet Count 200 K/mm3 (150-450); RBC Distribution Width CV 13.5 % (11.6-14.6); RBC Distribution Width SD 45.1 fl (35.1-43.9); Red Blood Count 3.66 M/mm3 (4.2-5.4); White Blood Count 4.1 K/mm3 (4.4-11.0)
[2018-08-27 07:30] LABS: POSITIVE COUNT NO; POSITIVE DIFFERENTIAL NO; POSITIVE MORPHOLOGY NO
[2018-08-27 07:47] LABS: Anion Gap 10 (5-15); BUN 30 mg/dL (7-18); BUN/Creat Ratio 34.8 RATIO (10-20); Calcium,Total 8.8 mg/dL (8.5-10.1); Chloride 96 mmol/L (98-107); Creatinine, Serum 0.86 mg/dL (0.55-1.02); EST Glomerular Filtration Rate 67 mL/min (>60); Est Glom Filt Rate - Afr Amer 82 mL/min (>60); Estimated Creatinine Clearance 53.51 ml/min; Glucose 108 mg/dL (74-106); Potassium 3.9 mmol/L (3.5-5.1); Sodium Level 136 mmol/L (136-145)
[2018-08-27] MEDS: Multivitamins,Therapeutic Tablet 1 TABLET PO (09:01)
[2018-08-27] MEDS: Carvedilol 3.125 MG TABLET PO ×2 (09:01→17:26)
[2018-08-27] MEDS: APIXABAN 5 MG TABLET PO ×2 (09:01→21:08)
[2018-08-27] MEDS: Ascorbic Acid 500 MG Tablet PO (09:01)
[2018-08-27] MEDS: Furosemide 40 MG/4 ML Vial IV ×2 (09:02→17:26)
[2018-08-27] MEDS: Calcitriol 0.25 MCG Capsule PO (09:02)
[2018-08-27] MEDS: 0.9% NaCl Peripheral Flush Adult/Peds IV ×2 (09:08→17:26)
--- NOTE | 2018-08-27 10:52 | PCM.PN.HOSP ---
Patient Problems: Active and Suspected Problems Left leg cellulitis (Acute) Right leg DVT (Acute) Osteoporosis (Acute) Subjective: Patient was seen and examined. She feels improved. Has had 2 bowel movement since being admitted. Denies any fever or chills. Vitals are stable. No fevers. No WBC count today. Objective: Physical Exam General: Alert, Oriented x3, Cooperative, No apparent distress HEENT: Atraumatic, PERRLA, EOMI, Normocephalic Oral: Moist Mucosa Neck: Supple, No JVD, Negative Carotid Bruits Lungs: Clear to auscultation, Normal air movement Cardiovascular: Regular rate, Regular Rhythm, Normal S1, Normal S2, No murmurs Abdomen: Bowel Sounds Present, Soft, Non Tender, Non-Distended Extremities: Edema - trace edema of right lower extremity, improved right leg erythema of ankle and lower leg with differential warmth and pedal edema +2, wrinkles of skin on legs. Skin: No rashes, No breakdown Musculoskeletal: No Tenderness to Palpation of Joints or Extremities Neurological: Cranial nerves II-XII grossly intact Psych/Mental Status: Normal Affect, Appropriate Vitals/I&O's: Vital Signs Temp Pulse Resp BP Pulse Ox 98.0 F 66 16 113/55 L 97 08/27/18 08:50 08/27/18 08:50 08/27/18 08:50 08/27/18 08:50 08/27/18 08:50 Oxygen Delivery Method Room Air Weight: 90.2 kg Body Mass Index (BMI) 30.4 Intake and Output for Last 24 Hours 08/25/18 08/26/18 08/27/18 23:59 23:59 23:59 Intake Total 579 / 579 Balance 579 / 579 Laboratory Results 08/26/18 15:35: WBC 7.1, RBC 3.71 L, Hgb 11.3 L, Hct 34.9 L, MCV 94.1, MCH 30.5, MCHC 32.4, RDW 13.4, RDW Differential 44.0 H, Plt Count 240, MPV 8.8, Immature Gran % (Auto) 0.100, Neut % (Auto) 69.9, Lymph % (Auto) 14.5 L, [place] % (Auto) 12.4 H, Eos % (Auto) 2.8, Baso % (Auto) 0.3, Absolute Neuts (auto) 5.0, Absolute Lymphs (auto) 1.03, Total Counted Not Reportable 08/26/18 15:35: Sodium 136, Potassium 4.4, Chloride 95 L, Carbon Dioxide 31.0, Anion Gap 10, BUN 35 H, Creatinine 1.04 H, Estim Creat Clear Calc 44.25, Est GFR (MDRD) Af Amer 66, Est GFR (MDRD) Non-Af 54 L, BUN/Creatinine Ratio 33.7 H, Glucose 84, Calcium 9.1 08/26/18 15:35: B-Natriuretic Peptide 74.0 08/26/18 22:28: POC Glucose 153 H 08/27/18 06:55: Sodium 136, Potassium 3.9, Chloride 96 L, Carbon Dioxide 30.0, Anion Gap 10, BUN 30 H, Creatinine 0.86, Estim Creat Clear Calc 53.51, Est GFR (MDRD) Af Amer 82, Est GFR (MDRD) Non-Af 67, BUN/Creatinine Ratio 34.8 H, Glucose 108 H, Calcium 8.8 08/27/18 06:55: WBC 4.1 L, RBC 3.66 L, Hgb 10.9 L, Hct 33.6 L, MCV 91.8, MCH 29.8, MCHC 32.4, RDW 13.5, RDW Differential 45.1 H, Plt Count 200, MPV 8.5, Immature Gran % (Auto) 0.200, Neut % (Auto) 58.6, Lymph % (Auto) 20.6, [place] % (Auto) 14.2 H, Eos % (Auto) 5.9 H, Baso % (Auto) 0.5, Absolute Neuts (auto) 2.4, Absolute Lymphs (auto) 0.84, Total Counted Not Reportable Current Medications Acetaminophen (Tylenol) 1,000 mg PO TID [facility] Last Admin: 08/27/18 06:27 Dose: 1,000 mg Alendronate Sodium (Fosamax) 70 mg PO QWEEK [facility] Apixaban (Eliquis) 5 mg PO BID [facility] Last Admin: 08/27/18 09:01 Dose: 5 mg Ascorbic Acid (Vitamin C) 500 mg PO DAILY@0800 [facility] Last Admin: 08/27/18 09:01 Dose: 500 mg Calcitriol (Rocaltrol) 0.25 mcg PO DAILY [facility] Last Admin: 08/27/18 09:02 Dose: 0.25 mcg [facility] ([facility]g) [facility] Last Admin: 08/27/18 09:01 Dose: 3.1249 mg Dextrose (D50w Syringe) 0 gm IV X1 PRN; Protocol PRN Reason: Hypoglycemia Furosemide (Lasix) 40 mg IV BID@1000,1800 [facility] Last Admin: 08/27/18 09:02 Dose: 40 mg Glucagon () 1 mg IM .X1 PRN PRN Reason: Hypoglycemia Cefazolin Sodium () 1 gm in 50 mls @ 100 mls/hr IV Q8 [facility] Last Admin: 08/27/18 06:27 Dose: 100 mls/hr Sodium Chloride () 1,000 mls @ 1 mls/hr IV .Q48H PRN PRN Reason: Saline Flush Magnesium Hydroxide (Milk Of Magnesia) 30 ml PO DAILY PRN PRN PRN Reason: Constipation Multivitamins (Multivitamin) [facility] Last Admin: 08/27/18 09:01 Dose: 1 tablet Nutritional Formula (Lactose Free) (Ensure Enlive) 120 ml PO 4X/DAY [facility] Last Admin: 08/27/18 09:06 Dose: 120 ml Ondansetron HCl (Zofran) 4 mg IV Q8H PRN PRN PRN Reason: NAUSEA Oxycodone HCl (Oxyir) 5 mg PO Q4H PRN PRN PRN Reason: Moderate Pain (pain scale 4-5) Last Admin: 08/27/18 04:28 Dose: 5 mg Sodium Chloride () 5 - 15 ml IV UD PRN PRN Reason: SALINE FLUSH Last Admin: 08/27/18 09:08 Dose: 10 ml Medical Necessity - Tobacco Use Smoking Status: Former smoker Tobacco Use: Cigarettes Assessment/Plan All Active Problems Left leg cellulitis (Acute) Right leg DVT (Acute) Osteoporosis (Acute) Severe sepsis (Acute) 78 year old F with past medical history of metastatic breast cancer, ischemic cardiomyopathy, chronic systolic CHF, EF 40%, CAD, s/p pacemaker, osteoporosis, who was recently discharged on 08/05/18 after being admitted with severe sepsis secondary to left lower extremity cellulitis with Streptococcus bacteremia and Klebsiella UTI. 1. Acute cellulitis, status post failed outpatient therapy, not improving, on oral Keflex recent history of severe sepsis secondary to left lower extremity cellulitis with Streptococcus bacteremia and Klebsiella UTI. Stable vitals Repeat Doppler ultrasound shows no DVT in the left lower extremity but stable in the right lower extremity Plan:Continue to elevate leg, continue on IV cefazolin, pain control 2. Chronic systolic CHF, EF 40%, persistent leg edema, acute exacerbation ruled out with BNPep 74, will continue on Lasix IV. Continue to hold home oral Lasix; daily weight, CHF protocol, strict I's and O's 3. DVT of the right lower extremity, on apixaban, continue same 4. Recent severe sepsis/streptococcal bacteremia/Klebsiella UTI, no signs of sepsis 5. Osteoporosis, on alendronate, calcitriol, continue same medications 6. Hypertension/CAD, on carvedilol 7. Debility related to the above underlying conditions, PT and OT to evaluate and treat 8. DVT prophylaxis with apixaban 9. CODE STATUS-full code 10. Disposition: Dc in 24-48hrs Code Visit Inpatient E&M: 43173 Subs Hosp L2
--- NOTE | 2018-08-27 16:06 | CM.UR ---
Attempted to meet with patient today however she refused to see me. Stated, I don't need a disease case manager. Abelardo Torres RN, CCM.
[2018-08-28 00:48] VITALS: PULSE 83
[2018-08-28 02:45] VITALS: BP 118/69; PULSE 68; RESP 16; TEMP 36.6; O2SAT 96
[2018-08-28 04:23] VITALS: PULSE 60
[2018-08-28] MEDS: Acetaminophen 500 MG Tablet 1000 MG PO (05:18)
[2018-08-28] MEDS: Cefazolin 1 GM/50 ML BAG IV (05:19)
[2018-08-28 07:45] VITALS: BP 123/67; PULSE 69; RESP 16; TEMP 36.7; O2SAT 98
[2018-08-28] MEDS: Carvedilol 3.125 MG TABLET PO (07:53)
[2018-08-28] MEDS: Multivitamins,Therapeutic Tablet 1 TABLET PO (07:53)
[2018-08-28] MEDS: Ascorbic Acid 500 MG Tablet PO (07:53)
--- NOTE | 2018-08-28 08:35 | PCM.DC ---
- Discharge Diagnoses Current Active Problems: Current Active and Chronic Problems Left leg cellulitis (Acute) Right leg DVT (Acute) Osteoporosis (Acute) Reason(s) for Visit for Discharge Instructions: Left leg swelling You will use the following diet at home:: Cardiac Your food should be the consistency of: Regular Your liquids should be the consistency of: Regular/Thin Discharge Activity: Return to Normal Activity Additional Instructions: Complete your antibiotics at home. Watch your salt intake- low salt diet. Restrict your fluid intake. Continue to take all your medications. Continue to elevate your left leg. Continue to remain active. Allergies/Adverse Reactions: Allergies Sulfa (Sulfonamide Antibiotics) Allergy (Verified 08/26/18 14:27) FEVER AND PUT ME IN THE BED Medications to take at Discharge Albuterol IH (ProAir) [Proair Hfa] 1 - 2 puff INHALATION Q6H PRN PRN 10/19/14 Ascorbic Acid [Vitamin C] 500 mg PO DAILY@0800 10/19/14 [place]-3S/Dha/Epa/Fish Oil/D3 [Fish Wyq-Vqyim-4-Vit D Softgel] 1 each PO DAILY 10/19/14 Alendronate Sodium [Fosamax] 70 mg PO TH 04/29/17 Multivitamins,Therapeutic [Multivitamin] 1 tablet PO DAILY 04/29/17 Acetaminophen [Tylenol] 325 - 650 mg PO Q6H PRN PRN 08/26/18 Calcitriol [Rocaltrol] 0.25 mcg PO DAILY 08/26/18 Carvedilol 3.125 mg PO BIDCM 08/26/18 Cephalexin [Keflex] 1,000 mg PO TID 08/26/18 Furosemide [Lasix] 80 mg PO DAILY 08/26/18 Acetaminophen [Tylenol] 1,000 mg PO TID #30 tablet 08/28/18 Apixaban [Eliquis] 5 mg PO BID #30 tablet 08/28/18 Ensure Enlive 120 ml PO 4X/DAY #120 liquid 08/28/18 The following prescriptions were given: Apixaban [Eliquis] 5 mg PO BID #30 tablet Acetaminophen [Tylenol] 1,000 mg PO TID #30 tablet Ensure Enlive 120 ml PO 4X/DAY #120 liquid Primary Care Physician: Herve Mcfadden MD [Primary Care Provider] - Please follow up with your Primary Care Physician in: within 2 weeks Test Results: Test results from this visit will be discussed in further detail at your follow-up appointment, if applicable. Proposed Discharge Date: 08/28/18
--- NOTE | 2018-08-28 08:39 | DCINST_ITS ---
- Discharge Diagnoses Current Active Problems: Current Active and Chronic Problems Left leg cellulitis (Acute) Right leg DVT (Acute) Osteoporosis (Acute) Reason(s) for Visit for Discharge Instructions: Left leg swelling You will use the following diet at home:: Cardiac Your food should be the consistency of: Regular Your liquids should be the consistency of: Regular/Thin Discharge Activity: Return to Normal Activity Additional Instructions: Complete your antibiotics at home. Watch your salt intake- low salt diet. Restrict your fluid intake. Continue to take all your medications. Continue to elevate your left leg. Continue to remain active. Allergies/Adverse Reactions: Allergies Sulfa (Sulfonamide Antibiotics) Allergy (Verified 08/26/18 14:27) FEVER AND PUT ME IN THE BED Medications to take at Discharge Albuterol IH (ProAir) [Proair Hfa] 1 - 2 puff INHALATION Q6H PRN PRN 10/19/14 Ascorbic Acid [Vitamin C] 500 mg PO DAILY@0800 10/19/14 [place]-3S/Dha/Epa/Fish Oil/D3 [Fish Npg-Btypp-1-Vit D Softgel] 1 each PO DAILY 10/19/14 Alendronate Sodium [Fosamax] 70 mg PO TH 04/29/17 Multivitamins,Therapeutic [Multivitamin] 1 tablet PO DAILY 04/29/17 Acetaminophen [Tylenol] 325 - 650 mg PO Q6H PRN PRN 08/26/18 Calcitriol [Rocaltrol] 0.25 mcg PO DAILY 08/26/18 Carvedilol 3.125 mg PO BIDCM 08/26/18 Cephalexin [Keflex] 1,000 mg PO TID 08/26/18 Furosemide [Lasix] 80 mg PO DAILY 08/26/18 Acetaminophen [Tylenol] 1,000 mg PO TID #30 tablet 08/28/18 Apixaban [Eliquis] 5 mg PO BID #30 tablet 08/28/18 Ensure Enlive 120 ml PO 4X/DAY #120 liquid 08/28/18 The following prescriptions were given: Apixaban [Eliquis] 5 mg PO BID #30 tablet Acetaminophen [Tylenol] 1,000 mg PO TID #30 tablet Ensure Enlive 120 ml PO 4X/DAY #120 liquid Primary Care Physician: Herve Mcfadden MD [Primary Care Provider] - Please follow up with your Primary Care Physician in: within 2 weeks Test Results: Test results from this visit will be discussed in further detail at your follow- up appointment, if applicable. Proposed Discharge Date: 08/28/18
--- NOTE | 2018-08-28 08:45 | DS.PCM_ITS ---
Discharge Date and Diagnosis - Problem List Patient Problems: Active and Suspected Problems Left leg cellulitis (Acute) Right leg DVT (Acute) Osteoporosis (Acute) Date of Admission: 08/26/18 Date of Discharge: 08/28/18 - Primary Discharge Diagnosis Active and Suspected Problems Left leg cellulitis (Acute) Right leg DVT (Acute) - Secondary Discharge Diagnosis Chronic Problems Chronic CHF (Chronic) Acute pancreatitis (Chronic) Hospital Course and Treatment Imaging Results: Clinical Impression(s) from Imaging Studies Venous Duplex 08/26/18 17:07 IMPRESSION: 1. No new or expanding deep vein thrombosis. 2. Stable right mid posterior tibial vein deep vein thrombosis. 3. Exam limited due to patient tolerance to exam (limited compressibility). Electronically Signed: Reza Gonzales MD at 18:21 EST , Service support , None Operations: None Procedures: - - Doppler USG of lower legs Summary of Care Provided: 78 year old F with past medical history of metastatic breast cancer, ischemic cardiomyopathy, chronic systolic CHF, EF 40%, CAD, s/p pacemaker, osteoporosis, who was recently discharged on 08/05/18 after being admitted with severe sepsis secondary to left lower extremity cellulitis with Streptococcus bacteremia and Klebsiella UTI. Her management was as follows: 1. Acute cellulitis, status post failed outpatient therapy, was on oral Keflex. She was recently hospitalized with severe sepsis secondary to left lower extremity cellulitis with Streptococcus bacteremia and Klebsiella UTI, Doppler showed stable DVT in the right lower extremity. She was managed on IV cefazolin, elevation of leg. 2. Chronic systolic CHF, EF 40%, persistent leg edema, acute exacerbation ruled out with BNPep 74, managed initially on Lasix IV and discharged on home po lasix 3. DVT of the right lower extremity, on apixaban 4. Recent severe sepsis/streptococcal bacteremia/Klebsiella UTI, no signs of sepsis 5. Osteoporosis, on alendronate, calcitriol, continue same medications 6. Hypertension/CAD, on carvedilol Patient Problems: Active and Suspected Problems Left leg cellulitis (Acute) Right leg DVT (Acute) Osteoporosis (Acute) Subjective: Day of discharge, patient had no new complaints. She was eager to be discharged because she did not like the food in the hospital. Denied any dizziness or conchita rtness of breath. Objective: Physical Exam General: Alert, Oriented x3, Cooperative, No apparent distress HEENT: Atraumatic, PERRLA, EOMI, Normocephalic Oral: Moist Mucosa Neck: Supple, No JVD, Negative Carotid Bruits Lungs: Clear to auscultation, Normal air movement Cardiovascular: Regular rate, Regular Rhythm, Normal S1, Normal S2, No murmurs Abdomen: Bowel Sounds Present, Soft, Non Tender, Non-Distended Extremities: Edema - trace edema of right lower extremity, improved right leg erythema of ankle and lower leg with differential warmth and pedal edema +2, wrinkles of skin on legs. Skin: No rashes, No breakdown Musculoskeletal: No Tenderness to Palpation of Joints or Extremities Neurological: Cranial nerves II-XII grossly intact Psych/Mental Status: Normal Affect, Appropriate - Physical Exam Vital Signs Temp Pulse Resp BP Pulse Ox 98.0 F 69 16 123/67 H 98 08/28/18 07:45 08/28/18 07:45 08/28/18 07:45 08/28/18 07:45 08/28/18 07:45 Oxygen Delivery Method Room Air Weight: 89.5 kg Body Mass Index (BMI) 30.4 Intake and Output for Last 24 Hours 08/26/18 08/27/18 08/28/18 23:59 23:59 23:59 Intake Total 579 / 579 877 / 877 Output Total 400 / 400 Balance 579 / 579 477 / 477 Microbiology Past 72 Hours 08/27/18 13:05 C. difficile DNA Amplification - Final Stool Discharge Diet: Low fat/ Low Cholesterol, 2000 mg Sodium Diet Discharge Activity: Return to Normal Activity Home Medications: Medications to take at Discharge Albuterol IH (ProAir) [Proair Hfa] 1 - 2 puff INHALATION Q6H PRN PRN 10/19/14 Ascorbic Acid [Vitamin C] 500 mg PO DAILY@0800 10/19/14 [place]-3S/Dha/Epa/Fish Oil/D3 [Fish Fpg-[place]-0-Vit D Softgel] 1 each PO DAILY 10/19/14 Alendronate Sodium [Fosamax] 70 mg PO TH 04/29/17 Multivitamins,Therapeutic [Multivitamin] 1 tablet PO DAILY 04/29/17 Acetaminophen [Tylenol] 325 - 650 mg PO Q6H PRN PRN 08/26/18 Calcitriol [Rocaltrol] 0.25 mcg PO DAILY 08/26/18 Carvedilol 3.125 mg PO BIDCM 08/26/18 Cephalexin [Keflex] 1,000 mg PO TID 08/26/18 Furosemide [Lasix] 80 mg PO DAILY 08/26/18 Acetaminophen [Tylenol] 1,000 mg PO TID #30 tablet 08/28/18 Apixaban [Eliquis] 5 mg PO BID #30 tablet 08/28/18 Ensure Enlive 120 ml PO 4X/DAY #120 liquid 08/28/18 Following Prescrptions Were Given to Patient: Apixaban [Eliquis] 5 mg PO BID #30 tablet Acetaminophen [Tylenol] 1,000 mg PO TID #30 tablet Ensure Enlive 120 ml PO 4X/DAY #120 liquid Primary Care Physician: Herve Mcfadden MD [Primary Care Provider] - Please follow up with your Primary Care Physician in: within 2 weeks Disposition: Home Minutes spent on discharge:: 40 Patient Condition:: Stable Medical Necessity - Tobacco Use Smoking Status: Former smoker Tobacco Use: Cigarettes Meaningful Use Info Meaningful Use Diagnoses (Choose all that apply): None applicable Code Visit Inpatient E&M: 47494 Disch Hosp
[2018-08-28] MEDS: APIXABAN 5 MG TABLET PO (11:25)
[2018-08-28] MEDS: Calcitriol 0.25 MCG Capsule PO (11:26)
[2018-08-28 13:15] VITALS: BP 110/49; PULSE 78; RESP 16; TEMP 36.9; O2SAT 97
[2018-08-28] MEDS: Furosemide 40 MG Tablet PO (13:21)
--- NOTE | 2018-08-29 15:27 | CASEMGMT ---
RN CM Discharge Follow-up Phone Call: VICENTA: Annmarie Strata: 3 Call Date: 08/29/18 Discharge Date: 08/28/18 Time of Call: 1527 Duration: 1 min Admitting Diagnosis: Cellulitis left leg, DVT RN JOSÉ attempted to complete follow-up phone call after recent hospitalization. No answer, voice message left with return contact information.
== END 2018-08-28 13:30 | disposition home or self-care (01) | DRG 603 ==
LOC: ED 17:36 → MS3 17:39
PROVIDERS: Admitting Provider Internal Medicine; Emergency Provider Emergency Medicine; Family Provider Family Medicine; PCP Family Medicine; Visit Provider Internal Medicine
DX: L03.116 Cellulitis of left lower limb (principal); C79.51 Secondary malignant neoplasm of bone; I82.401 Acute embolism and thrombosis of unspecified deep veins of right lower extremity; I50.22 Chronic systolic (congestive) heart failure; Z85.3 Personal history of malignant neoplasm of breast; M81.0 Age-related osteoporosis without current pathological fracture; I25.10 Atherosclerotic heart disease of native coronary artery without angina pectoris; I11.0 Hypertensive heart disease with heart failure; R53.81 Other malaise; I25.5 Ischemic cardiomyopathy; Z95.0 Presence of cardiac pacemaker; Z87.891 Personal history of nicotine dependence; Z79.01 Long term (current) use of anticoagulants
CPT/HCPCS: 36415; 80048; 82962; 83880; 85025; 87493; 93970; 97161; 97165; 97802; 99282; J7030; J7040; A4216; J1940

== ENCOUNTER 2019-07-20 11:51 | Observation (INO) | payer MEDICARE, MEDICAID, SELFPAY ==
[2018-08-26 18:25] VITALS: BMI 30.4
[2019-07-20 11:54] VITALS: BP 123/68; PULSE 86; RESP 17; TEMP 36.8; O2SAT 98; BMI 32.5
--- NOTE | 2019-07-20 12:42 | VDLE_ITS ---
Reason For Study: swelling Procedure LEFT Exam performed portable in ED. GSV is normal. The exam was of fair technical quality due CFV is compressible, spontaneous, phasic, to pain. competent, and demonstrates normal A preliminary report was called and/or faxed augmentation. to Rashaun SUAZO. POP V is compressible, spontaneous, phasic, competent and demonstrates normal augmentation. T/P Trunk is compressible. PTV is compressible. LT PerV is compressible. FV is spontaneous, phasic, competent and demonstrates normal augmentation. PT unable to tolerate compressions of FV due to leg pain and tenderness. Interpretation Summary Deep veins of the left lower extremity are patent and compressible segmentally. There is no evidence of left lower extremity deep vein thrombosis. Valvular competence appears intact within the proximal deep venous system on the left . The left great saphenous vein appears patent and compressible segmentally. Ordering Physician: Malik Robles Performed By: Boom Metz RVT
--- NOTE | 2019-07-20 12:44 | ED.DCSUM_ITS ---
History of Present Illness Chief Complaint: Cellulitis Narrative: Patient states that for the past several days left leg is been increasingly swollen and red. She has a history of streptococcal cellulitis in that leg. She states that it originally started draining some clear to white fluid and now is yellow to green. She denies any fevers. She states they recently decreased her Eliquis due to nosebleeds. She denies any trauma to the leg. Prior DVT in the right leg. Known history of CHF. Past Medical History - Allergies and Home Meds Allergies/Adverse Reactions: Allergies Sulfa (Sulfonamide Antibiotics) Allergy (Verified 07/20/19 11:53) FEVER AND PUT ME IN THE BED Primary Care Physician: Herve Mcfadden MD [Primary Care Provider] - Surgical History: hysterectomy, mastectomy Smoking Status: Former smoker - Family History Maternal Family History: Reports: Heart Disease, Hypertension Paternal Family History: Reports: Heart Disease Review of Systems General: Denies: Chills, Fever, Sweats Eyes: Denies: Visual changes - bilaterally, Diplopia ENT: Denies: Rhinorrhea, Sore throat Cardiovascular: Denies: Chest pain, Palpitations, Heart racing Respiratory: Denies: Dyspnea, Cough, Sputum, Dyspnea on exertion, Orthopnea Gastrointestinal: Denies: Abdominal pain, Nausea, Vomiting, Diarrhea, Melena, Hematochezia Genitourinary: Denies: Dysuria, Hematuria, Frequency Musculoskeletal: Reports: Swelling. Denies: Back pain, Extremity Pain Skin: Reports: Rash. Denies: Abscess, Abrasions, Wounds Neurological: Denies: Headache, Weakness, Numbness Psych: Denies: Depression, Anxiety, Suicidal thoughts, Suicidal ideations Endocrine: Denies: Polyuria, Polydipsia, Heat intolerance Hematologic: Reports: Easy bruising, Easy bleeding. Denies: Lymphadenopathy Allergy: Denies: Uticaria, Swelling of the mouth, Swelling of the tongue Physical Exam Vital Signs/Narrative: Vital Signs Temp Pulse Resp BP Pulse Ox 07/20/19 11:54 98.2 F 86 17 123/68 H 98 Inital Vital Signs reviewed: Yes General: Well nourished, Well developed, No Acute Distress Head: Normocephalic, Atraumatic Eyes: Perrl, EOMI ENT: Moist mucous membranes, No rhinorrhea Neck: Supple, Nontender Cardiovascular: Regular rate, Regular rhythm, No murmurs Respiratory: No distress, CTA bilaterally, Chest nontender Abdomen: Soft, Nontender, Nondistended, Normal bowel sounds Back: Nontender, Normal Inspection Extremities: Nontender, Edema - Left greater than right leg swelling. Left leg shows erythema both light red and a more dark purplish red area particularly laterally and anterior on the leg. There is weeping serosanguineous fluid. I do not appreciate any abscess. Skin: Normal color, No rash Neurological: Alert, Oriented x3, Cranial nerves II-XII grossly intact, Normal Strength, Normal Sensation Psychological: Normal affect, Normal Mood Diagnostic/Tx/Re-eval - Medical Decision Making Plan is to give the patient 80 of Lasix and Ance[facility] will admit her for observation. Dr. Farr is admitting. ED Disposition - Plan for ED Patient: Disposition: Acute Care Hospital [facility] Diagnosis: Lymphedema, Left leg cellulitis Referrals: Herve Mcfadden MD [Primary Care Provider] -
[2019-07-20 13:05] LABS: Absolute Lymphocyte Count 0.91 X10^3/uL (0.83-4.51); Absolute Neutrophil Count 3.9 X10^3/uL (2.0-7.7); Basophil# 0.04 X10^3/uL; Basophil% 0.7 % (0-1); Eosinophil# 0.29 X10^3/uL; Eosinophils% 5.1 % (0-5); Hematocrit 34.4 % (37-47); Hemoglobin 10.6 g/dL (12.0-15.0); Lymphocyte # 0.91 X10^3/ul (4.0); Lymphocyte % 15.9 % (19-41); Mean Corp Hgb Conc 30.8 g/dL (32-36); Mean Corpuscular Hgb 28.1 pg (27.0-32.0); Mean Corpuscular Volume 91.2 fL (81-99); Mean Platelet Vol. 8.5 fl (6.2-12.0); Monocyte# 0.57 X10^3/uL; Monocyte% 9.9 % (0-10); NRBC Flagged by Analyzer 0 % (0-5); Neutrophil % 67.9 % (47-70); Platelet Count 192 K/mm3 (150-450); RBC Distribution Width CV 15.6 % (11.6-14.6); RBC Distribution Width SD 52.2 fl (35.1-43.9); Red Blood Count 3.77 M/mm3 (4.2-5.4); White Blood Count 5.7 K/mm3 (4.4-11.0)
[2019-07-20 13:11] LABS: Erythrocyte Sedimentation Rate 23 mm/hr (0-30)
[2019-07-20 13:12] LABS: International Normalized Ratio 1.2; Prothrombin Time (Protime)PT. 14.6 SECONDS (11.7-14.9)
[2019-07-20 13:13] LABS: Partial Thromboplast Time 31.4 Seconds (24.1-36.2)
[2019-07-20 13:24] LABS: ALB/GLOB Ratio 0.9 RATIO (0.9-2.4); AST(SGOT) 21 U/L (15-37); Alanine Aminotransfer ALT/SGPT 25 U/L (13-56); Albumin, Serum 3.4 g/dL (3.2-5.0); Alkaline Phosphatase 94 U/L (45-117); Anion Gap 5 (5-15); BUN 20 mg/dL (7-18); Calcium,Total 8.9 mg/dL (8.5-10.1); Chloride 104 mmol/L (98-107); Creatinine, Serum 1.11 mg/dL (0.55-1.02); EST Glomerular Filtration Rate 50 mL/min (>60); Est Glom Filt Rate - Afr Amer 61 mL/min (>60); Estimated Creatinine Clearance 42.24 ml/min; Globulin 3.8 g/dL (2.2-4.2); Glucose 105 mg/dL (74-106); Potassium 3.5 mmol/L (3.5-5.1); Protein, Total 7.2 g/dL (6.4-8.2); Sodium Level 141 mmol/L (136-145)
[2019-07-20 13:25] LABS: Lactic Acid 1.2 mmol/L (0.4-1.9)
[2019-07-20 13:37] LABS: BNP,B-Type NATRIURETIC PEPTIDE 333.9 pg/mL (0-100)
--- NOTE | 2019-07-20 14:37 | HP.PCM_ITS ---
Problem List (1) Left leg cellulitis Status: Acute (2) Chronic acquired lymphedema Status: Chronic (3) Obesity (BMI 30.0-34.9) Status: Chronic (4) HTN (hypertension) Status: Chronic Qualifiers: Hypertension type: essential hypertension Qualified Code(s): I10 - Essential (primary) hypertension (5) HLD (hyperlipidemia) Status: Chronic Qualifiers: Hyperlipidemia type: unspecified Qualified Code(s): E78.5 - Hyperlipidemia, unspecified (6) CAD (coronary artery disease) Status: Chronic Qualifiers: Coronary Disease-Associated Artery/Lesion type: unspecified vessel or lesion type [place] vs. transplanted heart: unspecified whether [place] or transplanted heart Associated angina: angina presence unspecified Qualified Code(s): I25.10 - Atherosclerotic heart disease of [place] coronary artery without angina pectoris (7) Former tobacco use Status: Chronic (8) Chronic CHF Status: Chronic Qualifiers: Heart failure type: systolic Qualified Code(s): I50.22 - Chronic systolic (congestive) heart failure History of Present Illness Date of Admission: 07/20/19 Chief Complaint: LLE pain, erythema, fall ~ 1 week prior. The patient is a 79 y/o F w/ PMHx: CKD stage III, Chronic normocytic anemia, Former Tobacco use, Chronic Systolic CHF, Chronic BL LE Lymphedema, Hx DVT on eliquis, Obesity, HTN, HLD, CAD without PCI who presents to the [facility] ED on 07/20/18 with history of falling over a chair ~ 1 week prior, notes she fell over a computer chair and has had dull aching discomfort in her R shoulder, worse with use and L anterior whitmore abrasion with eventual onset erythema, increased edema to the LLE with no fevers or chills prompting eventual ED evaluation, especially per son as he had noted some seeping yellow material from her LLE. She does note that she has been out of at least her spironolactone for 1 week. In the ED work-up included T 98.2, heart rate 75, BP 110/57, respiratory rate 16, 99% on room air, CBC with WBC 5.7, hemoglobin 10.6, platelet 192 without market left shift, unremarkable coags, CMP with BUN/creatinine 20/1.11, CRP 16.6, BNP 333.9, DVT ultrasound performed in the ED and was noted to be negative of the left lower extremity. In the ED patient administered 80 mg IV Lasix x1 as well as Ancef therapy. Past Medical History Past Medical History (Chronic Problems): Chronic Problems Chronic acquired lymphedema (Chronic) Obesity (BMI 30.0-34.9) (Chronic) HTN (hypertension) (Chronic) HLD (hyperlipidemia) (Chronic) CAD (coronary artery disease) (Chronic) Former tobacco use (Chronic) Chronic CHF (Chronic) Acute pancreatitis (Chronic) Allergies Sulfa (Sulfonamide Antibiotics) Allergy (Verified 07/20/19 11:53) FEVER AND PUT ME IN THE BED Home Medications: Ambulatory Orders Medication Instructions Recorded Albuterol IH (ProAir) [Proair Hfa] 1 - 2 puff INHALATION Q6H PRN PRN 10/19/14 Ascorbic Acid [Vitamin C] 500 mg PO DAILY@0800 10/19/14 [place]-3S/Dha/Epa/Fish Oil/D3 [Fish 1 each PO DAILY 10/19/14 Djn-Sumqn-9-Vit D Softgel] Alendronate Sodium [Fosamax] 70 mg PO TH 04/29/17 Multivitamins,Therapeutic 1 tablet PO DAILY 04/29/17 [Multivitamin] Acetaminophen [Tylenol] 325 - 650 mg PO Q6H PRN PRN 08/26/18 Calcitriol [Rocaltrol] 0.25 mcg PO DAILY 08/26/18 Carvedilol 3.125 mg PO BIDCM 08/26/18 Furosemide [Lasix] 80 mg PO DAILY 08/26/18 Apixaban [Eliquis] 5 mg PO BID #30 tablet 08/28/18 Ensure Enlive 120 ml PO 4X/DAY #120 liquid 08/28/18 Surgical History: hysterectomy, mastectomy, - - ICD, hysterectomy, appendectomy, cholecystectomy, mastectomy. 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 Tobacco Use: Non-smoker Alcohol: None Drugs: None - *Family History Maternal History Items: Cancer, Heart Disease, Hypertension Paternal History Items: Cancer, Heart Disease Review of Systems Constitutional: Reports: Malaise, Weakness, Fatigue. Denies: Anorexia, Chills, Fever, Weight Change HEENT: Denies: Head Aches, Sinus Congestion, Sinus Drainage Cardiovascular: Denies: Chest Pain, Palpitations Respiratory: Denies: Cough, Shortness of breath at rest, Sputum production Gastrointestinal: Denies: Abdominal Pain, Nausea, Vomiting Genitourinary: Denies: Dysuria Musculoskeletal: Reports: Back Pain, Joint Pain, Shoulder Pain. Denies: Joint Tenderness Skin: Reports: Skin Changes. Denies: Rash, Wounds Neurological: Denies: Numbness, Tingling, Focal weakness Psychiatric: Denies: Anxiety, Depression, Homicidal Ideations, Suicidal Ideations Hematologic/ Lymphatic: Reports: Easy Bruising, Easy Bleeding VTE Information - Inpt Only VTE Present on Admission: No VTE Mechan Device Prophylaxis: None VTE Pharm Prophylaxis ordered?: No Reason prophylaxis not ordered:: Treatment Not Indicated - We will continue patient home Eliquis regimen. Subjective: Seated upright in the ED bed, irritable, notes some discomfort to the right shoulder and left lower extremity, primarily with palpation. Objective: Physical Examination: General: awake, alert, oriented x 3 and cooperative, seated upright in the ED bed, irritable, notes discomfort to the right shoulder and left lower extremity. Skin: normal color, turgor, no icterus, cyanosis except noted bilateral lower extremity chronic venous stasis skin changes with acute left lower extremity worsened lymphedema, pitting 3+ ankle to distal whitmore, erythematous region where patient had a fall with abrasion, currently no serous drainage although family had noted yellow drainage prior, tender to palpation, warm to touch. HEENT: AT/NC, EOMI, PERRLA, MMM, no carotid bruits or JVD noted. Lungs: CTA bilaterally, moderate effort, or it decrease BL bases, no rales, ronchi or wheezing. Heart: Regular rate and rhythm; no gallop, rub audible. Abdomen: soft, obese, NTTP, ND, normal BS, no HSM. Extremities: no cyanosis, clubbing, bilateral lower extremity chronic lymphedema with acute as noted left lower extremity increased edema and skin changes as noted above. Neurological: patient awake, alert, oriented x 3; cognitive function intact; pupils equally reactive to light and accomodation; cranial nerves II-XII grossly normal, moving all 4 extremities, no focal deficits, strength moderately global decreased secondary to acute presentation and underlying comorbidities. Psychiatric: affect appears irritable, no acute evidence of depressive or anxiety feelings. - Physical Exam Vitals/I&O's: Vital Signs Temp Pulse Resp BP Pulse Ox 98.2 F 86 17 123/68 H 98 07/20/19 11:54 07/20/19 11:54 07/20/19 11:54 07/20/19 11:54 07/20/19 11:54 Oxygen Delivery Method Room Air Weight: 220 lb 3.869 oz Body Mass Index (BMI) 32.5 Laboratory Results 07/20/19 12:53: WBC 5.7, RBC 3.77 L, Hgb 10.6 L, Hct 34.4 L, MCV 91.2, MCH 28.1, MCHC 30.8 L, RDW Std Deviation 52.2 H, RDW Coeff of [place] 15.6 H, Plt Count 192, MPV 8.5, Immature Gran % (Auto) 0.500, Neut % (Auto) 67.9, Lymph % (Auto) 15.9 L , [place] % (Auto) 9.9, Eos % (Auto) 5.1 H, Baso % (Auto) 0.7, Absolute Neuts (auto) 3.9, Absolute Lymphs (auto) 0.91, Nucleated RBC % 0, ESR 23 07/20/19 12:53: PT 14.6, INR 1.2, APTT 31.4 07/20/19 12:53: Sodium 141, Potassium 3.5, Chloride 104, Carbon Dioxide 32.0, Anion Gap 5, BUN 20 H, Creatinine 1.11 H, Estim Creat Clear Calc 42.24, Est GFR (MDRD) Af Amer 61, Est GFR (MDRD) Non-Af 50 L, BUN/Creatinine Ratio 18.0, Glucose 105, Calcium 8.9, Total Bilirubin 0.50, AST 21, ALT 25, Alkaline Phosphatase 94, C-React Prot Ext Range 16.60 H, Total Protein 7.2, Albumin 3.4, Globulin 3.8, Albumin/Globulin Ratio 0.9 07/20/19 12:53: Lactic Acid 1.2 07/20/19 12:53: B-Natriuretic Peptide 333.9 H Assessment/Plan All Active Problems Left leg cellulitis (Acute) Right leg DVT (Acute) Osteoporosis (Acute) Severe sepsis (Acute) The patient is a 79 y/o F w/ PMHx: CKD stage III, Chronic normocytic anemia, Former Tobacco use, Chronic Systolic CHF, Chronic BL LE Lymphedema, Hx DVT on eliquis, Obesity, HTN, HLD, CAD without PCI who presents to the [facility] ED on 07/20/18 with history of falling over a chair ~ 1 week prior, notes she fell over a computer chair and has had dull aching discomfort in her R shoulder, worse with use and L anterior whitmore abrasion with eventual onset erythema, increased edema to the LLE with no fevers or chills prompting eventual ED evaluation, especially per son as he had noted some seeping yellow material from her LLE. 1. Left Lower Extremity Cellulitis complicated by acute on chronic lymphedema: Will admit to [facility], maintain on IV Ancef, will request wound RN evaluation to assist in education of patient and family as chronic ongoing issue, sleeps upright in a chair, does not offload posterior either as has a stage I decubitus ulcer and despite continued attempts for education does still appear not to understand, plan repeat CBC in AM, continue affected extremity elevation above heart when seated and in bed, monitor erythema outline with VS checks. 2. Recent mechanical fall with right shoulder discomfort, left lower extremity abrasion: Continue treatment as noted #1, will obtain right shoulder plain film, PT/OT/case management consultations for discharge planning. PRN oral and IV pain regimen. 3. Chronic systolic CHF: Most recent echo noted with EF 40%, s/p prior AICD, as noted initiating IV diuretic for severity of bilateral lower extremity, left greater than right lymphedema with acute cellulitic infection to the left lower extremity with snug Jeff wraps and elevation, resume oral therapy likely in a.m. patient is not on statin, continue Coreg, continue spironolactone once dose clarified, not on JEFF inhibitor or ARB either per current list but clarifying. 4. Hypertension: As noted on IV Lasix currently, transition back to oral likely in a.m., coreg and spironolactone once dose verified, PRN IV hydralazine. 5. Hyperlipidemia: Previously on statin therapy, notes this was discontinued but unclear etiology. 6. CAD: Nonobstructive, no PCI history, continue Eliquis, Coreg, not on statin therapy, defer to outpatient. 7. Chronic Kidney Disease Stage III: Admission BUN/Cr 20/1.11, baseline renal function 0.8-1, repeat BMP in AM especially given IV Lasix administration. 8. Obesity: Weight loss and lifestyle changes encouraged, nutrition consulted. 9. Chronic normocytic anemia: Admission hemoglobin 10.6, stable from prior, con tinue outpatient evaluation and treatments as needed. 10. History of DVT: We will continue patient home Eliquis regimen. 11. Former tobacco use: Encouraged continued tobacco cessation. 12. DVT prophylaxis: We will continue patient home Eliquis regimen. As noted using snug Jeff wraps. 13. Full code. Code Visit OBSV E&M: 18903 Initial observation care L3
[2019-07-20 14:42] VITALS: BP 110/57; PULSE 75; PULSE 82; RESP 16; RESP 20; TEMP 36.8; O2SAT 94; O2SAT 99
--- NOTE | 2019-07-20 14:50 | NURSING ---
MED SURG LLE CELLULITIS, LYMPHEDEMA WHITE
[2019-07-20 14:54] VITALS: BMI 32.5
[2019-07-20] MEDS: Furosemide 100 MG/10 ML Vial 80 MG IV (14:56)
[2019-07-20 15:36] VITALS: BMI 33.2
--- NOTE | 2019-07-20 15:46 | RAD_ITS ---
STUDY: X-RAY - RIGHT SHOULDER REASON FOR EXAM: Female, 79 years old. RT SHOULDER PAIN, HX OF BONE METS TECHNIQUE: 2 view(s) of the shoulder. COMPARISON: None. FINDINGS: Narrowed glenohumeral articulation. Spurring of the acromioclavicular joint. Normal acromion. No lytic or sclerotic bony lesions. Normal humeral head and visualized proximal humerus. Surgical clips in the right axilla. Normal visualized pulmonary apex. RAD/Shoulder min 2 Views IMPRESSION: Degenerative changes. No evidence for acute fracture. No definitive evidence for bone metastasis. Bone scan or MRI would be helpful for further evaluation if indicated Electronically Signed: Jordan Figueroa MD at 17:15 EST , Service support ,
[2019-07-20 16:11] LABS: Magnesium 2.3 mg/dL (1.6-2.6)
[2019-07-20 16:13] VITALS: BP 100/44; PULSE 72; RESP 16; TEMP 36.6; O2SAT 98
[2019-07-20] MEDS: Acetaminophen 325 MG Tablet 650 MG PO ×2 (16:21→22:57)
[2019-07-20] MEDS: Cefazolin 1 GM/50 ML BAG IV ×2 (16:21→22:58)
[2019-07-20] MEDS: Menthol/Lanolin/Calamine/Znox 113 GM Tube 1 APPLIC TOPICAL ×2 (17:51→22:57)
--- NOTE | 2019-07-20 18:02 | NURSING ---
pt pillow and acewrap on right leg
[2019-07-20 22:15] VITALS: O2SAT 96
[2019-07-20 22:50] VITALS: BP 112/50; PULSE 77; RESP 20; TEMP 37.1; O2SAT 96
[2019-07-20] MEDS: APIXABAN 5 MG TABLET PO (22:57)
[2019-07-21] MEDS: HYDROcodone Bitartrate/Apap 5/325 Tablet PO (01:11)
[2019-07-21] MEDS: MELATONIN 3 MG TABLET PO (01:11)
[2019-07-21 05:21] VITALS: BP 100/52; PULSE 73; RESP 16; TEMP 36.8; O2SAT 97
[2019-07-21] MEDS: Cefazolin 1 GM/50 ML BAG IV (05:24)
[2019-07-21 07:55] VITALS: O2SAT 95
[2019-07-21 08:24] VITALS: BP 109/52; PULSE 72; RESP 18; TEMP 36.4; O2SAT 98
[2019-07-21] MEDS: Calcitriol 0.25 MCG Capsule PO (08:26)
[2019-07-21] MEDS: Acetaminophen 325 MG Tablet 650 MG PO (08:26)
[2019-07-21] MEDS: Menthol/Lanolin/Calamine/Znox 113 GM Tube 1 APPLIC TOPICAL (08:27)
[2019-07-21] MEDS: Furosemide 100 MG/10 ML Vial 80 MG IV (08:27)
[2019-07-21] MEDS: APIXABAN 5 MG TABLET PO (08:27)
[2019-07-21] MEDS: Carvedilol 3.125 MG TABLET PO (08:27)
[2019-07-21] MEDS: 0.9% Saline Lock 10 ML Syringe IV (08:35)
--- NOTE | 2019-07-21 10:14 | PCM.PROGNOTE ---
<Adriana Toscano - Last Filed: 07/21/19 10:41> Subjective: Patient reports mild nose bleed following Eliquis this morning. She states she only takes a half a tab at home and is currently ordered full dose. She denies fever, chills. Denies left lower extremity pain. Complains about Lasix giving her a headache and causing her to be up to the bathroom frequently. - Physical Exam Vitals/I&O's: Vital Signs Temp Pulse Resp BP Pulse Ox 97.6 F L 72 18 109/52 L 98 07/21/19 08:24 07/21/19 08:24 07/21/19 08:24 07/21/19 08:24 07/21/19 08:24 Oxygen Delivery Method Room Air Weight: 212 lb Body Mass Index (BMI) 33.2 Intake and Output for Last 24 Hours 07/19/19 07/20/19 07/21/19 23:59 23:59 23:59 Intake Total 420 / 420 100 / 100 Output Total 1950 / 1950 250 / 250 Balance -1530 / -1530 -150 / -150 General: Alert, Oriented x3, Cooperative HEENT: Atraumatic, PERRLA, EOMI, Normocephalic Neck: Supple, No JVD, Negative Carotid Bruits Lungs: Clear to auscultation, Normal air movement Cardiovascular: Regular rate, Regular Rhythm, Normal S1, Normal S2, No murmurs Abdomen: Bowel Sounds Present, Soft, Non Tender, Non-Distended Extremities: No clubbing, No cyanosis, Edema - Bilateral lower extremities, left greater than right. Skin: - - Left lower extremity cellulitis, Jeff wrap in place. Musculoskeletal: No Tenderness to Palpation of Joints or Extremities Neurological: Cranial nerves II-XII grossly intact, Neuro grossly intact Psych/Mental Status: Normal Affect, Appropriate Laboratory Results 07/20/19 12:53: WBC 5.7, RBC 3.77 L, Hgb 10.6 L, Hct 34.4 L, MCV 91.2, MCH 28.1, MCHC 30.8 L, RDW Std Deviation 52.2 H, RDW Coeff of [place] 15.6 H, Plt Count 192, MPV 8.5, Immature Gran % (Auto) 0.500, Neut % (Auto) 67.9, Lymph % (Auto) 15.9 L, [place] % (Auto) 9.9, Eos % (Auto) 5.1 H, Baso % (Auto) 0.7, Absolute Neuts (auto) 3.9, Absolute Lymphs (auto) 0.91, Nucleated RBC % 0, ESR 23 07/20/19 12:53: PT 14.6, INR 1.2, APTT 31.4 07/20/19 12:53: Sodium 141, Potassium 3.5, Chloride 104, Carbon Dioxide 32.0, Anion Gap 5, BUN 20 H, Creatinine 1.11 H, Estim Creat Clear Calc 42.24, Est GFR (MDRD) Af Amer 61, Est GFR (MDRD) Non-Af 50 L, BUN/Creatinine Ratio 18.0, Glucose 105, Calcium 8.9, Total Bilirubin 0.50, AST 21, ALT 25, Alkaline Phosphatase 94, C-React Prot Ext Range 16.60 H, Total Protein 7.2, Albumin 3.4, Globulin 3.8, Albumin/Globulin Ratio 0.9 07/20/19 12:53: Lactic Acid 1.2 07/20/19 12:53: B-Natriuretic Peptide 333.9 H 07/20/19 12:53: Magnesium 2.3 Current Medications Acetaminophen (Tylenol) 650 mg PO Q6H PRN PRN PRN Reason: Non-cardiac pain (4-10/10) Last Admin: 07/21/19 08:26 Dose: 650 mg Documented by: Hydrocodone Bitart/Acetaminophen ([place] 5mg-325mg) 1 - 2 tablet PO Q6H PRN PRN PRN Reason: Pain Score 4-10/10 Last Admin: 07/21/19 01:11 Dose: 1 tablet Documented by: Al Hydroxide/Mg Hydroxide (Mylanta Ii) 15 - 30 ml PO Q4H PRN PRN PRN Reason: INDIGESTION Albuterol Sulfate (Ventolin Aerosols) 2.5 mg INHALATION Q2H PRN PRN PRN Reason: dyspnea, wheezing Apixaban (Eliquis) 5 mg PO BID [facility] Last Admin: 07/21/19 08:27 Dose: 5 mg Documented by: Calamine/Phenol (Calmoseptine Ointment) 1 applic TOPICAL 4X/DAY [facility]; Protocol Last Admin: 07/21/19 08:27 Dose: 1 applicatio Documented by: Calcitriol (Rocaltrol) 0.25 mcg PO DAILY [facility] Last Admin: 07/21/19 08:26 Dose: 0.25 mcg Documented by: Carvedilol (Coreg) 3.125 mg PO BIDCM [facility] Last Admin: 07/21/19 08:27 Dose: 3.125 mg Documented by: Furosemide (Lasix) 80 mg IV BID@1000,1800 [facility] Last Admin: 07/21/19 08:27 Dose: 80 mg Documented by: Glucagon () 1 mg IM .X1 PRN PRN Reason: Hypoglycemia Guaifenesin (Robitussin) 20 ml PO Q4H PRN PRN PRN Reason: COUGH Hydralazine HCl (Apresoline Iv) 10 mg IV Q4H PRN PRN PRN Reason: SBP > 160 Cefazolin Sodium () 1 gm in 50 mls @ 100 mls/hr IV Q8 [facility] Last Infusion: 07/21/19 05:55 Dose: Infused Documented by: Dextrose (Dextrose 10%-Water) 250 mls @ 999 mls/hr IV .Q16M PRN; Protocol PRN Reason: HYPOGLYCEMIA Magnesium Hydroxide (Milk Of Magnesia) 30 ml PO DAILY PRN PRN Reason: Constipation Melatonin (Melatonin) 3 mg PO QHS PRN PRN PRN Reason: INSOMNIA Last Admin: 07/21/19 01:11 Dose: 3 mg Documented by: Morphine Sulfate () 1 - 2 mg IV Q4H PRN PRN PRN Reason: Pain Score 1-10/10 Nutritional Formula (Lactose Free) (Ensure Enlive) 120 ml PO 4X/DAY [facility] Last Admin: 07/21/19 08:36 Dose: 120 ml Documented by: Ondansetron HCl (Zofran) 4 mg IV Q8H PRN PRN PRN Reason: NAUSEA/VOMITING Sodium Chloride () 10 - 40 ml IV UD PRN PRN Reason: SALINE FLUSH Last Admin: 07/21/19 08:35 Dose: 10 ml Documented by: Throat Lozenges (Cepacol Sore Throat Lozenge) 1 lozenge MUCOUS MEM Q2H PRN PRN PRN Reason: Sore throat or cough Medical Necessity - Tobacco Use Smoking Status: Former smoker - Patient quit cigarette tobacco usage approximately 30 years prior. Tobacco Use: Non-smoker Assessment/Plan All Active Problems Left leg cellulitis (Acute) Right leg DVT (Acute) Osteoporosis (Acute) Lymphedema (Acute) Left leg cellulitis (Acute) Severe sepsis (Acute) 1. Left lower extremity cellulitis complicated by acute on chronic lymphedema-continue IV cefazolin. Improving. Continue Jeff wraps bilateral lower extremities. Initiated on IV Lasix on admission, will discontinue and resume home oral regimen. 2. Recent mechanical fall with right shoulder pain-pain improved. Imaging without acute findings. PT/OT. PRN pain regimen. 3. Chronic systolic CHF status post AICD-echocardiogram July 2018 demonstrated an EF of 40%, mild to moderate global hypokinesis of the left ventricle, left atrium moderately enlarged, right atrium mildly enlarged. Continue home medication regimen. 4. Hypertension-stable, continue home carvedilol, spironolactone, Lasix regimen. 5. Hyperlipidemia-continue statin. 6. CAD-continue statin, beta-lana. 7. Chronic kidney disease stage III-stable, trend BMP. 8. Chronic normocytic anemia-stable, trend CBC. 9. Obesity-encouraged diet and lifestyle modifications. 10. History of DVT-on Eliquis. Home medication lists Eliquis 5 mg twice daily however patient reports she only takes 2.5 mg twice daily, will reduce dosing. 11. Former tobacco use-encouraged continued tobacco cessation. DVT prophylaxis- Eliquis This patient was seen by JHONNY Garcia under the supervision of Dr. Kennedy. <Guillermo Kennedy - Last Filed: 07/21/19 15:37> Subjective: Patient has redness in left leg. She also had mild nosebleed following Eliquis in the morning. Denies any fever or chills. Patient wants to go home as she could not sleep last night. Patient was advised to stay for 1 more night for further IV antibiotics. - Physical Exam Vitals/I&O's: Vital Signs Temp Pulse Resp BP Pulse Ox 97.6 F L 72 18 109/52 L 98 07/21/19 08:24 07/21/19 08:24 07/21/19 08:24 07/21/19 08:24 07/21/19 08:24 Oxygen Delivery Method Room Air Weight: 212 lb Body Mass Index (BMI) 33.2 Intake and Output for Last 24 Hours 07/19/19 07/20/19 07/21/19 23:59 23:59 23:59 Intake Total 420 / 420 100 / 100 Output Total 1950 / 1950 1250 / 1250 Balance -1530 / -1530 -1150 / -1150 General: Alert, Oriented x3, Cooperative HEENT: Atraumatic, PERRLA, EOMI, Normocephalic Neck: Supple, No JVD, Negative Carotid Bruits Lungs: Clear to auscultation, Normal air movement, No rhonchi, No wheeze, No rales Cardiovascular: Regular rate, Regular Rhythm, Normal S1, Normal S2, No murmurs Abdomen: Bowel Sounds Present, Soft, Non Tender, Non-Distended Extremities: No clubbing, No cyanosis, Capillary Refill Less than 3 Seconds, Edema Skin: No rashes, No breakdown, Rash Present - Redness present over left lower leg. No tenderness. Small scratch nereyda of nail on the left lower leg. No open ulcer. Musculoskeletal: No Tenderness to Palpation of Joints or Extremities, Arthritic Changes Neurological: Cranial nerves II-XII grossly intact, Deep Tendon Reflexes 2+/4 and Symmetrical, Neuro grossly intact Psych/Mental Status: Normal Affect, Appropriate Laboratory Results 07/20/19 12:53: Magnesium 2.3 Assessment/Plan This patient was seen in conjunction with Adriana PALMER. I have independently interviewed and examined the patient and reviewed pertinent history, examination findings, laboratory and plan of management. I have reviewed the note and agree with the documented findings with the few additional points. In brief, patient is admitted for left lower leg cellulitis complicated by acute on chronic lymphedema. Patient on IV cefazolin. Patient wants to go home and she signed AMA. Please see discharge summary for details. I have discussed my assessment with Adriana PALMER and orders have been reviewed.
--- NOTE | 2019-07-21 12:14 | NURSING ---
PT STATES WHEN SON GET HERE SHE IS LEAVING AMA
--- NOTE | 2019-07-21 12:25 | CASEMGMT ---
RN CM Assessment Presentation: LLE cellulitis Intro role of CM and purpose of RN CM assessment to patient in room. Pt is awake, alert but irritable and states she is going home today. Demographics, PCP and Pharmacy verified. Pt states she lives alone, but her son takes care of her. Pt also stated that she was leaving the hospital today no matter what. States I've signed my self out before and I will again.. RN CM offered emotional support, however pt is not very communicative. PCP: Dr. Mcfadden Specialists: Dr. Mena Preferred Pharmacy: [facility]: [facility] Prescription Benefit: yes LNOK: son Rhonda Khan Living Arrangements: Lives alone, but states she has 6 children. Son especially is able to assist her. Pt not very forthcoming with discussing how she is doing at home. Transportation: family drives DME: cane only. HHC/SNF: none per pt. Pt states i don't need anyone coming to my house. Anticipate would not be receptive to HHC SW Referral: yes. Pt states I have cancer everywhere now. May benefit from Palliative Care referral Patient DC goals: Home today DC PLAN: anticipate home. Flavio ALCANTARN RN ACM
--- NOTE | 2019-07-21 13:08 | NURSING ---
Pt states she is leaving AMA, explained to pt that MD wanted her to stay admitted and recieve more iv atb, explained risks of patient leaving. Pt voices understanding and states she doesn't care she isn't staying another night
--- NOTE | 2019-07-21 14:12 | PCM.DC.SUM ---
<Adriana Toscano - Last Filed: 07/21/19 14:28> Discharge Date and Diagnosis Date of Admission: 07/20/19 Date of Discharge: 07/21/19 - Primary Discharge Diagnosis 1. Left lower extremity cellulitis complicated by acute on chronic lymphedema 2. Recent mechanical fall with right shoulder pain 3. Chronic systolic CHF status post AICD 4. Hypertension 5. Hyperlipidemia 6. CAD 7. Chronic kidney disease stage III 8. Chronic normocytic anemia 9. Obesity 10. History of DVT 11. Former tobacco use - Secondary Discharge Diagnosis Chronic Problems Chronic acquired lymphedema (Chronic) Obesity (BMI 30.0-34.9) (Chronic) HTN (hypertension) (Chronic) HLD (hyperlipidemia) (Chronic) CAD (coronary artery disease) (Chronic) Former tobacco use (Chronic) Chronic CHF (Chronic) Acute pancreatitis (Chronic) Hospital Course and Treatment Imaging Results: Diagnostic Data Shoulder X-Ray 07/20/19 15:46 IMPRESSION: Degenerative changes. No evidence for acute fracture. No definitive evidence for bone metastasis. Bone scan or MRI would be helpful for further evaluation if indicated Electronically Signed: Jordan Figueroa MD at 17:15 EST , Service support , Consultations 07/20/19 15:46 Consult: Onc/Wound/director of sales and marketing Routine Comment: Reason for Consult:: Family and patient education coccyx care for decub, lymphedema Comments:: Talked at length, sleeps in chair, no off loading/comp Operations: None Procedures: None Summary of Care Provided: The patient is a 79 year old F admitted 07/20/19 due to left lower extremity pain and erythema. 1. Left lower extremity cellulitis complicated by acute on chronic lymphedema-IV cefazolin during admission. Continue Jeff wraps bilateral lower extremities. Initiated on IV Lasix on admission, will discontinue and resume home oral regimen. Patient refused further treatment and signed out AGAINST MEDICAL ADVICE. 2. Recent mechanical fall with right shoulder pain-pain improved. Imaging without acute findings. 3. Chronic systolic CHF status post AICD-echocardiogram July 2018 demonstrated an EF of 40%, mild to moderate global hypokinesis of the left ventricle, left atrium moderately enlarged, right atrium mildly enlarged. Continue home medication regimen. 4. Hypertension-stable, continue home carvedilol, spironolactone, Lasix regimen. 5. Hyperlipidemia-continue statin. 6. CAD-continue statin, beta-lana. 7. Chronic kidney disease stage III-stable, trend BMP. 8. Chronic normocytic anemia-stable, trend CBC. 9. Obesity-encouraged diet and lifestyle modifications. 10. History of DVT-on Eliquis. Home medication lists Eliquis 5 mg twice daily however patient reports she only takes 2.5 mg twice daily, will reduce dosing. 11. Former tobacco use-encouraged continued tobacco cessation. General: Alert, Oriented x3, Cooperative HEENT: Atraumatic, PERRLA, EOMI, Normocephalic Neck: Supple, No JVD, Negative Carotid Bruits Lungs: Clear to auscultation, Normal air movement Cardiovascular: Regular rate, Regular Rhythm, Normal S1, Normal S2, No murmurs Abdomen: Bowel Sounds Present, Soft, Non Tender, Non-Distended Extremities: No clubbing, No cyanosis, Edema - Bilateral lower extremities, left greater than right. Skin: - - Left lower extremity cellulitis, Jeff wrap in place. Musculoskeletal: No Tenderness to Palpation of Joints or Extremities Neurological: Cranial nerves II-XII grossly intact, Neuro grossly intact Psych/Mental Status: Normal Affect, Appropriate Patient seen and examined prior to discharge. Physical assessment as noted above. Patient signed out AGAINST MEDICAL ADVICE as noted above. This patient was seen by JHONNY Garcia under the supervision of Dr. Kennedy. - Physical Exam Vitals/I&O's: Vital Signs Temp Pulse Resp BP Pulse Ox 97.6 F L 72 18 109/52 L 98 07/21/19 08:24 07/21/19 08:24 07/21/19 08:24 07/21/19 08:24 07/21/19 08:24 Oxygen Delivery Method Room Air Weight: 212 lb Body Mass Index (BMI) 33.2 Intake and Output for Last 24 Hours 07/19/19 07/20/19 07/21/19 23:59 23:59 23:59 Intake Total 420 / 420 100 / 100 Output Total 1950 / 1950 1250 / 1250 Balance -1530 / -1530 -1150 / -1150 Laboratory Results 07/20/19 12:53: Magnesium 2.3 Home Medications: Medications to take at Discharge Albuterol IH (ProAir) [Proair Hfa] 1 - 2 puff INHALATION Q6H PRN PRN 10/19/14 Ascorbic Acid [Vitamin C] 500 mg PO DAILY@0800 10/19/14 Fertile-3S/Dha/Epa/Fish Oil/D3 [Fish Niw-Fylho-5-Vit D Softgel] 1 each PO DAILY 10/19/14 Alendronate Sodium [Fosamax] 70 mg PO WE 04/29/17 Multivitamins,Therapeutic [Multivitamin] 1 tablet PO DAILY 04/29/17 Acetaminophen [Tylenol] 325 - 650 mg PO Q6H PRN PRN 08/26/18 Calcitriol [Rocaltrol] 0.25 mcg PO DAILY 08/26/18 Carvedilol 3.125 mg PO BIDCM 08/26/18 Furosemide [Lasix] 80 mg PO DAILY 08/26/18 Apixaban [Eliquis] 5 mg PO BID #30 tablet 08/28/18 Ensure Enlive 120 ml PO 4X/DAY #120 liquid 08/28/18 Atorvastatin Calcium [Lipitor] 20 mg PO QHS 07/20/19 Spironolactone [Aldactone] 25 mg PO BID 07/20/19 Primary Care Physician: Herve Mcfadden MD [Primary Care Provider] - Disposition: Against Medical Advice Minutes spent on discharge:: 35 Patient Condition:: Fair Medical Necessity - Tobacco Use Smoking Status: Former smoker - Patient quit cigarette tobacco usage approximately 30 years prior. Tobacco Use: Non-smoker Meaningful Use Info Meaningful Use Diagnoses (Choose all that apply): None applicable <Guillermo Kennedy - Last Filed: 07/21/19 15:41> Discharge Date and Diagnosis - Secondary Discharge Diagnosis Chronic Problems Chronic acquired lymphedema (Chronic) Obesity (BMI 30.0-34.9) (Chronic) HTN (hypertension) (Chronic) HLD (hyperlipidemia) (Chronic) CAD (coronary artery disease) (Chronic) Former tobacco use (Chronic) Chronic CHF (Chronic) Acute pancreatitis (Chronic) Hospital Course and Treatment Consultations 07/20/19 15:46 Consult: Onc/Wound/director of sales and marketing Routine Comment: Reason for Consult:: Family and patient education coccyx care for decub, lymphedema Comments:: Talked at length, sleeps in chair, no off loading/comp Summary of Care Provided: This patient was seen in conjunction with OPERATOR VACUUMAdriana. I have independently interviewed and examined the patient and reviewed pertinent history, examination findings, laboratory and plan of management. I have reviewed the note and agree with the documented findings with the few additional points. In brief, patient is 79-year-old female was admitted with left lower leg cellulitis complicated with acute on chronic lymphedema. Patient has Jeff wrap bandage. Left leg was examined after Jeff wrap bandage removal. No open ulcer. Patient has a scratch sign. Patient was advised to stay in the hospital to continue IV cefazolin but she refused and signed AMA. Patient also has recent mechanical fall with right shoulder pain: Advised to follow-up with orthopedic. Other medical comorbidities as described above including chronic systolic heart failure status post AICD with EF 40% on recent echocardiogram in July 2018. On Eliquis for DVT and dosing reduced to 2.5 mg twice daily. I have discussed my assessment with Adriana PALMER and orders have been reviewed. [] Subjective: Please see progress note of today. - Physical Exam Vitals/I&O's: Vital Signs Temp Pulse Resp BP Pulse Ox 97.6 F L 72 18 109/52 L 98 07/21/19 08:24 07/21/19 08:24 07/21/19 08:24 07/21/19 08:24 07/21/19 08:24 Oxygen Delivery Method Room Air Weight: 212 lb Body Mass Index (BMI) 33.2 Intake and Output for Last 24 Hours 07/19/19 07/20/19 07/21/19 23:59 23:59 23:59 Intake Total 420 / 420 100 / 100 Output Total 1950 / 1950 1250 / 1250 Balance -1530 / -1530 -1150 / -1150 Laboratory Results 07/20/19 12:53: Magnesium 2.3 Code Visit Inpatient E&M: 94341 Disch Hosp
--- NOTE | 2019-07-21 14:38 | CASEMGMT ---
Social Work Note SW attempted to see pt regarding cancer diagnosis but pt left AMA. Madsion Romero MISSILE FACILITIES REPAIRER, LAN/WAN ENGINEER
== END 2019-07-21 13:10 | disposition left against medical advice (07) ==
LOC: ED 14:46 → MS3 15:03
PROVIDERS: Admitting Provider Family Medicine; Emergency Provider Emergency Medicine; Family Provider Family Medicine; PCP Family Medicine; Visit Provider Internal Medicine
DX: L03.116 Cellulitis of left lower limb (principal); I13.0 Hypertensive heart and chronic kidney disease with heart failure and stage 1 through stage 4 chronic kidney disease, or unspecified chronic kidney disease; I89.0 Lymphedema, not elsewhere classified; E66.9 Obesity, unspecified; E78.5 Hyperlipidemia, unspecified; I25.10 Atherosclerotic heart disease of native coronary artery without angina pectoris; N18.3 Chronic kidney disease, stage 3 (moderate); I50.22 Chronic systolic (congestive) heart failure; Z86.718 Personal history of other venous thrombosis and embolism; Z79.899 Other long term (current) drug therapy; Z79.01 Long term (current) use of anticoagulants; Z87.891 Personal history of nicotine dependence; Z68.33 Body mass index [BMI] 33.0-33.9, adult; Z95.810 Presence of automatic (implantable) cardiac defibrillator; M81.0 Age-related osteoporosis without current pathological fracture; S80.812A Abrasion, left lower leg, initial encounter; W18.39XA Other fall on same level, initial encounter; Y93.9 Activity, unspecified; Y92.9 Unspecified place or not applicable; M25.511 Pain in right shoulder; D64.9 Anemia, unspecified; R04.0 Epistaxis
CPT/HCPCS: 73030; 80053; 83605; 83735; 83880; 85025; 85610; 85652; 85730; 86140; 87040; 93971; 96365; 96366; 96375; 96376; 97802; 99218; 99282; A4216; G0378; J1940

== ENCOUNTER 2020-12-27 08:56 | Outpatient (RCR) | payer MEDICARE, MEDICAID, SELFPAY ==
[2020-12-27 09:20] VITALS: BP 106/61; PULSE 81; RESP 18; TEMP 36.2; BMI 28.0
[2020-12-27 09:28] VITALS: BMI 28.0
== END 2021-01-15 23:59 ==
LOC: WC 08:56
PROVIDERS: PCP Family Medicine; Referring Provider Podiatrist Foot & Ankle Surgery; Visit Provider Nurse Practitioner Family
DX: Z00.00 Encounter for general adult medical examination without abnormal findings (principal)

== ENCOUNTER 2021-05-19 19:42 | Inpatient (IN) | payer MEDICARE, MEDICAID, SELFPAY ==
[2021-05-19] VITALS (9 sets, daily range): BP systolic 64–100; BP diastolic 35–70; PULSE 69–88; RESP 12–18; TEMP 35.7–35.9; O2SAT 94–100; BMI 22.8
--- NOTE | 2021-05-19 20:56 | EKG12_ITS ---
Test Reason : GEN ILL Blood Pressure : / mmHG Vent. Rate : 080 BPM Atrial Rate : 080 BPM P-R Int : 126 ms QRS Dur : 078 ms QT Int : 416 ms P-R-T Axes : 117 180 112 degrees QTc Int : 479 ms Electronic ventricular pacemaker Confirmed by HOMA GOODEN, CARLTON ([id number]), medical editor CEDRICK ROMO ([id number]) on 05/27/2021 8:57:16 AM Referred By: KRYSTAL Confirmed By:CARLTON LUTHER MD
--- NOTE | 2021-05-19 20:56 | RAD_ITS ---
STUDY: X-RAY CHEST REASON FOR EXAM: Female, 80 years old. Shortness of breath. TECHNIQUE: Single AP portable view of the chest. COMPARISON: 07/31/2018. FINDINGS: There is a decreased inspiratory effort. There bilateral pleural effusions and atelectasis. No new infiltrate is seen. Stable cardiomegaly with cardiac pacemaker. Normal mediastinum and brandon. Normal visualized pulmonary arteries. Normal visualized aortic arch and descending thoracic aorta. There are diffuse degenerative changes of the visualized thoracic spine. There is degenerative osteoarthritis of the bilateral shoulders. There is no demonstrated abnormality of the visualized soft tissue structures of the upper abdomen. RAD/Chest 1 View (Portable) IMPRESSION: 1. New bilateral pleural effusions and atelectasis. 2. Stable cardiomegaly with cardiac pacemaker. Electronically Signed: Dewayne Magaña DO at 21:17 EDT Tel [phone], Service support ,
--- NOTE | 2021-05-19 20:58 | EDS_ITS ---
HPI History of Present Illness Chief Complaint: General Illness Informant: family Narrative Narrative: Patient has breast cancer metastatic to the bone and is currently undergoing chemotherapeutic treatment for that. She is currently being treated for the second round of treatment with oral vancomycin for C. difficile colitis. She has been on this course of antibiotics for 11 or 12 days now. For the past week, she has been drinking very little fluids due to poor appetite and nausea and occasional dry heaving. She has pain all over her body, diffuse abdominal pain, she also complains of chest pain and shortness of breath, the patient is very ill and unable to provide detailed history and most of it comes from the son. Furthermore, she has edema in her legs that is not typical for her, and it has become fairly severe in the last several days. She has not passed out that we know of. Son states that she is a full code and everything is to be done. [facility] Medical History (Updated 05/20/21 @ 02:[address] Jerad Be MD) Breast cancer CAD (coronary artery disease) Chronic acquired lymphedema Chronic CHF HLD (hyperlipidemia) HTN (hypertension) Obesity (BMI 30.0-34.9) Osteoporosis Right leg DVT Home Medications albuterol sulfate [ProAir HFA] 1 - 2 puff INHALATION Q6H PRN PRN 10/19/14 [History Last Taken 07/19/19] acetaminophen [Tylenol] 325 - 650 mg PO Q6H PRN PRN 08/26/18 [History Last Taken 07/19/19] atorvastatin 20 mg PO QHS 07/20/19 [History Last Taken 07/19/19] Eliquis 2.5 mg PO BID 05/19/21 [History Last Taken Unknown] levothyroxine 25 mcg PO DAILY 05/19/21 [History Last Taken Unknown] metoprolol succinate 25 mg PO DAILY 05/19/21 [History Last Taken Unknown] potassium chloride 10 meq PO DAILY 05/19/21 [History Last Taken Unknown] torsemide 20 mg PO DAILY 05/19/21 [History Last Taken Unknown] Allergy/AdvReac Type Severity Reaction Status Date / Time Sulfa (Sulfonamide Allergy FEVER AND Verified 05/19/21 19:43 Antibiotics) PUT ME IN THE BED Social History Smoking Status: Former smoker ROS ROS ED Review of Systems ROS Unobtainable: other Details: Limited due to condition/acuity Constitutional Constitutional ED: Reports anorexia, body ache(s), fatigue, malaise and weakness; Denies chills or fever(s) Cardiovascular Cardiovascular: Reports chest pain; Denies palpitations Respiratory/Chest Respiratory/Chest: Reports cough and dyspnea Gastrointestinal Gastrointestinal: Reports abdominal pain, diarrhea, nausea and vomiting Musculoskeletal Musculoskeletal: Denies neck pain EXAM Physical Exam Const Vital Signs: 05/19/21 19:44 05/19/21 20:57 05/19/21 20:59 Temperature 96.2 F L Temperature Source Temporal Pulse Rate 69 80 Respiratory Rate 12 18 Blood Pressure 73/40 L 68/58 L Blood Pressure Mean 51 61 Pulse Ox 94 100 Oxygen Delivery Method Room Air Nasal Cannula Nasal Cannula Oxygen Flow Rate (L/min) 3 3 05/19/21 21:11 05/19/21 21:52 05/19/21 22:16 Temperature 96.6 F L Temperature Source Temporal Pulse Rate 80 80 81 Respiratory Rate 12 Blood Pressure 72/63 L 91/51 L 74/50 L Blood Pressure Mean 66 64 58 Pulse Ox 100 Oxygen Delivery Method Nasal Cannula Oxygen Flow Rate (L/min) 3 05/19/21 22:48 05/19/21 23:19 05/19/21 23:23 Temperature 96.6 F L 96.3 F L Temperature Source Temporal Temporal Pulse Rate 87 88 80 Respiratory Rate 16 14 15 Blood Pressure 64/35 L 89/61 L Blood Pressure Mean 44 70 Pulse Ox 98 95 Oxygen Delivery Method Nasal Cannula Nasal Cannula Oxygen Flow Rate (L/min) 3 3 05/19/21 23:54 05/20/21 00:53 05/20/21 01:08 Temperature 97 F L Temperature Source Temporal Pulse Rate 81 80 Respiratory Rate 22 H 22 H Blood Pressure 100/70 84/57 L 76/61 L Blood Pressure Mean 80 66 66 Pulse Ox 94 96 Oxygen Delivery Method Nasal Cannula Nasal Cannula Oxygen Flow Rate (L/min) 3 3 05/20/21 01:41 05/20/21 02:03 Temperature Temperature Source Pulse Rate 80 80 Respiratory Rate 12 12 Blood Pressure 143/97 H 160/110 H Blood Pressure Mean 112 126 Pulse Ox 98 96 Oxygen Delivery Method Nasal Cannula Nasal Cannula Oxygen Flow Rate (L/min) 3 3 Positive well nourished and well developed Constitutional Narrative: Ill-appearing General Appearance ED: well developed HEENT Reports moist mucous membranes normocephalic and atraumatic Eyes PERRL and EOMs intact bilaterally Neck full ROM and supple Resp normal respiratory effort and clear to auscultation bilaterally Resp Narrative: No respiratory distress. Exam limited due to patient not taking deep breaths due to being extremely generally weak. Cardio regular rate, regular rhythm and no murmurs Rate: Negative for tachycardic GI GI Narrative: Distended. Diffusely tender. No rebound tenderness. Auscultation: normoactive bowel sounds Palpation: soft Back/Spine normal to inspection Back/Spine Narrative: Limited exam due to very weak and not able to sit up Extremity Extremity Narrative: Pulses present but faint. General Extremety ED: Yes edema; Negative for tenderness General Extremity: edema bilateral lower extremity Details: moderate (Symmetric without tenderness. Signs of chronic stasis dermatitis bilaterally, worse on the left.) Neuro CN's II-XII intact bilaterally and no sensory deficits noted Sensorium / Orientation: awake and alert Motor Exam: general weakness Skin no rashes or lesions noted and no wounds MDM MDM MDM Narrative Medical decision making narrative: I discussed with the son that she is very ill, her age puts her at risk for given that her mean arterial pressure is less than 60 as she is about 60/40 while I am in the room. He understands this, and states everything is to be done for her possible to keep her alive. He understands this may include a central line. Initially, she was bolused with fluids, and a septic work-up was obtained in addition to a CT of the abdomen/pelvis given the possibility of severe C. difficile colitis here in addition to dehydration and multiple other possible coexistent acute medical issues including but not limited to pneumonia, [place], renal failure. She is initially given a liter bolus of IV fluids, at times her blood pressure would be 95-100, son states that 90s has been normal for her in the past couple months, and then the next blood pressure would be extremely low like 40 systolic, although the patient looks more alert and a little better than when she first arrived with blood pressures in the 60s and 70s. She was given another fluid bolus of a liter in case, and reevaluated. Her CT does not show any emergent complications of C. difficile colitis, although her labs, vital signs, and clinical appearance suggest she could be septic from it, or conversely, her symptoms and elevated lactate, acute renal/kidney injury, and transient hypotension are more related to dehydration. Cultures were obtained. She has recently taken her oral vancomycin. She has bilateral pleural effusions, this may be related to her cancer that is unknown as the son was unaware of these. She has RICKY presumably from dehydration, to the point of hyperkalemia at 6.1. Her EKG shows a paced rhythm which is wide so unable to determine if there are any acute changes from this potassium level or not, so she was given the full appropriate treatment for hyperkalemia including calcium gluconate, insulin, dextrose, and albuterol. Prior to the second liter being finished, her blood pressure when checked manually is 100/70, consistent with her improved symptoms and appearance. Nurses tried to get a second line on her, however she had a mastectomy on the right and her right upper extremity is not supposed to be used for IV fluids/medications. Repeat potassium is now ordered and is to be drawn and pending. Patient was recently admitted for her C. difficile couple weeks ago at [facility]. Her oncologist is in [place] and associated with [facility]. I discussed with patient and son CONTRERAS, neither one of them want to be transferred to [facility] or [facility] right now and prefer to stay here. I did speak with nephrology as well as the hospitalist, her potassium came down to the normal range on repeat. Her blood pressure improved significantly, to the 120s, then the 140s, now 160/110. We monitored her here in the emergency department, now that she is having pressures this good, we will admit to PCU. Lab Data Attestation: I reviewed the patient's lab results. Labs: Laboratory Results - last 24 hr 05/19/21 05/19/21 05/19/21 20:38 20:38 20:38 WBC 11.1 H RBC 2.80 L Hgb 8.6 L Hct 28.1 L MCV 100.4 H MCH 30.7 MCHC 30.6 L RDW Std Deviation 63.9 H RDW Coeff of Tyler 19.1 H Plt Count 137 L MPV 10.1 Immature Gran % (Auto) 0.500 Neut % (Auto) 86.3 H Lymph % (Auto) 8.8 L [place] % (Auto) 3.9 Eos % (Auto) 0.3 Baso % (Auto) 0.2 Absolute Neuts (auto) 9.6 H Absolute Lymphs (auto) 0.98 Nucleated RBC % 0.4 Sodium 129 L Potassium 6.1 H* Chloride 103 Carbon Dioxide 20.0 L Anion Gap 6 BUN 27 H Creatinine 2.51 H Estim Creat Clear Calc 17.73 Est GFR (MDRD) Af Amer 24 L Est GFR (MDRD) Non-Af 20 L BUN/Creatinine Ratio 10.8 Glucose 95 Lactic Acid 3.0 H* Calcium 8.1 L Total Bilirubin 1.40 H AST 38 H ALT 26 Alkaline Phosphatase 110 Troponin I High Sens 25 Total Protein 5.5 L Albumin 2.2 L Globulin 3.3 Albumin/Globulin Ratio 0.7 L Lipase 132 Urine Color Urine Clarity Urine pH Ur Specific [place] U Specif Grav (Refrac) Urine Protein Urine Glucose (UA) Urine Ketones Urine Occult Blood Urine Nitrite Urine Bilirubin Urine Urobilinogen Ur Leukocyte Esterase Urine RBC Urine WBC Ur Squamous Epith Cells Ur Transition Epith Cell Ur Renal Epithelial Cell Calcium Oxalate Crystal Uric Acid Crystals Triple Phos Crystals Other Crystals Amorphous Sediment Urine Bacteria Hyaline Casts Fine Granular Casts Coarse Granular Casts Waxy Casts RBC Casts WBC Casts Urine Mucus Urine Trichomonas Urine Yeast 05/19/21 05/19/21 05/20/21 21:30 22:15 01:05 WBC RBC Hgb Hct MCV MCH MCHC RDW Std Deviation RDW Coeff of [place] Plt Count MPV Immature Gran % (Auto) Neut % (Auto) Lymph % (Auto) [place] % (Auto) Eos % (Auto) Baso % (Auto) Absolute Neuts (auto) Absolute Lymphs (auto) Nucleated RBC % Sodium Potassium 4.9 Chloride Carbon Dioxide Anion Gap BUN Creatinine Estim Creat Clear Calc Est GFR (MDRD) Af Amer Est GFR (MDRD) Non-Af BUN/Creatinine Ratio Glucose Lactic Acid Calcium Total Bilirubin AST ALT Alkaline Phosphatase Troponin I High Sens Total Protein Albumin Globulin Albumin/Globulin Ratio Lipase Urine Color Cancelled Khushbu Urine Clarity Cancelled Sl. Cloudy Urine pH Cancelled 5.0 Ur Specific [place] Cancelled 1.020 U Specif Grav (Refrac) Cancelled Urine Protein Cancelled 30 H Urine Glucose (UA) Cancelled Normal Urine Ketones Cancelled 5 H Urine Occult Blood Cancelled 10 H Urine Nitrite Cancelled Negative Urine Bilirubin Cancelled 1 H Urine Urobilinogen Cancelled Normal Ur Leukocyte Esterase Cancelled 25 H Urine RBC Cancelled 0 SEEN Urine WBC Cancelled 0-5 SEEN Ur Squamous Epith Cells Cancelled 0-5 SEEN Ur Transition Epith Cell Cancelled Ur Renal Epithelial Cell Cancelled Calcium Oxalate Crystal Cancelled Uric Acid Crystals Cancelled Triple Phos Crystals Cancelled Other Crystals Cancelled Amorphous Sediment Cancelled Urine Bacteria Cancelled 0 SEEN Hyaline Casts Cancelled 50-100 SEEN Fine Granular Casts Cancelled Coarse Granular Casts Cancelled Waxy Casts Cancelled RBC Casts Cancelled WBC Casts Cancelled Urine Mucus Cancelled 0 SEEN Urine Trichomonas Cancelled Urine Yeast Cancelled Radiography Diagnostic Testing: Clinical Impression(s) from Imaging Studies Chest X-Ray 05/19/21 20:56 IMPRESSION: 1. New bilateral pleural effusions and atelectasis. 2. Stable cardiomegaly with cardiac pacemaker. Electronically Signed: Dewayne Magaña DO at 21:17 EDT Tel [phone], Service support , Abdomen/Pelvis CT 05/19/21 21:01 IMPRESSION: 1. Mild ascites. 2. Normal appearing colon. There are no findings suggestive of C. difficile infection. 3. Enlarged liver with probable left hepatic cyst. 4. Diffuse osseous metastases. 5. Anasarca. 6. Cardiomegaly with cardiac pacemaker. 7. Large bilateral pleural effusions. Electronically Signed: Dewayne Magaña DO at 21:58 EDT Tel [phone], Service support , EKG Initial EKG: Attestation: I personally reviewed and interpreted this EKG as follows: Interpretation: No Acute Injury Pattern and Paced Comments: Mixed right and left bundle branch block patterns. Artifact in some precordial leads. Prior EKG tracings: available for review Prior: Unchanged Critical Care Time Critical Care Time: Yes Critical care time (excluding procedures): 30-74 minutes (35 min), Including time spent:, Discussing w/Patient &/or Family/Personal Chef, Discussing w/Consultants, Arranging Admission or Transfer and Performing Direct Patient Care at Bedside Discharge Plan Dx/Rx/DC Orders Clinical Impression: RICKY (acute kidney injury), C. difficile colitis, Acute hyperkalemia, Bilateral pleural effusion, Transient hypotension Disposition Disposition: Acute Care Hospital [facility]
--- NOTE | 2021-05-19 21:01 | CT_ITS ---
STUDY: CT ABDOMEN AND PELVIS WITHOUT CONTRAST REASON FOR EXAM: Female, 80 years old. Diffuse abdominal pain. C. difficile infection. Nausea and dehydration. Elevated lipase. History of metastatic breast cancer with chemotherapy. RADIATION DOSAGE (If Supplied By Facility): CTDIvol = ( 22.26 ) mGy, DLP = ( 1006.50 ) mGycm TECHNIQUE: Transaxial images were obtained from the dome of the diaphragm to the symphysis pubis without oral contrast, and without intravenous contrast. Sagittal and coronal images were reconstructed. Individualized dose optimization techniques were used for this CT. COMPARISON: None. FINDINGS: Large pleural effusions with subsegmental atelectasis. The heart is markedly enlarged with pacer leads in the right heart. Liver appears prominent. There is a 2.9 x 2.1 x 3.5 cm low attenuation area in segment 3, thought to represent a cyst. The liver is otherwise uniform in density. There are surgical clips in the gallbladder fossa consistent with a prior cholecystectomy. There are multiple benign calcified granulomata of the spleen. Normal pancreas. Normal bilateral adrenal glands. 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 There is a 3 cm exophytic cyst off the lower pole of an otherwise normal left kidney. Normal visualized ureters. Normal visualized stomach. Normal small intestine. Normal colon. There is non-visualization of the appendix. There is diffuse atherosclerotic calcification of the abdominal aorta, without a demonstrated aneurysm. Normal inferior vena cava. Normal retroperitoneum. Normal urinary bladder. Unremarkable vaginal cuff. No pelvic lymphadenopathy. There is mild ascites seen in the subphrenic spaces, lesser omentum bilateral paracolic gutters and predominantly in the pelvis. There is no free air. There is diffuse anasarca of the abdominal wall and flanks. There is diffuse metastatic disease within the visualized osseous structures of the spine and pelvis and ribs. CT/Abdomen/Pelvis without Cont IMPRESSION: 1. Mild ascites. 2. Normal appearing colon. There are no findings suggestive of C. difficile infection. 3. Enlarged liver with probable left hepatic cyst. 4. Diffuse osseous metastases. 5. Anasarca. 6. Cardiomegaly with cardiac pacemaker. 7. Large bilateral pleural effusions. Electronically Signed: Dewayne Magaña DO at 21:58 EDT Tel [phone], Service support ,
[2021-05-19] MEDS: 0.9% Normal Saline 1,000 ML 999 ML IV ×2 (21:06→23:06)
[2021-05-19] MEDS: fentaNYL 100 MCG/2 ML Ampul 50 MCG IV (21:07)
[2021-05-19] MEDS: Ondansetron 4 MG/2 ML Vial IV (21:07)
[2021-05-19 21:10] LABS: Absolute Lymphocyte Count 0.98 X10^3/uL (0.83-4.51); Absolute Neutrophil Count 9.6 X10^3/uL (2.0-7.7); Basophil# 0.02 X10^3/uL; Basophil% 0.2 % (0-1); Eosinophil# 0.03 X10^3/uL; Eosinophils% 0.3 % (0-5); Hematocrit 28.1 % (37-47); Hemoglobin 8.6 g/dL (12.0-15.0); Lymphocyte # 0.98 X10^3/ul (0.83-4.51); Lymphocyte % 8.8 % (19-41); Mean Corp Hgb Conc 30.6 g/dL (32-36); Mean Corpuscular Hgb 30.7 pg (27.0-32.0); Mean Corpuscular Volume 100.4 fL (81-99); Mean Platelet Vol. 10.1 fl (6.2-12.0); Monocyte# 0.44 X10^3/uL; Monocyte% 3.9 % (0-10); NRBC Flagged by Analyzer 0.4 % (0-5); Neutrophil # 9.61 X10^3/uL (2.7-7.7); Neutrophil % 86.3 % (47-70); Platelet Count 137 K/mm3 (150-450); RBC Distribution Width CV 19.1 % (11.6-14.6); RBC Distribution Width SD 63.9 fl (35.1-43.9); White Blood Count 11.1 K/mm3 (4.4-11.0)
[2021-05-19 21:39] LABS: ALB/GLOB Ratio 0.7 RATIO (0.9-2.4); AST(SGOT) 38 U/L (15-37); Alanine Aminotransfer ALT/SGPT 26 U/L (13-56); Albumin, Serum 2.2 g/dL (3.2-5.0); Alkaline Phosphatase 110 U/L (45-117); Anion Gap 6 (5-15); BUN 27 mg/dL (7-18); BUN/Creat Ratio 10.8 RATIO (10-20); Calcium,Total 8.1 mg/dL (8.5-10.1); Chloride 103 mmol/L (98-107); Creatinine, Serum 2.51 mg/dL (0.55-1.02); EST Glomerular Filtration Rate 20 mL/min (>60); Est Glom Filt Rate - Afr Amer 24 mL/min (>60); Estimated Creatinine Clearance 17.73 ml/min; Globulin 3.3 g/dL (2.2-4.2); Glucose 95 mg/dL (74-106); Lipase 132 U/L (73-393); Potassium 6.1 mmol/L (3.5-5.1); Protein, Total 5.5 g/dL (6.4-8.2); Sodium Level 129 mmol/L (136-145); Troponin-I HS 25 pg/mL (3.0-54.0)
--- NOTE | 2021-05-19 21:45 | RAD.NOTE ---
PT'S OXYGEN WAS 77-[address] SCAN ON 3 L OF O2. LET PT'S NURSE KNOW O2 SATS ALARMING. CHECKED PLACEMENT OF SENSOR-NOT IMPROVING.
[2021-05-19 22:26] LABS: Bacteria 0 SEEN /hpf (None Seen); Mucous, Urine 0 SEEN /hpf (<or=2+); Red Blood Cells-Urine 0 SEEN /hpf (0-5)
[2021-05-19 22:27] LABS: Color, Urine Amber (Yellow); Glucose, Dipstick Normal (Normal); Ketone-Dipstick 5 mg/dl (Negative); Leukocyte Esterase-Dipstick 25 /ul (Negative); Nitrite-Dipstick Negative (Negative); Occult Blood-Urine 10 /ul (Negative); Protein-Dipstick 30 mg/dl (Negative); Urine Clarity Sl. Cloudy (Clear); Urine Urobilinogen Normal (Normal)
[2021-05-19 22:44] LABS: Urine Bilirubin Dipstick 1 mg/dL (Negative)
[2021-05-19 22:48] LABS: Hyaline Cast 50-100 SEEN /lpf (0-5); Squamous Epithelial Cells - UA 0-5 SEEN /hpf (5-10); White Blood Cells 0-5 SEEN /hpf (0-5)
[2021-05-19] MEDS: Insulin Lispro 10 UNIT in Syringe 0 ML 6 UNIT IV (23:11)
[2021-05-19] MEDS: Dextrose 50%-Water 25 GM/50 ML DISP.SYRIN IV (23:13)
[2021-05-19] MEDS: Dextrose 10%-Water 250 ML 40 ML IV (23:21)
[2021-05-20] VITALS (62 sets, daily range): BP systolic 54–160; BP diastolic 24–122; PULSE 61–88; RESP 12–25; TEMP 35–36.9; O2SAT 10–100; BMI 30.7
[2021-05-20 00:39] LABS: Reflex Lactate? Y
[2021-05-20 01:26] LABS: Potassium 4.9 mmol/L (3.5-5.1)
[2021-05-20 02:42] LABS: Lactic Acid 3.3 mmol/L (0.4-1.9)
--- NOTE | 2021-05-20 02:42 | PCM.HOSP.N ---
Hospitalist Note Notified to admit by ED. at that time, patient's blood pressures had improved into the 140s. When I went to see the patient, her blood pressure was consistently in the 70s and 80s after several rechecks. Discussion was the patient and her son at bedside as patient was discharged from [facility] 9 days ago with C. difficile colitis. There was noted history of acute kidney injury but specific details are not available at this time. He stated that she has not been eating or drinking much. Patient has received IV fluids thus far in the emergency room and blood pressures are still low. Dr. Be had spoken about central line but the son did not want that. But blood pressure had improved at that point. On my evaluation, patient blood pressure was low in the 70s and 80s as mentioned previously. I discussed with he and his mother about central line to be able to administer pressor agents as her blood pressure and her peripheral IV would not be sufficient if that were to become necessary. So I also addressed CODE STATUS with him and he consistently said that this was a family decision and would not give me a specific answer if that was to be performed or not. I told them that if they wanted CPR then we should do the line because she is at high risk for cardiac arrest with her blood pressure being low as well as her hyperkalemia. But if they did not want the central line then I recommended patient not undergo cardiopulmonary resuscitation. He stated concerns about central line because of bleeding and with her being on apixaban. Continue to try to get headway in regards to understanding the importance of the central line being able to administer pressor agents if necessary. He kept on saying that this is not a good time being 2:30 in the morning. Informed him that she is just very sick and we do not have the luxury wait on making these decisions. He stated that they came here because the patient wanted to be here and they want to be cared for. Informed them both that we are trying to do so but we need to make decisions in regards to aggressiveness of care and if they wanted to have full measures and have everything done that we should put in the central line. Eventually stated that he wanted the patient transferred to [facility] and that he was pissed off by me and my questioning. Notified Dr. Robles.
[2021-05-20] MEDS: 0.9% Normal Saline 1,000 ML 1000 ML IV (04:31)
--- NOTE | 2021-05-20 05:10 | NURSING ---
Pt awake, writing notes to this RN, pt coughing, rr increasing slightly, pt redirected, psn called, switched to cpap. much support given.
--- NOTE | 2021-05-20 05:38 | HP.PCM.HOS_ITS ---
HPI - General General Date of Admission: 05/20/21 Date of Service: 05/20/21 Chief Complaint: debility HPI Narrative KAYLYN GUTIERREZ, is a 80 F who presents with progressive weakness. Patient was discharged from [facility] on with C. difficile colitis. Patient was discharged home but while at home, patient has not been eating or drinking much. Patient presented to the emergency room with elevated creatinine as well as potassium. Patient received IV fluids as well as dextrose, insulin, albuterol. She underwent a CT of her abdomen pelvis that showed mild ascites, enlarged liver with probable left hepatic cyst, diffuse osseous metastasis and anasarca. Apparently patient has been noticing increasing lower extremity edema. Patient's blood pressures were variable but overall has been hypotensive, please review the hospice note placed earlier by myself, but essentially they do not want central line because patient's prior history of a porch you have noticed what explained to only be a temporary procedure to administer pressor agents. Essentially the the patient's son does not believe the blood pressures because there is variability with manual pressures being higher than the machine readings. Asked him if those were consistently the same and low he still states that he does not want her to be on a pressure medications nor to have any central venous access at this time. Though he does want to everything done except for the sinks. Given those explained to him that in the code situations we would need to have IV access and we would be limited if we are not placed a central line if that were to be necessary. [facility] Medical History Breast cancer CAD (coronary artery disease) Chronic acquired lymphedema Chronic CHF HLD (hyperlipidemia) HTN (hypertension) Obesity (BMI 30.0-34.9) Osteoporosis Right leg DVT Home Medications albuterol sulfate [ProAir HFA] 1 - 2 puff INHALATION Q6H PRN PRN 10/19/14 [History Last Taken 07/19/19] acetaminophen [Tylenol] 325 - 650 mg PO Q6H PRN PRN 08/26/18 [History Last Taken 07/19/19] atorvastatin 20 mg PO QHS 07/20/19 [History Last Taken 07/19/19] Eliquis 2.5 mg PO BID 05/19/21 [History Last Taken Unknown] levothyroxine 25 mcg PO DAILY 05/19/21 [History Last Taken Unknown] metoprolol succinate 25 mg PO DAILY 05/19/21 [History Last Taken Unknown] potassium chloride 10 meq PO DAILY 05/19/21 [History Last Taken Unknown] torsemide 20 mg PO DAILY 05/19/21 [History Last Taken Unknown] Allergy/AdvReac Type Severity Reaction Status Date / Time Sulfa (Sulfonamide Allergy FEVER AND Verified 05/19/21 19:43 Antibiotics) PUT ME IN THE BED Family History (Updated 05/20/21 @ 05:[address] Wilner Kiser DO) Other Cancer Social History Smoking Status: Former smoker ROS ROS Narrative Abdominal pain, abdominal distention. Nausea. All review of systems were negative except as mentioned above in the history of present illness and the other review of systems. Vital Signs Vital Signs Vital Signs: 05/19/21 19:44 05/19/21 20:57 05/19/21 20:59 Temperature 35.7 C L Temperature Source Temporal Pulse Rate 69 80 Respiratory Rate 12 18 Blood Pressure 73/40 L 68/58 L Blood Pressure Mean 51 61 Pulse Ox 94 100 Oxygen Delivery Method Room Air Nasal Cannula Nasal Cannula Oxygen Flow Rate (L/min) 3 3 05/19/21 21:11 05/19/21 21:52 05/19/21 22:16 Temperature 35.9 C L Temperature Source Temporal Pulse Rate 80 80 81 Respiratory Rate 12 Blood Pressure 72/63 L 91/51 L 74/50 L Blood Pressure Mean 66 64 58 Pulse Ox 100 Oxygen Delivery Method Nasal Cannula Oxygen Flow Rate (L/min) 3 05/19/21 22:48 05/19/21 23:19 05/19/21 23:23 Temperature 35.9 C L 35.7 C L Temperature Source Temporal Temporal Pulse Rate 87 88 80 Respiratory Rate 16 14 15 Blood Pressure 64/35 L 89/61 L Blood Pressure Mean 44 70 Pulse Ox 98 95 Oxygen Delivery Method Nasal Cannula Nasal Cannula Oxygen Flow Rate (L/min) 3 3 05/19/21 23:54 05/20/21 00:53 05/20/21 01:08 Temperature 36.1 C L Temperature Source Temporal Pulse Rate 81 80 Respiratory Rate 22 H 22 H Blood Pressure 100/70 84/57 L 76/61 L Blood Pressure Mean 80 66 66 Pulse Ox 94 96 Oxygen Delivery Method Nasal Cannula Nasal Cannula Oxygen Flow Rate (L/min) 3 3 05/20/21 01:41 05/20/21 02:03 05/20/21 03:33 Temperature Temperature Source Pulse Rate 80 80 80 Respiratory Rate 12 12 18 Blood Pressure 143/97 H 160/110 H 68/44 L Blood Pressure Mean 112 126 52 Pulse Ox 98 96 100 Oxygen Delivery Method Nasal Cannula Nasal Cannula Nasal Cannula Oxygen Flow Rate (L/min) 3 3 3 05/20/21 04:00 Temperature Temperature Source Pulse Rate 80 Respiratory Rate 18 Blood Pressure 85/51 L Blood Pressure Mean 62 Pulse Ox 95 Oxygen Delivery Method Nasal Cannula Oxygen Flow Rate (L/min) 3 Weight Weight: 68.039 kg Body Mass Index (BMI) 22.8 Physical Exam Const Constitutional Narrative: Appears older than stated age. Cachectic. Afebrile. Jaundiced. HEENT HEENT Narrative: Temporal wasting. Mucous membranes are dry. Eyes PERRL Eyes Narrative: Icterus Neck no lymphadenopathy and no JVD Resp normal respiratory effort Cardio regular rate, regular rhythm, S1 normal heart sound and S2 normal heart sound GI GI Narrative: Distended. Nontender. Extremity Extremity Narrative: Bilateral lower extremity edema. Skin Skin Narrative: Lymphedematous changes with venous stasis dermatitis bilaterally Neuro Sensorium / Orientation: alert Psych Psych Narrative: Flat affect Results Lab / Micro Data Attestation: I reviewed the patient's lab results. Result Diagrams: 05/19/21 20:38 05/20/21 01:05 Labs: Laboratory Results - last 24 hr 05/19/21 20:38: WBC 11.1 H, RBC 2.80 L, Hgb 8.6 L, Hct 28.1 L, MCV 100.4 H, MCH 30.7, MCHC 30.6 L, RDW Std Deviation 63.9 H, RDW Coeff of [place] 19.1 H, Plt Count 137 L, MPV 10.1, Immature Gran % (Auto) 0.500, Neut % (Auto) 86.3 H, Lymph % (Auto) 8.8 L, [place] % (Auto) 3.9, Eos % (Auto) 0.3, Baso % (Auto) 0.2, Absolute Neuts (auto) 9.6 H, Absolute Lymphs (auto) 0.98, Nucleated RBC % 0.4 05/19/21 20:38: Sodium 129 L, Potassium 6.1 H*, Chloride 103, Carbon Dioxide 20.0 L, Anion Gap 6, BUN 27 H, Creatinine 2.51 H, Estim Creat Clear Calc 17.73, Est GFR (MDRD) Af Amer 24 L, Est GFR (MDRD) Non-Af 20 L, BUN/Creatinine Ratio 10.8, Glucose 95, Calcium 8.1 L, Total Bilirubin 1.40 H, AST 38 H, ALT 26, Alkaline Phosphatase 110, Troponin I High Sens 25, Total Protein 5.5 L, Albumin 2.2 L, Globulin 3.3, Albumin/Globulin Ratio 0.7 L, Lipase 132 05/19/21 20:38: Lactic Acid 3.0 H* 05/19/21 21:30: Urine Color Cancelled, Urine Clarity Cancelled, Urine pH Cancelled, Ur Specific [place] Cancelled, U Specif Grav (Refrac) Cancelled, Urine Protein Cancelled, Urine Glucose (UA) Cancelled, Urine Ketones Cancelled, Urine Occult Blood Cancelled, Urine Nitrite Cancelled, Urine Bilirubin Cancelled, Urine Urobilinogen Cancelled, Ur Leukocyte Esterase Cancelled, Urine RBC Cancelled, Urine WBC Cancelled, Ur Squamous Epith Cells Cancelled, Ur Transition Epith Cell Cancelled, Ur Renal Epithelial Cell Cancelled, Calcium Oxalate Crystal Cancelled, Uric Acid Crystals Cancelled, Triple Phos Crystals Cancelled, Other Crystals Cancelled, Amorphous Sediment Cancelled, Urine Bacteria Cancelled, Hyaline Casts Cancelled, Fine Granular Casts Cancelled, Coarse Granular Casts Cancelled, Waxy Casts Cancelled, RBC Casts Cancelled, WBC Casts Cancelled, Urine Mucus Cancelled, Urine Trichomonas Cancelled, Urine Yeast Cancelled 05/19/21 22:15: Urine Color [place], Urine Clarity Sl. Cloudy, Urine pH 5.0, Ur Specific [place] 1.020, Urine Protein 30 H, Urine Glucose (UA) Normal, Urine Ketones 5 H, Urine Occult Blood 10 H, Urine Nitrite Negative, Urine Bilirubin 1 H, Urine Urobilinogen Normal, Ur Leukocyte Esterase 25 H, Urine RBC 0 SEEN, Urine WBC 0-5 SEEN, Ur Squamous Epith Cells 0-5 SEEN, Urine Bacteria 0 SEEN, Hyaline Casts 50-100 SEEN, Urine Mucus 0 SEEN 05/20/21 01:05: Lactic Acid 3.3 H* 05/20/21 01:05: Potassium 4.9 Radiology Impression Chest X-Ray 05/19/21 20:56 IMPRESSION: 1. New bilateral pleural effusions and atelectasis. 2. Stable cardiomegaly with cardiac pacemaker. Electronically Signed: Dewayne MagañaDO at 21:17 EDT Tel [phone], Service support , Abdomen/Pelvis CT 05/19/21 21:01 IMPRESSION: 1. Mild ascites. 2. Normal appearing colon. There are no findings suggestive of C. difficile infection. 3. Enlarged liver with probable left hepatic cyst. 4. Diffuse osseous metastases. 5. Anasarca. 6. Cardiomegaly with cardiac pacemaker. 7. Large bilateral pleural effusions. Electronically Signed: Dewayne MagañaDO at 21:58 EDT Tel [phone], Service support , Assessment & Plan Assessment/Plan (1) Hypovolemic shock: (2) RICKY (acute kidney injury): (3) Acute hyperkalemia: (4) Bilateral pleural effusion: (5) C. difficile colitis: PLAN: 1. Hypovolemic shock * Appears to be refractory to greater than 2 L of IV fluids thus far * Advised pressors but particularly with central venous access. The son remains steadfast in the fact that she does not want the patient to have a central venous access despite recommending it to help prevent a sclerosis of the vessels in the peripheral veins. Advised that it should only be done short- term in the peripheral IVs. He appears to be resolute in his decision because he does not believe the blood pressure readings that are recorded by the machine citing a discrepancy between that and the manual readings. * Patient be placed in the intensive care unit because she is hypotensive and she is full code and case was discussed with Dr. Martell * Continue with IV fluids * Hold diuretics and metoprolol 2. Acute kidney injury * Presumed prerenal * Continue with IV fluids * Consider nephrology consultation if creatinine is worse 3. Hyperkalemia * Secondary to RICKY plus potassium supplementation * Follow-up lab work * Patient did receive a battery medications in the emergency room to correct hyperkalemia * Is still elevated consider Kayexalate 4. Stage IV breast cancer * Patient undergoing treatment at the [facility] * We will request records 5. Recent C. difficile colitis * Stool has noted to be improved to pasty consistency * Check records from [facility] 6. VTE prophylaxis: Not indicated as patient is already on apixaban Advance care planning: Spent an additional 20 minutes discussing about advanced directives including CPR and ventilator. Stated that if patient is not to have central line that I recommended DNR Comfort Care arrest no intubation. The patient son wants her to have CPR in the event of rest but does not want her to a central line. Explained the limitations that would be had if we cannot have a central line if she does undergo cardiac arrest. He is confident that that will not be an issue but told him that she is can be at risk given her hypertension as well as her electrolyte derangements of cardiac arrest. Charges/Coding Visit Charges Inpatient E&M: 37834 Init Hosp L3 [facility] C[facility] Hospitalists' Procedures Procedures: 83965 Advncd Care Plan 30 Min
--- NOTE | 2021-05-20 06:22 | NURSING ---
Report received from Car SUAZO
--- NOTE | 2021-05-20 06:50 | NURSING ---
Pt received to icu 2, moved to bed with assist x4, O2 via n/c at 2lpm. Pt son to waiting room.
--- NOTE | 2021-05-20 08:23 | CON.PCM.CC_ITS ---
Assessment & Plan Assessment/Plan (1) Hypovolemic shock: PLAN: RECOMMENDATIONS: 1. Continue fluid resuscitation. 2. Continue vasopressor support in an attempt to maintain a mean arterial pr essure at or above 65 mmHg. 3. Start empiric antimicrobials. 4. Therapeutic transition from Eliquis to Lovenox, given n.p.o. status. 5. Speech therapy evaluation prior to advancing diet. IMPRESSIONS: 1. Hypovolemic versus septic shock The patient initially presented to the hospital with abdominal pain and was found to be hypotensive, which was refractory to fluid resuscitation. The patient was ultimately initiated on vasopressor support to maintain hemodynamic stability. However, the patient's son is refusing to allow for triple-lumen c atheter placement. Therefore, she will be maintained on low-dose Levophed through a peripheral line in hopes of maintaining hemodynamic stability. The patient was previously on treatment for C. difficile colitis. CT abdomen did not reveal any acute changes. However, she does have bilateral effusions, which could represent an underlying infectious process. Therefore, the patient will be started empirically on antimicrobials. Thoracentesis may need to be considered, depending on the patient's clinical course. 2. Acute kidney injury Likely prerenal in etiology and related to #1. Anticipate stabilization/improvement with volume expansion. Continue to monitor urine output. No current indication for renal replacement therapy. 3. Hyponatremia Secondary to hypovolemia. Continue fluid resuscitation as ordered. Recheck levels in the morning. 4. Anemia/thrombocytopenia Continue to monitor blood counts daily. Transfuse for hemoglobin less than 7 g/dL. 5. Recent C. difficile colitis/history of metastatic breast cancer/hypothyroidism/heart failure with reduced ejection fraction, atrial fibrillation Complicates care, management, recovery and prognosis. Hold diuretics. Th erapeutic interchange from Eliquis to Lovenox given n.p.o. status. TIME: 37 minutes of critical care time, independent of procedures, was spent addressing the patient's hypovolemic versus septic shock, acute kidney injury, hyponatremia, anemia, thrombocytopenia, review of all data and collaboration with the care team. HPI Consult Data Date of Consult: 05/21/21 HPI Narrative HPI Narrative: The patient is an 80-year-old female, with a history as outlined below, who presented to the emergency department on May 19 with abdominal pain and failure to thrive. The patient was just discharged from [facility] on May 10 after having been admitted for C. difficile colitis and urinary tract infection. The patient's medical history is significant for metastatic breast cancer, hypothyroidism, heart failure with reduced ejection fraction, atrial fibrillation, and heart block status post ICD placement. On presentation to the emergency department, the patient was noted to be hypotensive with a presenting blood pressure of 73/40 mmHg. Laboratory evaluation revealed a white blood cell count of 11,000 with a hemoglobin of 8.6 g/dL and a platelet count of 137,000. Chemistry profile revealed a sodium of 129, potassium of 4.9, bicarbonate of 20 and creatinine of 2.51. Lactate was elevated to 3.0. Total bili was increased to 1.4. Chest x-ray demonstrated bilateral pleural effusions. CT abdomen/pelvis revealed bilateral pleural effusions with cardiomegaly, anasarca, diffuse osseous metastasis and sequelae of C. difficile infection. The patient received supplemental IV fluid hydration. However, the patient's hypotension was fluid refractory and she was subsequently started on low-dose Levophed and admitted to the medical intensive care unit. Of note, I did meet personally with the patient's son, who was insistent that we not use high doses of vasopressor support on his mother. He also was resistant to the idea of central venous catheter placement. He is requesting her transfer to [facility]. However, there is not currently a bed available. Despite the aforementioned, he wishes her to remain a full code. [facility] Medical History (Updated 05/20/21 @ 07:33 by Nery Barajas) Breast cancer CAD (coronary artery disease) Chronic acquired lymphedema Chronic CHF HLD (hyperlipidemia) HTN (hypertension) Obesity (BMI 30.0-34.9) Osteoporosis Pacemaker Right leg DVT Home Medications albuterol sulfate [ProAir HFA] 1 - 2 puff INHALATION Q6H PRN PRN 10/19/14 [History Last Taken 07/19/19] acetaminophen [Tylenol] 325 - 650 mg PO Q6H PRN PRN 08/26/18 [History Last Taken 07/19/19] atorvastatin 20 mg PO QHS 07/20/19 [History Last Taken 07/19/19] Eliquis 2.5 mg PO BID 05/19/21 [History Last Taken Unknown] levothyroxine 25 mcg PO DAILY 05/19/21 [History Last Taken Unknown] metoprolol succinate 25 mg PO DAILY 05/19/21 [History Last Taken Unknown] potassium chloride 10 meq PO DAILY 05/19/21 [History Last Taken Unknown] torsemide 20 mg PO DAILY 05/19/21 [History Last Taken Unknown] Allergy/AdvReac Type Severity Reaction Status Date / Time Sulfa (Sulfonamide Allergy FEVER AND Verified 05/19/21 19:43 Antibiotics) PUT ME IN THE BED Family History (Updated 05/20/21 @ 05:[address] Wilner Kiser DO) Other Cancer Social History Smoking Status: Former smoker ROS Review of Systems ROS Unobtainable: due to mental status Physical Exam Const alert General Appearance: cooperative and frail Orientation / Consciousness: confused Nutritional Appearance: cachectic HEENT normocephalic and head/scalp atraumatic Eyes PERRL and EOMs intact bilaterally Neck supple General: trachea midline Chest inspection of chest normal Resp normal respiratory effort Auscultation: diminished lung sounds Cardio regular rate and regular rhythm GI normal to inspection, nondistended, normoactive bowel sounds Extremity General Extremity: edema Skin General Skin Exam: venous stasis and dermatitis Neuro no focal motor deficits Psych Mood & Affect: flat affect Lab / Micro Data Result Diagrams: 05/21/21 05:10 05/21/21 05:10 Labs: Laboratory Results - last 24 hr 05/19/21 20:38: WBC 11.1 H, RBC 2.80 L, Hgb 8.6 L, Hct 28.1 L, MCV 100.4 H, MCH 30.7, MCHC 30.6 L, RDW Std Deviation 63.9 H, RDW Coeff of [place] 19.1 H, Plt Count 137 L, MPV 10.1, Immature Gran % (Auto) 0.500, Neut % (Auto) 86.3 H, Lymph % (Auto) 8.8 L, [place] % (Auto) 3.9, Eos % (Auto) 0.3, Baso % (Auto) 0.2, Absolute Neuts (auto) 9.6 H, Absolute Lymphs (auto) 0.98, Nucleated RBC % 0.4 05/19/21 20:38: Sodium 129 L, Potassium 6.1 H*, Chloride 103, Carbon Dioxide 20.0 L, Anion Gap 6, BUN 27 H, Creatinine 2.51 H, Estim Creat Clear Calc 17.73, Est GFR (MDRD) Af Amer 24 L, Est GFR (MDRD) Non-Af 20 L, BUN/Creatinine Ratio 10.8, Glucose 95, Calcium 8.1 L, Total Bilirubin 1.40 H, AST 38 H, ALT 26, Alkaline Phosphatase 110, Troponin I High Sens 25, Total Protein 5.5 L, Albumin 2.2 L, Globulin 3.3, Albumin/Globulin Ratio 0.7 L, Lipase 132 05/19/21 20:38: Lactic Acid 3.0 H* 05/19/21 21:30: Urine Color Cancelled, Urine Clarity Cancelled, Urine pH Cancelled, Ur Specific [place] Cancelled, U Specif Grav (Refrac) Cancelled, Urine Protein Cancelled, Urine Glucose (UA) Cancelled, Urine Ketones Cancelled, Urine Occult Blood Cancelled, Urine Nitrite Cancelled, Urine Bilirubin Cancelled, Urine Urobilinogen Cancelled, Ur Leukocyte Esterase Cancelled, Urine RBC Cancelled, Urine WBC Cancelled, Ur Squamous Epith Cells Cancelled, Ur Transition Epith Cell Cancelled, Ur Renal Epithelial Cell Cancelled, Calcium Oxalate Crystal Cancelled, Uric Acid Crystals Cancelled, Triple Phos Crystals Cancelled, Other Crystals Cancelled, Amorphous Sediment Cancelled, Urine Bacteria Cancelled, Hyaline Casts Cancelled, Fine Granular Casts Cancelled, Coarse Granular Casts Cancelled, Waxy Casts Cancelled, RBC Casts Cancelled, WBC Casts Cancelled, Urine Mucus Cancelled, Urine Trichomonas Cancelled, Urine Yeast Cancelled 05/19/21 22:15: Urine Color Khushbu, Urine Clarity Sl. Cloudy, Urine pH 5.0, Ur Specific [place] 1.020, Urine Protein 30 H, Urine Glucose (UA) Normal, Urine Ketones 5 H, Urine Occult Blood 10 H, Urine Nitrite Negative, Urine Bilirubin 1 H, Urine Urobilinogen Normal, Ur Leukocyte Esterase 25 H, Urine RBC 0 SEEN, Urine WBC 0-5 SEEN, Ur Squamous Epith Cells 0-5 SEEN, Urine Bacteria 0 SEEN, Hyaline Casts 50-100 SEEN, Urine Mucus 0 SEEN 05/20/21 01:05: Lactic Acid 3.3 H* 05/20/21 01:05: Potassium 4.9 Radiology Impression Chest X-Ray 05/19/21 20:56 IMPRESSION: 1. New bilateral pleural effusions and atelectasis. 2. Stable cardiomegaly with cardiac pacemaker. Electronically Signed: Dewayne Magaña DO at 21:17 EDT Tel [phone], Service support , Abdomen/Pelvis CT 05/19/21 21:01 IMPRESSION: 1. Mild ascites. 2. Normal appearing colon. There are no findings suggestive of C. difficile infection. 3. Enlarged liver with probable left hepatic cyst. 4. Diffuse osseous metastases. 5. Anasarca. 6. Cardiomegaly with cardiac pacemaker. 7. Large bilateral pleural effusions. Electronically Signed: Dewayne Magaña DO at 21:58 EDT Tel [phone], Service support , Charges/Coding Procedures Hospitalists Procedures: [id number] [facility] 1st Hr
--- NOTE | 2021-05-20 09:29 | NURSING ---
Patient and Odessa, patient's son, refused consent to obtain medical records from [facility].
--- NOTE | 2021-05-20 10:11 | CASEMGMT ---
SW participated in ICU rounds, then spoke w/pt and son after rounds for clarification on prior level of care, family support, POA if any. PCP: Pt refused to tell SW, states SW doesn't need to know everything Specialists: As per son, pt sees Dr. Turner for Cardiology, was recently at [facility] Insurance: Medicare/Medicaid crossover LNOK: As per son Martin and pt, pt had 7 children. Two children have passed, 5 are living. The sons are local, Bonilla in [place], Azar is close to [place], Jonathan in [place]. POA/LW: As per son Martin, pt does not have POA. SW explained to pt and son if medical decisions need made and pt is not able, the 5 living children would need to agree. Pt states I don't have a boss. Prior level of function: As per son Martin and pt, son was recently in [facility], and from there went home to son Rhonda' home. Pt was independent a month ago as per Rhonda. Since pt has been home w/him, he has been helping pt w/ADL's. DME/HHC: Pt states she uses a cane and walker, has oxygen at home. As per son, she uses oxygen as needed, he states she has had a concentrator for a long time, believes it's from [facility]. [facility] did set up home care however pt refused it. SW spoke w/pt and son about pt's wishes. Pt and son both state the doctors here are pushy. Pt states for smaller problems they come to the local hospital and for bigger problems go to [facility]. Pt agreeing w/son. JOSEPHINE inquired if this has been pt's wishes even when she is not having confusion, and he states yes. Son does not want a central line put in here, pt agreeing with this. As per this SW's understanding, plan will be for pt to transfer to [facility] pending bed availability. SW remains available for any additional social service needs. RADHA Miller
--- NOTE | 2021-05-20 10:13 | NURSING ---
Patient stated I've had difficulty chewing and swallowing for a while, my son has to frequently pat me on the back to get food unstuck. Per Rhonda, patient's son, patient was to have Barium swallow done, but hasn't. Speech Therapy consulted, NPO for now.
[2021-05-20] MEDS: Enoxaparin 80 MG/0.8 ML Syringe SC (11:18)
--- NOTE | 2021-05-20 13:52 | NURSING ---
patient's BP low, needed to increase levophed to 6 mcg/min, Rhonda, son, stated take a manual pressure because in ED it was drastically different and I don't want anymore harm on her veins with the levophed if she doesn't need it. Manual BP taken, result 68/42, educated on the need for increase in levophed and will reassess in 15 minutes. Rhonda, son, stated I don't want that medication to go higher than 6, she doesn't need anything else to go wrong, I have no doubt I could leave now and take her to [facility] since she has come around more and making more urine. Educated Rhonda that it is their right to make that decision if they want to leave AMA, however while she is here we will continue to treat her.
[2021-05-20] MEDS: Piperacil/Tazobactam 3.375 GM/50 ML ML IV ×2 (14:09→22:29)
--- NOTE | 2021-05-20 15:07 | WOUNDNOTE ---
wound photo: right lateral lower leg
--- NOTE | 2021-05-20 15:31 | PN.HOSP_ITS ---
Subjective Subjective Patient seen and examined. She was admitted in the early hours of today with complaint of abdominal pain. Patient had just been discharged from [facility] on May 10 after being treated there for C. difficile colitis and UTI. According to her son, she had had decreased intake since she came home. On admission she was noted to be hypotensive with an elevated white cell count of 11,000 and hemoglobin of 8.6. Total bilirubin also elevated to 1.4 and lactic acid was elevated at 3. Chest x-ray showed bilateral pleural effusions and CT abdomen and pelvis showed bilateral pleural effusions with cardiomegaly, anasarca and diffuse osseous metastasis from metastatic breast cancer and sequelae of C. difficile infection. She was started on IV fluids hypotension was refractory to IV fluids so she was started on low-dose Levophed and admitted to the ICU. Patient seen and examined. His son was by his bedside. Patient appeared to be confused with brief moments of lucidity. She however had no active complaints. His son stated that he did not wanted to get high dose of Levophed I did not wa nt her to have a central line. He stated she needed a central line he would want to transfer to [facility] and told me that he had called the transfer line at [facility] himself and he was awaiting a bed there for her. Review of systems otherwise negative. Objective Data Objective Data Vital Signs: Vital Signs Temp Pulse Resp BP Pulse Ox 96.8 F L 80 20 H 137/122 H 90 05/20/21 12:00 05/20/21 14:00 05/20/21 14:00 05/20/21 14:30 05/20/21 14:00 Oxygen Flow Rate (L/min) 1 Oxygen Delivery Method Nasal Cannula Weight: 184 lb 8.43 oz Body Mass Index (BMI) 30.7 Intake & Output: Intake and Output for Last 24 Hours 05/18/21 05/19/21 05/20/21 23:59 23:59 23:59 Intake Total 2029 1329.17 / 1329.17 Output Total 125 / 125 Balance 2029 1204.17 / 1204.17 Lab / Micro Data Result Diagrams: 05/19/21 20:38 05/20/21 01:05 Labs: Laboratory Results - last 24 hr 05/19/21 20:38: WBC 11.1 H, RBC 2.80 L, Hgb 8.6 L, Hct 28.1 L, MCV 100.4 H, MCH 30.7, MCHC 30.6 L, RDW Std Deviation 63.9 H, RDW Coeff of [place] 19.1 H, Plt Count 137 L, MPV 10.1, Immature Gran % (Auto) 0.500, Neut % (Auto) 86.3 H, Lymph % (Auto) 8.8 L, [place] % (Auto) 3.9, Eos % (Auto) 0.3, Baso % (Auto) 0.2, Absolute Neuts (auto) 9.6 H, Absolute Lymphs (auto) 0.98, Nucleated RBC % 0.4 05/19/21 20:38: Sodium 129 L, Potassium 6.1 H*, Chloride 103, Carbon Dioxide 20.0 L, Anion Gap 6, BUN 27 H, Creatinine 2.51 H, Estim Creat Clear Calc 17.73, Est GFR (MDRD) Af Amer 24 L, Est GFR (MDRD) Non-Af 20 L, BUN/Creatinine Ratio 10.8, Glucose 95, Calcium 8.1 L, Total Bilirubin 1.40 H, AST 38 H, ALT 26, Alkaline Phosphatase 110, Troponin I High Sens 25, Total Protein 5.5 L, Albumin 2.2 L, Globulin 3.3, Albumin/Globulin Ratio 0.7 L, Lipase 132 05/19/21 20:38: Lactic Acid 3.0 H* 05/19/21 21:30: Urine Color Cancelled, Urine Clarity Cancelled, Urine pH Canc elled, Ur Specific [place] Cancelled, U Specif Grav (Refrac) Cancelled, Urine Protein Cancelled, Urine Glucose (UA) Cancelled, Urine Ketones Cancelled, Urine Occult Blood Cancelled, Urine Nitrite Cancelled, Urine Bilirubin Cancelled, Urine Urobilinogen Cancelled, Ur Leukocyte Esterase Cancelled, Urine RBC Cancelled, Urine WBC Cancelled, Ur Squamous Epith Cells Cancelled, Ur Transition Epith Cell Cancelled, Ur Renal Epithelial Cell Cancelled, Calcium Oxalate Crystal Cancelled, Uric Acid Crystals Cancelled, Triple Phos Crystals Cancelled, Other Crystals Cancelled, Amorphous Sediment Cancelled, Urine Bacteria Cancelled, Hyaline Casts Cancelled, Fine Granular Casts Cancelled, Coarse Granular Casts Cancelled, Waxy Casts Cancelled, RBC Casts Cancelled, WBC Casts Cancelled, Urine Mucus Cancelled, Urine Trichomonas Cancelled, Urine Yeast Cancelled 05/19/21 22:15: Urine Color [place], Urine Clarity Sl. Cloudy, Urine pH 5.0, Ur Specific [place] 1.020, Urine Protein 30 H, Urine Glucose (UA) Normal, Urine Ketones 5 H, Urine Occult Blood 10 H, Urine Nitrite Negative, Urine Bilirubin 1 H, Urine Urobilinogen Normal, Ur Leukocyte Esterase 25 H, Urine RBC 0 SEEN, Urine WBC 0-5 SEEN, Ur Squamous Epith Cells 0-5 SEEN, Urine Bacteria 0 SEEN, Hyaline Casts 50-100 SEEN, Urine Mucus 0 SEEN 05/20/21 01:05: Lactic Acid 3.3 H* 05/20/21 01:05: Potassium 4.9 Radiography Diagnostic Testing: Radiology Impression Chest X-Ray 05/19/21 20:56 IMPRESSION: 1. New bilateral pleural effusions and atelectasis. 2. Stable cardiomegaly with cardiac pacemaker. Electronically Signed: Dewayne Magaña DO at 21:17 EDT Tel [phone], Service support , Abdomen/Pelvis CT 05/19/21 21:01 IMPRESSION: 1. Mild ascites. 2. Normal appearing colon. There are no findings suggestive of C. difficile infection. 3. Enlarged liver with probable left hepatic cyst. 4. Diffuse osseous metastases. 5. Anasarca. 6. Cardiomegaly with cardiac pacemaker. 7. Large bilateral pleural effusions. Electronically Signed: Dewayne Magaña DO at 21:58 EDT Tel [phone], Service support , Physical Exam Const alert Constitutional Narrative: very frail Orientation / Consciousness: confused, disoriented and lethargic Exam Limitations: altered mental status HEENT head/scalp atraumatic Head and Scalp: normocephalic Mouth: dry mucous membranes Eyes PERRL Neck no lymphadenopathy and supple Resp Resp Narrative: diminished breath sounds bibasally, no wheezes, no crackles. on 2L of oxygen by nasal cannula Cardio regular rate, regular rhythm, S1 normal heart sound, S2 normal heart sound and no murmurs GI normal to inspection, nondistended, normoactive bowel sounds, soft to palpation, non-tender and non-distended Extremity normal to inspection and full ROM Extremity Narrative: minimal LE edema Peripheral Pulses: Yes pulses 2+ throughout Skin Skin Narrative: skin is wrinkled and mildly erythematous on LEs. RLE wrapped in bandage. Neuro oriented x3, CN's II-XII intact bilaterally and moves all extremities Sensorium / Orientation: awake and alert Psych affect normal Assessment & Plan Assessment/Plan (1) RICKY (acute kidney injury): (2) Hypovolemic shock: (3) Bilateral pleural effusion: PLAN: #Hypovolemic vs septic shock * patient remains on low dose levophed. * Son says he doesnt want her to have a central line and would want her to be transferred if she needs a central line. * continue levophed and titrate to maintain MAP >65 * started on empiric antibiotics as it is not clear whether shock is septic or hypovolemic only. * blood cultures ordered * #RICKY with hyperkalemia * likely pre renal due to shock * on levophed. Was hydrated with IVF * hold off on fluids due to history of HFrEF * hyperkalemia has resolved. * will trend Cr * #Hyponatremia:sodium is 129. Will monitor and trend. #Anemia and thrombocytopenia * Hb is 8.6, and platelets are 137. Will monitor. #Recent C Diff colitis * treated at [facility]. * CT showed sequelae of C Diff colitis, but no active infection currently * #Metastatic breast cancer: follows up at [facility]. #Heart failure with reduced ejection fraction * Torsemide on hold on account of shock. Not in exacerbation. #History of A. fib: metoprolol on hold. Transitioned to Lovenox from Eliquis as she is currently NPO DVT prophylaxis: lovenox Charges/Coding Visit Charges Inpatient E&M: 23905 Subs Hosp L3
--- NOTE | 2021-05-20 17:35 | NURSING ---
Rhonda, son at beside since 0900 this AM, at this time son put correction officer head light asking nurse to come check arm where IV is This RN entered patient's room. Son standing at patient's bedside with facial grimace and leaning on side rails, began rubbing neck. This RN asked Rhonda if he was ok and needed to sit down, he refused to sit and asked if I had any ibuprofen he could have. This RN educated him that I could not give him ibuprofen since he was not the patient. Rhonda stated then can you just admit me? This RN communicated that I am unable to do so, but I could assist him to wheel down to our ED to be checked out. He shook his head no. This RN then asked if I could do anything else for him or the patient, son didn't speak, the patient stated no. This RN left room. Rhonda then on the floor on his knees in room, again was checked on by coworker and he indicated he needed ibuprofen, was offered assistance to ED, he refused. Kiera Sheriff notified of the event, and will be coming to floor to bring ibuprofen for patient's son.
--- NOTE | 2021-05-20 18:01 | NURSING ---
Kiera Sheriff in room, gave Rhonda, patient's son, two ibuprofen and he has agreed to be seen in ED. Kiera transporting him via wheelchair to ED at this time.
--- NOTE | 2021-05-20 18:25 | PCS.PANDOC ---
PANDEMIC DOCUMENTATION INITIATED: Date: 03/03/2021 Time: 190
[2021-05-20] MEDS: TITRATION PARAMETER CHANGE 1 EACH IV ×2 (21:51)
--- NOTE | 2021-05-20 21:56 | NURSING ---
talked to son Rhonda, he still wants everything done to save his mother if something should happen but he still hector not want a picc or central line placed and he does not want the Levophed increased with out clearing it with him first and only in a emergency call to ask permission.
--- NOTE | 2021-05-20 23:05 | NUR.TO.PHY ---
son сергей called wanting an update on his mother, there has been no change and she is not doing well, he wants to take her out of the hospital AMA now and take her to main campus, he wanted the nursing staff to get her ready and get her in his car so he could take her. I instructed him that we are unable to help him sign her out AMA and get her into his car. He was not happy with that answer and hung up on me. ED staff called up to the [facility] to inform us that he was calling independent ambulance services to take her out of the hospital. Nursing supercharge repair supervisor was notified security on stand by. will inform the hospitalist
[2021-05-21] VITALS (40 sets, daily range): BP systolic 75–128; BP diastolic 42–78; PULSE 75–87; RESP 14–23; TEMP 36.1–36.7; O2SAT 87–100
--- NOTE | 2021-05-21 01:27 | NURSING ---
talked to [facility] crew at length about the pt and her medication and situation. they have agreed to transport the pt to [facility], once someone pays the total cost to the ride in full. Explained to pt's son Rhonda while her daughter was on speaker phone, that we would have to take the iv out, which means stopping the levo, and taking out her cordova. and that there is a good possibility that she might not make the ride and if she codes on the way to the clinic they will have to divert to the closet ER which could possibly be [place] [facility]. Rhonda wanted to talk it over more with his sister and would get back to us. Hospitalist was with us talking to the son and daughter.
--- NOTE | 2021-05-21 02:19 | PCM.HOSP.N ---
Hospitalist Note Patient's son, Rhonda, was going the patient transferred to the [facility]. This was known early on and patient was accepted over there but they did not have any beds available. He was going to take the patient out AGAINST MEDICAL ADVICE and was going to have [facility] transfer the patient. He was in the waiting area in the emergency room and I went to speak with him. I asked him if he was a power of bobbin cleaner which he said he was not, I asked him if he was the next of kin, he stated he did not know. I then asked him if he was the oldest living child he said he was not, he was the youngest. I told him the decision to have the patient leave AGAINST MEDICAL ADVICE would fall to the next of kin since there is no definitive power of bobbin cleaner. He called his sister, Emelina. He was speaking with her that I asked to speak with her and stated the situation where the patient was in shock, on pressor agents and having the patient leave AGAINST MEDICAL ADVICE would warrant taking her off of norepinephrine, removing her IV and then having the ambulance service take her to the [facility] [place] to the emergency room. I explained that to Emelina as well as Rhonda that it is extremely risky, the patient could in transit and was clearly not medically recommended. I had the patient's nurse, Mindy, come down and have the AMA forms ready as the ambulance service stated that there was a need to be signed and that the son would need to have a credit card ready as he would be paying for the ambulance ride. He was aware that he would be paying for this. His feeling that the patient was not being adequately cared for here, that I was pushy and that she would likely get a bed sooner if she were to go to the ER at [facility] rather than waiting on a bed here. I explained to him specifically that with her being on pressor agents for prolonged period of time that she would require central venous access which she still has reservations about. He was mentioning to me that he was concerned about the patient having a air embolism. I told him that that is highly unlikely though patient would have a higher risk of bleeding being on anticoagulants and pneumothorax. I told him the risk of pneumothorax would be very low because it be done under ultrasound guidance. He called [facility] and was on the phone with the dispatcher, I asked that that dispatcher be put on speaker so that I and the nurse could speak with him and make sure that we are all on the same page. We all, the nurse, dispatcher and myself, all agreed that taken the patient out AGAINST MEDICAL ADVICE is a terrible idea and told the patient's son this. But if he wanted to take her out of the hospital that he needs to do so and sign off the AMA forms. He expressed reluctance in order to do so. I told him that we are happy to take care of him and that the reason that we are pushy is because the patient is very ill and could if not adequately taken care of given her critical nature. I also informed him that by him prohibiting us from doing her job to its fullest extent, particular with central venous access, may be compromising his mother's care and potentially lead to her . Despite that, he still does not want a central line even though it has been clearly expressed to him that if whenever she gets over to treat [facility], if she survives, they would likely be doing that very procedure. He wants the patient to stay here until she can be transferred to [facility], least at this point time. I also verified that that he will still wants her to be full code, which he does. It is concerning, from this provider, that there may be some kind of ulterior motive. He spent a lot of time on the phone despite myself, nursing, security as well as a deputy county clerk being there to speak and help navigate the situation. He would step out to talk on the phone for 10 minutes if not longer, then asked if a decision had been made, he said he needed several more minutes. Then 1 incision was thought to be made we spent an additional 30 minutes further discussing these issues with patient's and the dispatcher. Apparently earlier, the patient's son had an episode where he was lying on the floor in the patient's ICU room with a headache and neck pain and administration had to go to the room. Greater than 30 minutes spent on advance care planning with the patient's son and additional time spent discussing the transfer process and his and limiting our care. Procedures Hospitalists Procedures: 15852 Advncd Care Plan 30 Min
[2021-05-21 05:40] LABS: Absolute Neutrophil Count 7.1 X10^3/uL (2.0-7.7); Basophil# 0.01 X10^3/uL; Basophil% 0.1 % (0-1); Eosinophil# 0.04 X10^3/uL; Eosinophils% 0.5 % (0-5); Hematocrit 27.3 % (37-47); Hemoglobin 8.5 g/dL (12.0-15.0); Lymphocyte % 10.5 % (19-41); Mean Corp Hgb Conc 31.1 g/dL (32-36); Mean Corpuscular Volume 99.6 fL (81-99); Mean Platelet Vol. 9.1 fl (6.2-12.0); Monocyte# 0.44 X10^3/uL; Monocyte% 5.1 % (0-10); NRBC Flagged by Analyzer 1.2 % (0-5); Neutrophil # 7.09 X10^3/uL (2.7-7.7); POSITIVE MORPHOLOGY YES; Platelet Count 136 K/mm3 (150-450); RBC Distribution Width CV 19.7 % (11.6-14.6); Red Blood Count 2.74 M/mm3 (4.2-5.4); White Blood Count 8.6 K/mm3 (4.4-11.0)
[2021-05-21 05:44] LABS: Differential Indicated SCAN CRITERIA MET
[2021-05-21 05:57] LABS: Anisocytosis 2+; Polychromasia 1+
[2021-05-21 05:58] LABS: Burr Cells 3+; Ovalocyte 1+; Tear Drop Cell RARE
[2021-05-21 05:59] LABS: Poikilocytosis 2+
[2021-05-21 06:05] LABS: ALB/GLOB Ratio 0.6 RATIO (0.9-2.4); AST(SGOT) 28 U/L (15-37); Alanine Aminotransfer ALT/SGPT 23 U/L (13-56); Albumin, Serum 1.9 g/dL (3.2-5.0); Alkaline Phosphatase 97 U/L (45-117); Anion Gap 10 (5-15); BUN 29 mg/dL (7-18); BUN/Creat Ratio 12.1 RATIO (10-20); Calcium,Total 7.9 mg/dL (8.5-10.1); Chloride 105 mmol/L (98-107); EST Glomerular Filtration Rate 21 mL/min (>60); Est Glom Filt Rate - Afr Amer 25 mL/min (>60); Estimated Creatinine Clearance 16.54 ml/min; Globulin 3.2 g/dL (2.2-4.2); Glucose 73 mg/dL (74-106); Potassium 5.4 mmol/L (3.5-5.1); Protein, Total 5.1 g/dL (6.4-8.2); Sodium Level 134 mmol/L (136-145)
--- NOTE | 2021-05-21 06:32 | PN.CC_ITS ---
Assessment & Plan Assessment/Plan (1) Hypovolemic shock: PLAN: RECOMMENDATIONS: 1. Additional fluid resuscitation this morning. 2. Continue vasopressor support in an attempt to maintain a mean arterial pressure at or above 60 mmHg. 3. Continue empiric antimicrobials, while awaiting infectious work-up. 4. Therapeutic transition from Eliquis to Lovenox, given n.p.o. status. 5. Speech therapy evaluation prior to advancing diet. 6. Start scheduled midodrine 3 times daily. IMPRESSIONS: 1. Hypovolemic versus septic shock The patient initially presented to the hospital with abdominal pain and was found to be hypotensive, which was refractory to fluid resuscitation. The patient was ultimately initiated on vasopressor support to maintain hemodynamic stability. Plan to continue Levophed as tolerated to maintain a mean arterial p ressure at or above 60 mmHg. The patient was previously on treatment for C. difficile colitis. CT abdomen did not reveal any acute changes. However, she does have bilateral effusions, which could represent an underlying infectious process. Therefore, the patient will be continued empirically on a ntimicrobials. 2. Acute kidney injury Likely prerenal in etiology and related to #1. Anticipate stabilization/improvement with volume expansion. Continue to monitor urine output. No current indication for renal replacement therapy. 3. Anemia/thrombocytopenia Continue to monitor blood counts daily. Transfuse for hemoglobin less than 7 g/ dL. 4. Recent C. difficile colitis/history of metastatic breast cancer/hypothyroidism/heart failure with reduced ejection fraction, atrial fibrillation Complicates care, management, recovery and prognosis. Hold diuretics. Therapeutic interchange from Eliquis to Lovenox given n.p.o. status. TIME: 33 minutes of critical care time, independent of procedures, was spent addressing the patient's hypovolemic versus septic shock, acute kidney injury, anemia, thrombocytopenia, review of all data and collaboration with the care team. Subjective Subjective The patient was seen and examined at the bedside this morning. Events from the last 24 hours have been reviewed. The patient is currently afebrile and remains on Levophed at 8 mcg/min to maintain hemodynamic stability. She is currently maintaining appropriate oxygen saturations on 1 L/min via nasal cannula. Ov iknza, nursing staff did report that the patient was confused and agitated. Her son continues to interfere with her care and continues to threaten to sign her out AMA. She is currently documented to be overall net +3.4 L for the hospitalization. Potassium is up to 5.4 this morning. Bicarbonate is low at 19 with a creatinine of 2.4. She remains on empiric antimicrobials and Lovenox. Scheduled midodrine was ordered this morning. Objective Data Objective Data The patient's most recent lab work, culture data and imaging studies have all been personally reviewed. Blood and urine cultures are pending. Vital Signs: Vital Signs Temp Pulse Resp BP Pulse Ox 97.8 F 82 18 83/53 L 99 05/21/21 03:00 05/21/21 05:00 05/21/21 05:00 05/21/21 05:00 05/21/21 05:00 Oxygen Flow Rate (L/min) 1 Oxygen Delivery Method Nasal Cannula Weight: 82.1 kg Body Mass Index (BMI) 30.7 Intake & Output: Intake and Output for Last 24 Hours 05/19/21 05/20/21 05/21/21 23:59 23:59 23:59 Intake Total 2029 1482.66 / 1497.66 139.84 / 139.84 Output Total 225 / 225 Balance 2029 1257.66 / 1272.66 139.84 / 139.84 Lab / Micro Data Attestation: I reviewed the patient's lab results. Result Diagrams: 05/21/21 05:10 05/21/21 05:10 Labs: Laboratory Results - last 24 hr 05/21/21 05:10: WBC 8.6, RBC 2.74 L, Hgb 8.5 L, Hct 27.3 L, MCV 99.6 H, MCH 31.0, MCHC 31.1 L, RDW Std Deviation 67.0 H, RDW Coeff of Tyler 19.7 H, Plt Count 136 L, MPV 9.1, Immature Gran % (Auto) 0.800, Neut % (Auto) 83.0 H, Lymph % (Auto) 10.5 L, [place] % (Auto) 5.1, Eos % (Auto) 0.5, Baso % (Auto) 0.1, Absolute Neuts (auto) 7.1, Absolute Lymphs (auto) 0.90, Nucleated RBC % 1.2, Polychromasia 1+, Poikilocytosis 2+, Anisocytosis 2+, Tear Drop Cells RARE, Ovalocytes 1+, Metter Cells 3+ 05/21/21 05:10: Sodium 134 L, Potassium 5.4 H, Chloride 105, Carbon Dioxide 19.0 L, Anion Gap 10, BUN 29 H, Creatinine 2.40 H, Estim Creat Clear Calc 16.54, Est GFR (MDRD) Af Amer 25 L, Est GFR (MDRD) Non-Af 21 L, BUN/Creatinine Ratio 12.1, Glucose 73 L, Calcium 7.9 L, Total Bilirubin 1.30 H, AST 28, ALT 23, Alkaline Phosphatase 97, Total Protein 5.1 L, Albumin 1.9 L, Globulin 3.2, Albumin/Globulin Ratio 0.6 L Physical Exam Const alert General Appearance: cooperative and frail Orientation / Consciousness: confused Nutritional Appearance: cachectic HEENT normocephalic and head/scalp atraumatic Eyes PERRL and EOMs intact bilaterally Neck supple General: trachea midline Chest inspection of chest normal Resp normal respiratory effort Auscultation: diminished lung sounds Cardio regular rate and regular rhythm GI normal to inspection, nondistended, normoactive bowel sounds Extremity General Extremity: edema Skin General Skin Exam: venous stasis and dermatitis Neuro no focal motor deficits Psych Mood & Affect: flat affect Charges/Coding Procedures Hospitalists Procedures: 54447 Critial Care 1st Hr
[2021-05-21] MEDS: Lactated Ringers 500 ML 999 ML IV (08:13)
[2021-05-21] MEDS: Midodrine HCl 5 MG Tablet 10 MG PO ×3 (08:15→17:54)
[2021-05-21] MEDS: 0.9% Saline Lock 10 ML Syringe IV ×2 (08:15→21:16)
--- NOTE | 2021-05-21 10:41 | PN.HOSP_ITS ---
Subjective Subjective Patient seen and examined today. She is much more alert today. She had no active complaints. She remains on levophed at 6mcg/min. Review of systems is otherwise negative. Potassium is elevated at 5.4 today. Cr is down mildly to 2.4 today. Objective Data Objective Data Vital Signs: Vital Signs Temp Pulse Resp BP Pulse Ox 97.8 F 75 20 H 87/49 L 87 05/21/21 03:00 05/21/21 07:00 05/21/21 07:00 05/21/21 09:30 05/21/21 07:00 Oxygen Flow Rate (L/min) 1 Oxygen Delivery Method Room Air Weight: 180 lb 15.992 oz Body Mass Index (BMI) 30.7 Intake & Output: Intake and Output for Last 24 Hours 05/19/21 05/20/21 05/21/21 23:59 23:59 23:59 Intake Total 2029 1482.66 / 1497.66 203.19 / 203.19 Output Total 225 / 225 250 / 250 Balance 2029 1257.66 / 1272.66 -46.81 / -46.81 Lab / Micro Data Result Diagrams: 05/21/21 05:10 05/21/21 05:10 Labs: Laboratory Results - last 24 hr 05/21/21 05:10: WBC 8.6, RBC 2.74 L, Hgb 8.5 L, Hct 27.3 L, MCV 99.6 H, MCH 31.0, MCHC 31.1 L, RDW Std Deviation 67.0 H, RDW Coeff of Tyler 19.7 H, Plt Count 136 L, MPV 9.1, Immature Gran % (Auto) 0.800, Neut % (Auto) 83.0 H, Lymph % (Auto) 10.5 L, [place] % (Auto) 5.1, Eos % (Auto) 0.5, Baso % (Auto) 0.1, Absolute Neuts (auto) 7.1, Absolute Lymphs (auto) 0.90, Nucleated RBC % 1.2, Poly chromasia 1+, Poikilocytosis 2+, Anisocytosis 2+, Tear Drop Cells RARE, Ovalocytes 1+, Devyn Cells 3+ 05/21/21 05:10: Sodium 134 L, Potassium 5.4 H, Chloride 105, Carbon Dioxide 19.0 L, Anion Gap 10, BUN 29 H, Creatinine 2.40 H, Estim Creat Clear Calc 16.54, Est GFR (MDRD) Af Amer 25 L, Est GFR (MDRD) Non-Af 21 L, BUN/Creatinine Ratio 12.1, Glucose 73 L, Calcium 7.9 L, Total Bilirubin 1.30 H, AST 28, ALT 23, Alkaline Phosphatase 97, Total Protein 5.1 L, Albumin 1.9 L, Globulin 3.2, Alb umin/Globulin Ratio 0.6 L 05/21/21 05:10: TSH 13.90 H Micro: Microbiology 05/19/21 22:15 Urine, Catheterized Urine Culture - Preliminary Culture exhibits no growth. Physical Exam Const alert Constitutional Narrative: very frail Orientation / Consciousness: lethargic Exam Limitations: no limitations HEENT head/scalp atraumatic Head and Scalp: normocephalic Mouth: dry mucous membranes Eyes PERRL Eyes Narrative: Icterus Neck no lymphadenopathy, supple and no JVD Resp normal respiratory effort Resp Narrative: diminished breath sounds bibasally, no wheezes, no crackles. on 2L of oxygen by nasal cannula Cardio regular rate, regular rhythm, S1 normal heart sound, S2 normal heart sound and no murmurs GI normal to inspection, nondistended, normoactive bowel sounds, soft to palpation and non-tender GI Narrative: Distended. Nontender. Extremity normal to inspection and full ROM Extremity Narrative: minimal LE edema Skin Skin Narrative: skin is wrinkled and mildly erythematous on LEs. RLE wrapped in bandage. Neuro oriented x3, CN's II-XII intact bilaterally and moves all extremities Sensorium / Orientation: awake and alert Psych affect normal Assessment & Plan Assessment/Plan (1) RICKY (acute kidney injury): (2) Hypovolemic shock: (3) Bilateral pleural effusion: PLAN: #Hypovolemic vs septic shock * still on low dose levophed * on empiric antibiotics. Blood cultures pending * titrate levophed to maintain MAP >65 * * #RICKY with hyperkalemia * likely pre renal due to shock * potassium is 5.4 today. Bicarb is 19 and Cr is down slightly to 2.4 * hold off on fluids due to history of HFrEF * will trend Cr * give kayexalate * #Hyponatremia:improving. Sodium is 134. #Anemia and thrombocytopenia * Hb is 8.5, and platelets are 136. Will monitor. #Recent C Diff colitis * treated at [facility]. * CT showed sequelae of C Diff colitis, but no active infection currently * #Metastatic breast cancer: follows up at [facility]. #Heart failure with reduced ejection fraction * Torsemide on hold on account of shock. Not in exacerbation. #History of A. fib: metoprolol on hold. Transitioned to Lovenox from Eliquis as she is currently NPO DVT prophylaxis: lovenox Charges/Coding Visit Charges Inpatient E&M: 15928 Subs Hosp L3
--- NOTE | 2021-05-21 11:43 | NURSING ---
Son present in pt room. many questions re meds/progress of pt toward going home asked. This RN again disc midodrine/fluid bolus, weaning levophed as able. This RN attempted to care for pt's feet by applying lotion and placing socks on in prep for up to chair. Pt began screaming don't touch me, I don't like it, it hurts. In turn, the son became very agitated. This RN disc if he and this RN remained calm, the pt might also remain calm. Disc pt cont refusal of treatments geared toward her improved health. Pt states I want nothing done, son states we're not letting you . This RN disc possibility of at some time allowing pt wishes to be followed. He simply stated no. This RN left the room. Pt and son continue to disc. Pt yelling loudly at her son. Son sitting with his head bowed at the beside.
--- NOTE | 2021-05-21 11:44 | CASEMGMT ---
Addendum entered by Judith Panda 05/21/21 15:52: SW attended family meeting. Pt's children Bonilla, Azar Castillo and Rhonda in attendance and Emelina on conference call. Children are agreeable that Rhonda is the point of contact for pt. HAL Escudero Original Note: Social Work SW reviewed case and spoke with patient advocate regarding family concerns. Family meeting requested to discuss goals of care. JOSEPHINE met with pt and son Rhonda, who is at bedside, and explained need for family meeting and requested phone numbers of pt's children. Phone call placed to Emelina Castillo Alan and they are agreeable to 2:30 meeting in [facility]. Azar states he will notify Bonilla. Rhonda is informed and agreeable. Bonilla - does not have a phone Jonathan - [phone] Emelina - [phone] Azar - [phone] Rhonda - [phone] Patient Advocate, demand generation manager and Prosthodontist/Educator notified of meeting time. HAL Escudero
[2021-05-21] MEDS: Piperacil/Tazobactam 3.375 GM/50 ML ML IV ×2 (11:59→21:18)
[2021-05-21] MEDS: Enoxaparin 80 MG/0.8 ML Syringe SC (12:01)
[2021-05-21] MEDS: Levothyroxine 25 MCG TABLET PO (17:54)
--- NOTE | 2021-05-21 20:25 | NURSING ---
pt called son сергей and stated that she was bleeding from a wound on her head that supposably nursing did, son very concerned and wanted to see his mother, сергей was escorted to the floor with security so that he could see that she is safe and unharmed. pt is sitting up in chair with call light and cell phone. rn tried to explain to son about hospital delirium and the son took it as the nurse called his mother demented. the rn and charge nurse talked to samy on a number of occasions about the care of the pt and re explained about how hospital delirium. [id number]
[2021-05-21] MEDS: Atorvastatin Calcium 20 MG Tablet PO (21:16)
[2021-05-22] VITALS (22 sets, daily range): BP systolic 82–168; BP diastolic 48–139; PULSE 70–94; RESP 13–20; TEMP 35.8–36.4; O2SAT 90–100
--- NOTE | 2021-05-22 06:19 | PN.CC_ITS ---
Assessment & Plan Assessment/Plan (1) Hypovolemic shock: PLAN: RECOMMENDATIONS: 1. Continue scheduled midodrine. 2. Start gentle IV fluid hydration given n.p.o. status. 3. Speech therapy reevaluation today. 4. Okay to discontinue antimicrobials, given lack of infectious focus. 5. Continue Lovenox as ordered. 6. Encourage incentive spirometer use and mobilize patient as tolerated. 7. The patient is medically stable for transfer out of the intensive care unit. Will sign off from a critical care perspective. IMPRESSIONS: 1. Hypovolemic shock Resolved. The patient initially presented to the hospital with abdominal pain and was found to be hypotensive, which was refractory to fluid resuscitation. The patient was ultimately initiated on vasopressor support to maintain hemodynamic stability. Although septic shock was initially entertained, the patient subsequent infectious work-up was unrevealing. Therefore, septic shock has been ruled out. It is certainly more plausible given the patient's presenting symptoms including diarrhea and poor p.o. intake, that her hypotension was secondary to hypovolemia. The patient has been weaned from vasopressor support. Scheduled midodrine will be continued. Given that the pat ient remains n.p.o. we will start dextrose containing supplemental IV fluids. 2. Acute kidney injury Improving. Likely prerenal in etiology and related to #1. Anticipate stabilization/improvement with volume expansion. Continue to monitor urine output. No current indication for renal replacement therapy. 3. Anemia/thrombocytopenia Continue to monitor blood counts daily. Transfuse for hemoglobin less than 7 g/dL. 4. Recent C. difficile colitis/history of metastatic breast cancer/hypothyroidism/heart failure with reduced ejection fraction, atrial fibrillation Complicates care, management, recovery and prognosis. Hold diuretics. Therapeutic interchange from Eliquis to Lovenox given n.p.o. status. This note was generated with [employer] dictation software. It may contain incorrect words, spelling, and punctuation that were not noted in checking the note before signing. Subjective Subjective The patient was seen and examined at the bedside this morning. Events from the last 24 hours have been reviewed. The patient is currently afebrile, hemodynamically stable and maintaining appropriate oxygen saturations on room air. The patient was able to be weaned off of Levophed completely yesterday. She is currently documented to be overall net +3.5 L for the hospitalization. The patient has remained confused overnight with periods of hallucinations. She remains on antimicrobials, Lovenox and scheduled midodrine. The patient remains n.p.o., pending further evaluation and work-up by speech therapy. Objective Data Objective Data The patient's most recent lab work, culture data and imaging studies have all been personally reviewed. Infectious work-up has been unrevealing to date. Vital Signs: Vital Signs Temp Pulse Resp BP Pulse Ox 97.2 F L 80 17 108/61 95 05/22/21 00:00 05/22/21 04:00 05/22/21 04:00 05/22/21 04:00 05/22/21 04:00 Oxygen Flow Rate (L/min) 1 Oxygen Delivery Method Room Air Weight: 82.1 kg Body Mass Index (BMI) 30.7 Intake & Output: Intake and Output for Last 24 Hours 05/20/21 05/21/21 05/22/21 23:59 23:59 23:59 Intake Total 1482.66 / 1497.66 771.09 / 771.09 50 / 50 Output Total 225 / 225 550 / 550 Balance 1257.66 / 1272.66 221.09 / 221.09 50 / 50 Lab / Micro Data Attestation: I reviewed the patient's lab results. Result Diagrams: 05/22/21 04:30 05/22/21 04:30 Labs: Laboratory Results - last 24 hr 05/21/21 05:10: TSH 13.90 H Micro: Microbiology 05/19/21 22:15 Urine, Catheterized Urine Culture - Preliminary Culture exhibits no growth. Physical Exam Const alert Constitutional Narrative: Sitting in bedside recliner. General Appearance: cooperative and frail Orientation / Consciousness: confused Nutritional Appearance: cachectic HEENT normocephalic and head/scalp atraumatic Eyes PERRL and EOMs intact bilaterally Neck supple General: trachea midline Chest inspection of chest normal Resp normal respiratory effort Auscultation: diminished lung sounds Cardio regular rate and regular rhythm GI normal to inspection, nondistended, normoactive bowel sounds Extremity General Extremity: edema Skin General Skin Exam: venous stasis and dermatitis Neuro no focal motor deficits Psych Psych Narrative: Intermittently agitated. Charges/Coding Visit Charges Inpatient E&M: 03886 Subs Hosp L3
[2021-05-22] MEDS: Levothyroxine 25 MCG TABLET PO (06:31)
[2021-05-22 06:42] LABS: Anion Gap 6 (5-15); BUN 29 mg/dL (7-18); BUN/Creat Ratio 12.8 RATIO (10-20); Calcium,Total 7.9 mg/dL (8.5-10.1); Chloride 109 mmol/L (98-107); Creatinine, Serum 2.27 mg/dL (0.55-1.02); EST Glomerular Filtration Rate 22 mL/min (>60); Est Glom Filt Rate - Afr Amer 27 mL/min (>60); Estimated Creatinine Clearance 17.49 ml/min; Glucose 53 mg/dL (74-106); Potassium 5.3 mmol/L (3.5-5.1); Sodium Level 135 mmol/L (136-145)
[2021-05-22 07:33] LABS: Absolute Lymphocyte Count 0.69 X10^3/uL (0.83-4.51); Absolute Neutrophil Count 5.4 X10^3/uL (2.0-7.7); Basophil# 0.02 X10^3/uL; Basophil% 0.3 % (0-1); Eosinophil# 0.06 X10^3/uL; Eosinophils% 0.9 % (0-5); Hematocrit 28.1 % (37-47); Hemoglobin 8.7 g/dL (12.0-15.0); Lymphocyte # 0.69 X10^3/ul (0.83-4.51); Lymphocyte % 10.5 % (19-41); Mean Corpuscular Hgb 31.1 pg (27.0-32.0); Mean Corpuscular Volume 100.4 fL (81-99); Monocyte# 0.37 X10^3/uL; Monocyte% 5.6 % (0-10); NRBC Flagged by Analyzer 1.5 % (0-5); Neutrophil # 5.39 X10^3/uL (2.7-7.7); Neutrophil % 82.1 % (47-70); POSITIVE MORPHOLOGY YES; Platelet Count 122 K/mm3 (150-450); RBC Distribution Width CV 19.9 % (11.6-14.6); RBC Distribution Width SD 69.2 fl (35.1-43.9); White Blood Count 6.6 K/mm3 (4.4-11.0)
[2021-05-22 07:37] LABS: Differential Indicated SCAN CRITERIA MET
[2021-05-22 08:06] LABS: Anisocytosis 2+; Crenated RBC 1+; Schistocytes 1+
[2021-05-22] MEDS: Midodrine HCl 5 MG Tablet 10 MG PO ×3 (10:13→17:30)
[2021-05-22] MEDS: Enoxaparin 80 MG/0.8 ML Syringe SC (10:14)
--- NOTE | 2021-05-22 10:22 | PN.HOSP_ITS ---
Subjective Subjective Patient seen and examined. She was much more alert and communicative today. She has no active complaints. SHe is awaiting evaluation by speech therapy. She has remained off levophed; BP is running in the 80s systolic. Objective Data Objective Data Vital Signs: Vital Signs Temp Pulse Resp BP Pulse Ox 97.2 F L 88 16 84/48 L 95 05/22/21 00:00 05/22/21 06:00 05/22/21 06:00 05/22/21 06:00 05/22/21 06:00 Oxygen Flow Rate (L/min) 1 Oxygen Delivery Method Room Air Weight: 180 lb 15.992 oz Body Mass Index (BMI) 30.7 Intake & Output: Intake and Output for Last 24 Hours 05/20/21 05/21/21 05/22/21 23:59 23:59 23:59 Intake Total 1482.66 / 1497.66 771.09 / 771.09 50 / 50 Output Total 225 / 225 550 / 550 200 / 200 Balance 1257.66 / 1272.66 221.09 / 221.09 -150 / -150 Lab / Micro Data Result Diagrams: 05/22/21 04:30 05/22/21 04:30 Labs: Laboratory Results - last 24 hr 05/22/21 04:30: Sodium 135 L, Potassium 5.3 H, Chloride 109 H, Carbon Dioxide 20.0 L, Anion Gap 6, BUN 29 H, Creatinine 2.27 H, Estim Creat Clear Calc 17.49, Est GFR (MDRD) Af Amer 27 L, Est GFR (MDRD) Non-Af 22 L, BUN/Creatinine Ratio 12.8, Glucose 53 L, Calcium 7.9 L 05/22/21 04:30: WBC 6.6, RBC 2.80 L, Hgb 8.7 L, Hct 28.1 L, MCV 100.4 H, MCH 31.1, MCHC 31.0 L, RDW Std Deviation 69.2 H, RDW Coeff of Tyler 19.9 H, Plt Count 122 L, MPV 10.0, Immature Gran % (Auto) 0.600, Neut % (Auto) 82.1 H, Lymph % (Auto) 10.5 L, [place] % (Auto) 5.6, Eos % (Auto) 0.9, Baso % (Auto) 0.3, Absolute Neuts (auto) 5.4, Absolute Lymphs (auto) 0.69 L, Nucleated RBC % 1.5, Anisocytosis 2+, Crenated Cell 1+, Schistocytes 1+ Micro: Microbiology 05/19/21 22:15 Urine, Catheterized Urine Culture - Final Culture exhibits no growth. 05/19/21 20:38 Blood Culture (Wb) - Anticubital Left Blood Culture - Preliminary No growth in 48 hours. 05/19/21 21:16 Blood Culture (Wb) - Left Wrist Blood Culture - Preliminary No growth in 48 hours. Physical Exam Const alert and oriented x3 Constitutional Narrative: very frail Exam Limitations: no limitations Nutritional Appearance: cachectic HEENT head/scalp atraumatic Head and Scalp: normocephalic Eyes PERRL Eyes Narrative: Icterus Neck no lymphadenopathy, supple and no JVD Resp normal respiratory effort Resp Narrative: diminished breath sounds bibasally, no wheezes, no crackles. on room air. Cardio regular rate, regular rhythm, S1 normal heart sound, S2 normal heart sound and no murmurs GI normal to inspection, nondistended, normoactive bowel sounds, soft to palpation and non-tender GI Narrative: Distended. Nontender. Extremity normal to inspection and full ROM Extremity Narrative: minimal LE edema Skin Skin Narrative: skin is wrinkled and mildly erythematous on LEs. RLE wrapped in bandage. Neuro oriented x3, CN's II-XII intact bilaterally and moves all extremities Sensorium / Orientation: awake and alert Psych affect normal Assessment & Plan Assessment/Plan (1) RICKY (acute kidney injury): (2) Hypovolemic shock: (3) Bilateral pleural effusion: PLAN: #Hypovolemic vs septic shock * weaned off levophed and has stayed off of it. * BPs are still marginal * antibiotics discontinued today as there is no clear focus of infection * started on midodrine. * #RICKY with hyperkalemia * likely pre renal due to shock * CR has trended down to 2.27. Potassium is 5.3 today. * give kayexalate o/a of hyperkalemia. * being gently hydrated with IVF * #Hyponatremia:improving. Sodium is 134. #Anemia and thrombocytopenia * Hb is 8.7, and platelets are 122. Will monitor. #Recent C Diff colitis * treated at [facility]. * CT showed sequelae of C Diff colitis, but no active infection currently * #Metastatic breast cancer: follows up at [facility]. #Dysphagia * for speech therapy evaluation today. * #Heart failure with reduced ejection fraction * Torsemide on hold on account of shock. Not in exacerbation. #History of A. fib: metoprolol on hold. Transitioned to Lovenox from Eliquis as she is currently NPO DVT prophylaxis: lovenox Disposition: transfer out of ICU today Charges/Coding Visit Charges Inpatient E&M: 70350 [facility] Hosp L3
[2021-05-22] MEDS: Dext 5%-0.45% NS 1,000 ML 100 ML IV ×2 (10:23→20:51)
--- NOTE | 2021-05-22 17:32 | SP.MBSS_ITS ---
Modified Barium Swallow - Patient Information Study Date: 05/22/21 Study Time: 13:00 Direct Billable Minutes: 150 Total Minutes procedure & reportin Diagnosis: Progressive weakness Referring Physician: Kortney Bella Reason for Referral: Suspected dysphagia; Pt and caregiver report of swallowing difficulties at home. Medical History: PMH: Breast cancer, CAD (coronary artery disease), Chronic acquired lymphedema, Chronic CHF, HLD (hyperlipidemia), HTN (hypertension) Obesity (BMI 30.0-34.9),Osteoporosis, Right leg DVT KAYLYN GUTIERREZ, is a 80 F who presents with progressive weakness. Patient was discharged from [facility] on with C. difficile colitis. Patient was discharged home but while at home, patient has not been eating or drinking much. Patient presented to the emergency room with elevated creatinine as well as potassium. Patient received IV fluids as well as dextrose, insulin, albuterol. She underwent a CT of her abdomen pelvis that showed mild ascites, enlarged liver with probable left hepatic cyst, diffuse osseous metastasis and anasarca. Apparently patient has been noticing increasing lower extremity edema. Patient's blood pressures were variable but overall has been hypotensive, please review the hospice note placed earlier by myself, but essentially they do not want central line because patient's prior history of a porch you have noticed what explained to only be a temporary procedure to administer pressor agents. Speech therapy consulted d/t Pt stating I've had difficulty chewing and swallowing for a while, my son has to frequently pat me on the back to get food unstuck. Per [place], patient's son, patient was to have Barium swallow done at [facility] over a year ago, but they never got back to them to schedule. Nursing made Pt NPO w/no nursing swallow screening d/t significant hx of dysphagia. Following speech therapy BSE, Pt remained NPO w/ice chip liberties, however ice chips later ceased d/t change in respiratory status. Current Diet Ordered: NPO Mental Status: Impaired - Pt w/impaired cognition. Unable to follow simple 1 step directions at bedside and throughout this assessment. - Penetration-Aspiration Scale Penetration-Aspiration Scale: OBJECTIVE ASSESSMENT OF SWALLOW FUNCTION (QUANTITATIVE ? PER TRIAL): PENETRATION / ASPIRATION SCALE (SAINZ): 1 = does not enter airway 2 = enters airway/above vocal folds/ejected 3 = enters airway/above vocal folds/not ejected 4 = enters airway/contacts vocal folds/ejected 5 = enters airway/contacts vocal folds/not ejected 6 = enters airway/below vocal folds/ejected 7 = enters airway/below vocal folds/not ejected despite effort 8 = enters airway/below vocal folds/no effort VIDEOFLOROSCOPIC SCALE SCORE (SAINZ): Grade I = aspiration of material that has penetrated into the laryngeal vestibule, intact cough reflex Grade II = aspiration < 10 % of the bolus, intact cough reflex Grade III = aspiration of < 10 % of the bolus, reduced cough reflex or aspiration of > 10 % of the bolus, intact cough reflex Grade IV = aspiration of > 10 % of the bolus, reduced cough reflex - Penetration-Aspiration Scale Score Thin Liquid via teaspoon Result: 1= does not enter airway - increased oral residue, clears w/cued second swallow Thin Liquid via sequential sips from cup Result: 3= enters airways/above vocal folds/not ejected - upper 1/3 of esophagus revealing retention Thin Liquid via small single sip from cup Result: 2= enter airway/above vocal folds/ejected Thin Liquid via single sip from straw Result: 2= enter airway/above vocal folds/ejected [place] Thick Liquid via small single sip from cup Result: 2= enter airway/above vocal folds/ejected Pudding Result: 2= enter airway/above vocal folds/ejected - Pt presenting inattention to bolus; significantly increased mastication time; severe retention and retrograde flow of bolus Thin Liquid via small single sip from cup Trial 2 Result: 5= enters airways/contacts vocal folds/not ejected - Utilized as liquid chaser; Clears residue from pudding trial, however significant penetration of contrast Cookie Result: 2= enter airway/above vocal folds/ejected - Contrast below PES from previous trial cleared; POOR lingual and rotary mastication of cookie; residue collection in vallecula from cookie w/significant oral residue requiring multiple swallows Thin Liquid via small single sip from cup Trial 3 Result: 1= does not enter airway - Clears pharyngeal residue. - Oral Phase Labial Seal: No Labial Escape Tongue Control During Bolus Hold: Escape to lateral buccal cavity/floor of mouth Bolus Preparation/Mastication: Minimal chewing/mashing with majority of bolus unchewed Bolus Transport/Lingual Motion: Repetitive/disorganized tongue motion Oral Residue: Residue collection on oral structures - Pharyngeal Phase Initiation of Pharyngeal Swallow: Bolus head in valleculae Soft Palate Elevation: Trace column of contrast/air between soft palate and pharyngeal wall Laryngeal Elevation: Partial superior movement thyroid cart/partial apprx aryt- epig petiole Anterior Hyoid Excursion: Partial anterior movement Epiglottic Movement: Complete inversion Laryngeal Vestibule Closure at Height of Swallow: Incomplete; narrow column of air/contrast in laryngeal vestibule Pharyngeal Stripping Wave: Present - diminished Pharyngoesophageal Segment Opening: Minimal distension and minimal duration; marked obstruction of flow Tongue Base Retraction: Trace column of contrast between tongue base & post. pharyngeal wall Pharyngeal Residue: Minimal to no pharyngeal clearance - Pt benefiting from liquid chaser to reduce/clear residue; however, penetrated thin liquid following pudding trial - Esophageal Phase Esophageal Clearance: Esophageal retention - Evident in upper 1/3 - Treatment Strategies Effects of treatment strategies attemped:: 3 second prep = EFFECTIVE Cough and reswallow = NOT EFFECTIVE, weak cough Effort swallow = NOT EFFECTIVE, reduced pharyngeal strength Double swallow = EFFECTIVE for liquids, not solids Liquid chaser = EFFECTIVE to clear solid residue, however resulting in penetration of contrast Reduced bolus size = EFFECTIVE - Diagnosis/Impression Diagnosis: Severe Oropharyngeal Dysphagia (R13.12) Impression: The oral phase is primarily marked by: * SEVERE mastication inefficiency and suboptimal lingual control of bolus w/noted significantly reduced lingual lateralization resulting in moderate- severe AP transfer efficiency and mod-severe oral residue post deglutition. Pt requiring multiple swallows. Benefited from liquid chaser to clear residue; however presented w/penetration of liquid chaser to VF post deglutition. * Swallow onset delay resulting in premature loss of less than half of bolus on liquid trials to the valleculae. The pharyngeal phase is primarily marked by: * Delayed pharyngeal swallow onset timing resulting w/head of bolus in pyriform sinus contributing to both pre-prandial and prandial aspiration * No epiglottic inversion resulting in reduced closure of the airway during deglutition * POOR pharyngeal motility attributed to reduced tongue base retraction, reduced posterior pharyngeal stripping wave, and SEVERE PES distention and duration resulting in severe pharyngeal retention within the valleculae and pyriform sinuses contributing to post-prandial penetration. Pt unable to clear residue independently following multiple reswallows. * Reduced laryngeal elevation and anterior hyoid excursion resulting in laryngeal vestibule closure and reduced PES distention * Noted insufficient and inconsistent cough response to expel penetrated material. Cough response not significant to eject contrast. The esophageal phase is primarily marked by: * SEVERE retention and retrograde flow above PES in the upper 1/3 of esophagus * Complete clearance of contrast in the lower 2/3 of esophagus during pudding trial and following liquid chaser. Diet Recommended: FULL LIQUID (w/thins) w/consideration for alternative means of nutrition/hydration/medication w/implementation vs. continuation of PO intake for pleasure only w/ comfort care measures in place. Repeat MBSS: Yes, in 4-6 weeks following intensive skilled speech therapy Referrals: Would further consider additional assessment of the Pt's esophageal functioning, as it is outside the scope of the modified barium swallow study to objectively assess esophageal functioning, may additionally consider further workup via mail carrier and clerk. Education Provided: - Findings were discussed w/Pt immediately following MBSS conclusion - Findings were discussed w/Pt's caregiver at bedside re: diet recommendations and need for alternative means of nutrition/hydration/medication vs. PO intake for pleasure only w/comfort measures in place. Pt and family would continue to benefit from education. - Discussed result of MBSS nursing case manager specialist and Dr. Bella who were agreeable to recommendations. Patient requires intensive skilled speech-language intervention targeting: - education re: new diet recommendations - training and implementation of recommended oropharyngeal strengthening exercises to facilitate improved pharyngeal motility w/hyolaryngeal elevation and excursion, tongue base retraction, and PES distention and duration (Anjelica, Nadine, Shaker, Effortful Swallows) - Status Active ST Patient: Active - Contact Information [facility] Speech Therapy:: Ben Woods.S., CF-BACK CLOSER [facility] [address] [place] [address] [email or web address] 05/22/21 18:21
[2021-05-22] MEDS: Atorvastatin Calcium 20 MG Tablet PO (20:54)
[2021-05-22] MEDS: Albuterol 2.5 MG/3 ML VIAL.NEB. INHALATION (21:25)
--- NOTE | 2021-05-22 22:58 | NURSING ---
Extensive amount of time spent discussing pt condition and education with both son Rhonda and Jonah. Both were very receptive to this RN. Both verbalized appreciation for information.
--- NOTE | 2021-05-22 23:28 | NURSING ---
dr pan and 2 rns in the room talking to the the son сергей and another son on speaker phone. we are to do everything for the pt. FULL CODE.
--- NOTE | 2021-05-22 23:37 | PCM.HOSP.N ---
Hospitalist Note Notified by nursing the patient's systolic blood pressure was 60. Earlier, patient's IV fluids were hep-locked as patient was having seepage from her lymphedema. Went to see her and patient's blood pressure was actually much higher with a MAP of 65. Patient's son, Rhonda, was there and on the phone with his brother. Asked him what he want to do if the patient's blood pressure dropped again and he stated we will cross that bridge when he get to it. But basically did not want us to put in a central line and that he would want that to be performed at the [facility]. He and his brother made aware that there are no available beds and it may be several more days before she could even get a bed there. He remains steadfast in fact that he does not want a central line placed here in her. Did not give specific reasons other than they have plenty of doctors. They said they have doctors to oversee other doctors. I told him that that is usually residents were overseen by the fellows or attendings. I recommended hospice to which his brother over the phone so that was bullshit. Cast was saying that this is his mother. And that they are not ready to give up yet. I explained that proceeding with hospice is not giving up but to make her comfortable as her overall condition is poor. He was remarking about how she looked earlier today this morning where she is more alert. Patient is very somnolent at this time. Does present with the charge nurse as well as the patient's nurse on floor during this encounter. I feel that the patient's sons Thad the brother he was on the phone with, did not get his name, have unrealistic expectations and are giving him mixed messages when they said they want everything done but they pick and choose what that everything should be. Get a feeling that they feel that I should be able to discharge patient so they can take her up to [facility]. I told them that she is not medically stable for discharge at this time. They were reminded to the can take the patient out AGAINST MEDICAL ADVICE if they feel and are not adequately caring for the patient but also reinforced the fact that they are limiting overall what we can do for her. Again reminded that insurance would not pay for her ambulance ride up to [facility].
[2021-05-23] VITALS (17 sets, daily range): BP systolic 73–103; BP diastolic 34–57; PULSE 78–82; RESP 16–20; TEMP 36–36.3; O2SAT 96–100
[2021-05-23] MEDS: Menthol/Lanolin/Calamine/Znox 113 GM Tube 1 APPLIC TOPICAL ×4 (01:38→21:58)
[2021-05-23] MEDS: Nystatin Powder 15gm Bottle 1 APPLIC TOPICAL ×4 (01:38→21:58)
[2021-05-23] MEDS: Albuterol 2.5 MG/3 ML VIAL.NEB. INHALATION (03:30)
[2021-05-23] MEDS: Levothyroxine 25 MCG TABLET PO (05:01)
--- NOTE | 2021-05-23 05:08 | NURSING ---
pt has very poor swallowing ability, did get the crushed pills down w applesauce, pt did have some coughing and clearing of the throat.
[2021-05-23 07:00] LABS: Absolute Lymphocyte Count 0.59 X10^3/uL (0.83-4.51); Absolute Neutrophil Count 4.4 X10^3/uL (2.0-7.7); Basophil# 0.01 X10^3/uL; Basophil% 0.2 % (0-1); Eosinophil# 0.04 X10^3/uL; Eosinophils% 0.7 % (0-5); Hematocrit 24.5 % (37-47); Hemoglobin 7.7 g/dL (12.0-15.0); Lymphocyte # 0.59 X10^3/ul (0.83-4.51); Lymphocyte % 10.8 % (19-41); Mean Corp Hgb Conc 31.4 g/dL (32-36); Mean Corpuscular Volume 98.8 fL (81-99); Mean Platelet Vol. 9.3 fl (6.2-12.0); Monocyte# 0.41 X10^3/uL; Monocyte% 7.5 % (0-10); NRBC Flagged by Analyzer 1.3 % (0-5); Neutrophil # 4.38 X10^3/uL (2.7-7.7); Neutrophil % 79.9 % (47-70); POSITIVE DIFFERENTIAL YES; POSITIVE MORPHOLOGY YES; Platelet Count 111 K/mm3 (150-450); RBC Distribution Width CV 20.1 % (11.6-14.6); Red Blood Count 2.48 M/mm3 (4.2-5.4); White Blood Count 5.5 K/mm3 (4.4-11.0)
[2021-05-23 07:03] LABS: Differential Indicated SCAN CRITERIA MET
[2021-05-23 07:26] LABS: Anion Gap 9 (5-15); BUN 26 mg/dL (7-18); BUN/Creat Ratio 12.7 RATIO (10-20); Calcium,Total 7.7 mg/dL (8.5-10.1); Chloride 111 mmol/L (98-107); Creatinine, Serum 2.05 mg/dL (0.55-1.02); EST Glomerular Filtration Rate 25 mL/min (>60); Est Glom Filt Rate - Afr Amer 30 mL/min (>60); Estimated Creatinine Clearance 19.37 ml/min; Glucose 79 mg/dL (74-106); Potassium 4.7 mmol/L (3.5-5.1); Sodium Level 136 mmol/L (136-145)
[2021-05-23 07:43] LABS: Anisocytosis 2+
[2021-05-23] MEDS: Midodrine HCl 5 MG Tablet 10 MG PO ×3 (08:51→17:40)
[2021-05-23] MEDS: Enoxaparin 80 MG/0.8 ML Syringe SC (08:51)
--- NOTE | 2021-05-23 10:53 | NURSING ---
Jonah Khan called asking for an update on his mother. This RN explained to Jonah that it is our policy to funnel all updates through one family member to avoid multiple phonecalls throughout the day. Jonah expressed anger and frustration over this policy and asked to speak to the patient advocate or Shelia Carpenter. Phone sue forwarded to Shelia crenshaw
--- NOTE | 2021-05-23 11:06 | NURSING ---
Update provided to [place] that patient has been approved to [facility] but is awaiting a bed.
--- NOTE | 2021-05-23 15:23 | PN.HOSP_ITS ---
Subjective Subjective Patient seen and examined. She has no active complaints today. She failed her swallow evaluation and is due for a modified barium swallow today. Review of systems is otherwise negative. She has remained hemodynamically stable. Objective Data Objective Data Vital Signs: Vital Signs Temp Pulse Resp BP Pulse Ox 97.3 F L 79 18 103/55 L 100 05/23/21 08:51 05/23/21 08:51 05/23/21 08:51 05/23/21 08:51 05/23/21 08:51 Oxygen Flow Rate (L/min) 3 Oxygen Delivery Method Nasal Cannula Weight: 180 lb 15.992 oz Body Mass Index (BMI) 30.7 Intake & Output: Intake and Output for Last 24 Hours 05/21/21 05/22/21 05/23/21 23:59 23:59 23:59 Intake Total 771.09 / 771.09 1258.33 / 1258.33 Output Total 550 / 550 525 / 525 120 / 120 Balance 221.09 / 221.09 733.33 / 733.33 -120 / -120 Lab / Micro Data Result Diagrams: 05/23/21 06:09 05/23/21 06:09 Labs: Laboratory Results - last 24 hr 05/23/21 06:09: WBC 5.5, RBC 2.48 L, Hgb 7.7 L, Hct 24.5 L, MCV 98.8, MCH 31.0, MCHC 31.4 L, RDW Std Deviation 69.0 H, RDW Coeff of Tyler 20.1 H, Plt Count 111 L, MPV 9.3, Immature Gran % (Auto) 0.900, Neut % (Auto) 79.9 H, Lymph % (Auto) 10.8 L, [place] % (Auto) 7.5, Eos % (Auto) 0.7, Baso % (Auto) 0.2, Absolute Neuts (auto) 4.4, Absolute Lymphs (auto) 0.59 L, Nucleated RBC % 1.3, Anisocytosis 2+ 05/23/21 06:09: Sodium 136, Potassium 4.7, Chloride 111 H, Carbon Dioxide 16.0 L , Anion Gap 9, BUN 26 H, Creatinine 2.05 H, Estim Creat Clear Calc 19.37, Est GFR (MDRD) Af Amer 30 L, Est GFR (MDRD) Non-Af 25 L, BUN/Creatinine Ratio 12.7, Glucose 79, Calcium 7.7 L Micro: Microbiology 05/19/21 22:15 Urine, Catheterized Urine Culture - Final Culture exhibits no growth. 05/19/21 20:38 Blood Culture (Wb) - Anticubital Left Blood Culture - Preliminary No growth in 48 hours. 05/19/21 21:16 Blood Culture (Wb) - Left Wrist Blood Culture - Preliminary No growth in 48 hours. Physical Exam Const alert and oriented x3 Constitutional Narrative: very frail Orientation / Consciousness: lethargic Exam Limitations: no limitations Nutritional Appearance: cachectic HEENT head/scalp atraumatic Head and Scalp: normocephalic Eyes PERRL Eyes Narrative: Icterus Neck no lymphadenopathy, supple and no JVD Resp normal respiratory effort Resp Narrative: diminished breath sounds bibasally, no wheezes, no crackles. on room air. Cardio regular rate, regular rhythm, S1 normal heart sound, S2 normal heart sound and no murmurs GI normal to inspection, nondistended, normoactive bowel sounds, soft to palpation and non-tender GI Narrative: Distended. Nontender. Extremity normal to inspection and full ROM Extremity Narrative: minimal LE edema Peripheral Pulses: Yes pulses 2+ throughout Skin Skin Narrative: skin is wrinkled and mildly erythematous on LEs. RLE wrapped in bandage. Neuro oriented x3, CN's II-XII intact bilaterally and moves all extremities Sensorium / Orientation: awake and alert Psych affect normal Assessment & Plan Assessment/Plan (1) RICKY (acute kidney injury): (2) Hypovolemic shock: (3) Bilateral pleural effusion: PLAN: #Hypovolemic vs septic shock * off levophed. * BPs are better today, in the 100s systolic. * antibiotics discontinued today as there is no clear focus of infection * started on midodrine. * #RICKY with hyperkalemia * likely pre renal due to shock * CR has trended down to 2.05. * give kayexalate o/a of hyperkalemia. * being gently hydrated with IVF * #Hyponatremia: Resolving. Sodium is 136. #Anemia and thrombocytopenia * Hb is 8.7, and platelets are 122. Will monitor. #Recent C Diff colitis * treated at [facility]. * CT showed sequelae of C Diff colitis, but no active infection currently * #Metastatic breast cancer: follows up at [facility]. Acepted for transfer to [facility] today o/a of metastatic breast cancer. #Non anion gap metabolic acidosis * bicarb is 16. ANion gap is 9. Likely due to RICKY. * if it persists, will benefit from oral bicarb, once she passes swallow evaluation. * #Dysphagia * speech therapy on board. Failed speech therapy evaluation. For modified barium swallow today * #Heart failure with reduced ejection fraction * Torsemide on hold on account of shock. Not in exacerbation. #History of A. fib: metoprolol on hold. Transitioned to Lovenox from [place] as she is currently NPO DVT prophylaxis: lovenox Disposition: awaiting transfer to [facility]. Charges/Coding Visit Charges Inpatient E&M: 33514 Subs Hosp L2
[2021-05-23] MEDS: Atorvastatin Calcium 20 MG Tablet PO (21:57)
[2021-05-24 03:59] VITALS: PULSE 80
[2021-05-24 04:15] VITALS: BP 92/50; PULSE 82; RESP 18; TEMP 36.3; O2SAT 100
[2021-05-24] MEDS: Albuterol 2.5 MG/3 ML VIAL.NEB. INHALATION (04:33)
[2021-05-24 04:34] VITALS: PULSE 80; RESP 18
--- NOTE | 2021-05-24 05:01 | NURSING ---
Room received from [place] [address] [address] oncology floor[address] Dr. Kiser aware. Accepting physician is Dr. Orta.
[2021-05-24] MEDS: Nystatin Powder 15gm Bottle 1 APPLIC TOPICAL (05:31)
[2021-05-24] MEDS: Menthol/Lanolin/Calamine/Znox 113 GM Tube 1 APPLIC TOPICAL (05:31)
--- NOTE | 2021-05-24 06:02 | NURSING ---
Room assignment has changed at [facility] to G-111, Bed 12 due to recent C.Difficile dx at [facility]. Called report to new floor.
[2021-05-24 07:00] VITALS: PULSE 80
[2021-05-24 07:57] LABS: Absolute Lymphocyte Count 0.74 X10^3/uL (0.83-4.51); Absolute Neutrophil Count 3.2 X10^3/uL (2.0-7.7); Basophil# 0.02 X10^3/uL; Basophil% 0.4 % (0-1); Eosinophil# 0.08 X10^3/uL; Eosinophils% 1.8 % (0-5); Hemoglobin 7.8 g/dL (12.0-15.0); Lymphocyte # 0.74 X10^3/ul (0.83-4.51); Lymphocyte % 16.4 % (19-41); Mean Corp Hgb Conc 31.2 g/dL (32-36); Mean Corpuscular Hgb 31.3 pg (27.0-32.0); Mean Corpuscular Volume 100.4 fL (81-99); Mean Platelet Vol. 9.1 fl (6.2-12.0); Monocyte# 0.48 X10^3/uL; Monocyte% 10.6 % (0-10); NRBC Flagged by Analyzer 2.2 % (0-5); Neutrophil # 3.16 X10^3/uL (2.7-7.7); Neutrophil % 70.1 % (47-70); POSITIVE MORPHOLOGY YES; Platelet Count 115 K/mm3 (150-450); RBC Distribution Width CV 20.5 % (11.6-14.6); RBC Distribution Width SD 72.4 fl (35.1-43.9); Red Blood Count 2.49 M/mm3 (4.2-5.4); White Blood Count 4.5 K/mm3 (4.4-11.0)
[2021-05-24 08:06] LABS: Differential Indicated SCAN CRITERIA MET
[2021-05-24 08:21] LABS: Anion Gap 7 (5-15); BUN 24 mg/dL (7-18); BUN/Creat Ratio 12.2 RATIO (10-20); Calcium,Total 7.9 mg/dL (8.5-10.1); Chloride 111 mmol/L (98-107); Creatinine, Serum 1.97 mg/dL (0.55-1.02); EST Glomerular Filtration Rate 26 mL/min (>60); Est Glom Filt Rate - Afr Amer 31 mL/min (>60); Estimated Creatinine Clearance 20.15 ml/min; Glucose 112 mg/dL (74-106); Potassium 4.6 mmol/L (3.5-5.1); Sodium Level 139 mmol/L (136-145)
--- NOTE | 2021-05-24 08:21 | NURSING ---
Report given to physicians ambulance, pt loaded onto cot. Left w/ belongings for [facility].
--- NOTE | 2021-05-24 08:31 | NURSING ---
Son requesting pt to have some pudding before leaving for [facility]. Per nightshift RN report, pt had significant difficulty swallowing the bite of applesauce w/ her evening meds in it, as well as one swallow of ensure. No PO intake given at this time d/t reported difficulty swallowing.
[2021-05-24 08:50] LABS: Anisocytosis 1+; Hypochromasia 2+; Macrocytosis 1+; Ovalocyte RARE; Platelet Estimate SLT DEC (ADEQ); Polychromasia 1+; Tear Drop Cell RARE
--- NOTE | 2021-05-24 17:47 | DS.PCM_ITS ---
Providers Date of Admission: 05/20/21 Primary Care Physician: Dr. Herve Mcfadden MD Consultations 05/20/21 07:26 Consult: Research Chef / Pulmonary Medicine Routine Consulting Provider: Pulmonary Medicine clemente Peterson Reason for Consult: shock EMERGENT Consult: No MD Notified: Yes Date Notified: 05/20/21 Time Notified: 05:37 Method of Notification: Verbal 05/20/21 11:49 Consult: Onc/Wound/financial intern Routine Comment: Reason For Visit: RICKY, SHOCK Diagnosis Discharge Diagnosis (1) RICKY (acute kidney injury): Status: Acute Code(s): N17.9 - Acute kidney failure, unspecified (2) Hypovolemic shock: Status: Acute Code(s): R57.1 - Hypovolemic shock (3) Bilateral pleural effusion: Status: Acute Code(s): J90 - Pleural effusion, not elsewhere classified Medications at Discharge Home Medications albuterol sulfate [ProAir HFA] 1 - 2 puff INHALATION Q6H PRN PRN 10/19/14 acetaminophen [Tylenol] 325 - 650 mg PO Q6H PRN PRN 08/26/18 atorvastatin 20 mg PO QHS 07/20/19 Eliquis 2.5 mg PO BID 05/19/21 levothyroxine 25 mcg PO DAILY 05/19/21 metoprolol succinate 25 mg PO DAILY 05/19/21 potassium chloride 10 meq PO DAILY 05/19/21 torsemide 20 mg PO DAILY 05/19/21 Hospital Course Operations None Procedures None Summary of Care Provided Minutes Spent on Discharge: 40 Hospital Course: Patient is an 80-year-old female with an extensive past medical history as outlined who was admitted through the ED on 05/19/2021 with a complaint of abdominal pain and failure to thrive. Patient had just been discharged from [facility] on May 10 after being treated for C. difficile colitis and UTI. According to her son, upon getting home, patient had not been improving and had had very decreased intake as well as diarrhea. On admission, patient was noted to be hypotensive with blood pressure being 73/40 at time of admission. WBC was noted to be 11,000 and hemoglobin was 8.6 with platelet count of 1 37,000. Chemistry was significant for sodium of 129. She was admitted and managed for shock, hypovolemic versus septic shock. Of note, chest x-ray showed bilateral pleural effusions and CT of the abdomen and pelvis also showed bilateral pleural effusions with cardiomegaly, anasarca and diffuse osseous metastasis and sequelae of C. difficile. She was started on IV fluids but blood pressure was refractory so she was started on Levophed through peripheral line. Son refused central line placement and said he would only allow central line to be placed at the [facility]. Son requested transfer to [facility] but there was no bed available at time of admission. She was hydrated with IV fluids and was kept on Levophed. She was started on broad-spectrum antimicrobials as empiric tr eatment. Blood cultures obtained were negative. Patient was gradually weaned off of Levophed and kidney function improved. She was transferred out of the ICU to the regular floor. Patient had dysphagia and so had a swallowing test which showed evidence of aspiration. Patient was scheduled to have modified barium swallow. Patient was accepted at the [facility] on 05/24/2021 and so was transferred to the [facility] on 05/24/2021. Patient left early in the morning and so I could not review and examined patient before she left. Weight / BMI Weight Weight: 180 lb 15.992 oz Body Mass Index (BMI) 30.7 ABG / Lab / Microbiology Data Result Diagrams: 05/24/21 07:12 05/24/21 07:12 Laboratory: Laboratory Results - last 24 hr 05/24/21 07:12: WBC 4.5, RBC 2.49 L, Hgb 7.8 L, Hct 25.0 L, MCV 100.4 H, MCH 31.3, MCHC 31.2 L, RDW Std Deviation 72.4 H, RDW Coeff of [place] 20.5 H, Plt Count 115 L, MPV 9.1, Immature Gran % (Auto) 0.700, Neut % (Auto) 70.1 H, Lymph % (Auto) 16.4 L, [place] % (Auto) 10.6 H, Eos % (Auto) 1.8, Baso % (Auto) 0.4, Absolute Neuts (auto) 3.2, Absolute Lymphs (auto) 0.74 L, Nucleated RBC % 2.2, Platelet Estimate SLT DEC, Polychromasia 1+, Hypochromasia 2+, Anisocytosis 1+, Macrocytosis 1+, Tear Drop Cells RARE, Ovalocytes RARE 05/24/21 07:12: Sodium 139, Potassium 4.6, Chloride 111 H, Carbon Dioxide 21.0, Anion Gap 7, BUN 24 H, Creatinine 1.97 H, Estim Creat Clear Calc 20.15, Est GFR (MDRD) Af Amer 31 L, Est GFR (MDRD) Non-Af 26 L, BUN/Creatinine Ratio 12.2, Glucose 112 H, Calcium 7.9 L Microbiology: Microbiology 05/19/21 22:15 Urine, Catheterized Urine Culture - Final Culture exhibits no growth. 05/19/21 20:38 Blood Culture (Wb) - Anticubital Left Blood Culture - Preliminary No growth in 48 hours. 05/19/21 21:16 Blood Culture (Wb) - Left Wrist Blood Culture - Preliminary No growth in 48 hours. Meaningful Use Info Meaningful Use Diagnoses (Choose all that apply): None applicable Discharge Plan Admission Admit Date/Time: 05/20/21 05:34 Attending Provider: Kortney Bella Primary Care Provider: Herve Mcfadden Consulting Providers: Masood Alonzo ; Darwin Martell ; Crystal Sotelo RESOLUTION SPECIALIST Discharge Orders/Prescriptions Prescriptions: No Action albuterol sulfate [ProAir HFA] 1 PUFF inhaler 1 - 2 puff inhalation Q6H PRN PRN (Reason: Dyspnea) RF: 0 acetaminophen [Tylenol] 325 MG tablet 325 - 650 mg PO Q6H PRN PRN (Reason: Pain) RF: 0 atorvastatin 20 MG tablet 20 mg PO QHS RF: 0 potassium chloride 10 mEq Capsule, Extended Release 10 meq PO DAILY RF: 0 torsemide 20 mg Tablet 20 mg PO DAILY RF: 0 levothyroxine 25 mcg Tablet 25 mcg PO DAILY RF: 0 metoprolol succinate 25 mg Tablet Extended Release 24 Hr 25 mg PO DAILY RF: 0 Eliquis 5 MG tablet 2.5 mg PO BID RF: 0 Referrals / Follow Up: Herve Mcfadden MD [Primary Care Provider] - Disposition Disposition (needs filled in before D/C Order can be placed): Acute Care Hospital Charges/Coding Visit Charges Inpatient E&M: 34052 Disch Hosp
== END 2021-05-24 08:22 | disposition short-term general hospital (02) | DRG 682 ==
LOC: ED 05-20 00:51 → ICU 05-20 06:36 → PCU 05-23 09:43
PROVIDERS: Internal Medicine Critical Care Medicine; Emergency Provider Emergency Medicine; PCP Family Medicine; Visit Provider Student in an Organized Health Care Education/Training Program
DX: N17.9 Acute kidney failure, unspecified (principal); R57.1 Hypovolemic shock; C79.51 Secondary malignant neoplasm of bone; A04.72 Enterocolitis due to Clostridium difficile, not specified as recurrent; E87.1 Hypo-osmolality and hyponatremia; I50.22 Chronic systolic (congestive) heart failure; E87.2 Acidosis; C50.919 Malignant neoplasm of unspecified site of unspecified female breast; E87.5 Hyperkalemia; Z90.11 Acquired absence of right breast and nipple; Z79.2 Long term (current) use of antibiotics; Z87.891 Personal history of nicotine dependence; D63.0 Anemia in neoplastic disease; D69.6 Thrombocytopenia, unspecified; E03.9 Hypothyroidism, unspecified; I11.0 Hypertensive heart disease with heart failure; Z95.5 Presence of coronary angioplasty implant and graft; I48.91 Unspecified atrial fibrillation; R13.10 Dysphagia, unspecified
CPT/HCPCS: 36415; 51702; 71045; 74176; 74230; 80048; 80053; 81001; 83605; 83690; 84132; 84443; 84484; 85025; 87040; 87086; 92526; 92610; 92611; 93005; 94640; 94762; 97162; 97166; 97530; 97802; 99285; J7030; J7050; J7120; A4216; J0610; J2405; J7799